=== PATIENT | female | born 1975 | race Two or more races ===

== ENCOUNTER 2017-04-22 05:35 | Emergency (ER) | payer MEDICAID ==
[~2017-04-22] VITALS: Ht 162.6 cm; Wt 81.6 kg
[2017-04-22] MEDS ORDERED: LORazepam 2MG/ML-1ML VIAL IM ONE (08:45)
[2017-04-22 09:14] LABS: Basophils # (auto) 0.1 uL; Basophils % (auto) 0.9 % (0.0-2.0); Eosinophils # (auto) 0.1 uL; Eosinophils % (auto) 1.6 % (0.0-7.0); Hematocrit 41.6 % (36.0-46.0); Hemoglobin 14.2 g/dL (12.2-16.2); Lymphocytes # (auto) 2.2 uL; Lymphocytes % (auto) 27.5 % (10.0-50.0); Mean Corpuscular Hemoglobin 29.7 pg (28.0-32.0); Mean Corpuscular Hgb Conc. 34.2 g/dL (32.0-36.0); Mean Corpuscular Volume 86.9 fL (80.0-100.0); Monocytes # (auto) 0.5 uL; Monocytes % (auto) 5.8 % (0.0-12.0); Neutrophils # (auto) 5.2 uL; Neutrophils % (auto) 64.2 % (37.0-80.0); Nucleated Red Blood Cells % 0.1 %; Platelet Count (auto) 272 10^3/uL (140-450); Red Blood Cells 4.79 10^6/uL (4.0-5.20); Red Cell Distribution Width 12.8 % (11.8-14.3); White Blood Cell 8.1 10^3/uL (4.4-10.8)
[2017-04-22 09:29] VITALS: BP 113/60
[2017-04-22 09:29] LABS: INR 0.96 (0.9-1.15); Partial Thromboplastin Time 27.6 sec (22.64-33.71); Prothrombin Time 10.5 sec (9.37-12.3)
[2017-04-22 09:38] LABS: Alanine Aminotransferase 37 U/L (13-56); Albumin 3.5 g/dL (3.4-5.0); Alkaline Phosphatase 87 U/L (45-117); Anion Gap 9 (5-15); Aspartate Aminotransferase 17 U/L (15-37); BUN/Creatinine Ratio 12.1; Bilirubin, Total 0.6 mg/dL (0.2-1.0); Blood Urea Nitrogen 8 mg/dL (7-18); Calcium 8.5 mg/dL (8.5-10.1); Carbon Dioxide 23 mmol/L (21-32); Chloride 103 mmol/L (98-107); GFR African American 128 mL/min; GFR Non-African American 105 mL/min; Glucose 241 mg/dL (74-106); Potassium 4.1 mmol/L (3.5-5.1); Sodium 135 mmol/L (136-145)
== END 2017-04-22 09:53 | disposition home or self-care (01) ==
LOC: EDBD 05:35 → ER 05:40
DX: R07.9 Chest pain, unspecified (principal); F41.9 Anxiety disorder, unspecified; E11.9 Type 2 diabetes mellitus without complications
CPT/HCPCS: 36415; 71020; 80053; 84484; 84702; 85025; 85610; 85730; 96372; 99285; J2060

== ENCOUNTER 2019-02-05 14:21 | Emergency (ER) | payer MEDICAID ==
[~2019-02-05] VITALS: Ht 162.6 cm; Wt 82.6 kg
[2019-02-05 14:43] VITALS: BP 146/69
[2019-02-05] MEDS ORDERED: IPRATROPIUM BROM 0.5 MG/2.5ML INH SOL NEB ONE (15:00)
[2019-02-05] MEDS ORDERED: ALBUTEROL SULF 2.5 MG/0.5ML(0.5%) NEB SOLN NEB ONE (15:00)
[2019-02-05] MEDS ORDERED: cefTRIAXone SOD 1,000 MG VL IM ONE (15:00)
== END 2019-02-05 15:37 | disposition home or self-care (01) ==
LOC: ER 14:24
DX: J45.909 Unspecified asthma, uncomplicated (principal); J02.9 Acute pharyngitis, unspecified; E11.9 Type 2 diabetes mellitus without complications; F41.9 Anxiety disorder, unspecified
CPT/HCPCS: 71046; 94640; 96372; 99283; J0696; J7611; J7644

== ENCOUNTER 2019-12-24 00:01 | Emergency (ER) | payer MEDICAID ==
[~2019-12-24] VITALS: Ht 162.6 cm; Wt 83.0 kg
[~2019-12-24 00:01] MED LIST: BAC09TP TOP; HYDR-4833 PO; IBUP800T24 PO; METF-929 PO; VALA500T33 PO
[2019-12-24 01:51] LABS: Basophils # (auto) 0.1 10 ^3/uL (0-0.2); Eosinophils # (auto) 0 10 ^3/uL (0-0.8); Eosinophils % (auto) 0.2 % (0.0-7.0); Hematocrit 43.7 % (36.0-46.0); Lymphocytes # (auto) 1.1 10 ^3/uL (0.4-5.4); Lymphocytes % (auto) 10.9 % (10.0-50.0); Mean Corpuscular Hemoglobin 29.8 pg (28.0-32.0); Mean Corpuscular Hgb Conc. 34.3 g/dL (32.0-36.0); Mean Corpuscular Volume 86.9 fL (80.0-100.0); Monocytes # (auto) 0.1 10 ^3/uL (0-1.3); Neutrophils # (auto) 8.5 10 ^3/uL (1.6-8.6); Neutrophils % (auto) 86.9 % (37.0-80.0); Nucleated Red Blood Cells % 0.1 %; Platelet Count (auto) 358 10^3/uL (140-450); Red Blood Cells 5.03 10^6/uL (4.0-5.20); Red Cell Distribution Width 12.9 % (11.8-14.3); White Blood Cell 9.8 10^3/uL (4.4-10.8)
[2019-12-24 02:11] LABS: Albumin 3.7 g/dL (3.4-5.0); BUN/Creatinine Ratio 21.8; Calcium 9.4 mg/dL (8.5-10.1); Potassium 4.4 mmol/L (3.5-5.1)
[2019-12-24 02:27] LABS: Total Protein 7.7 g/dL (6.4-8.2)
[2019-12-24 02:40] LABS: Bilirubin, Total 0.4 mg/dL (0.2-1.0)
[2019-12-24] MEDS ORDERED: InsuLIN REG 1unit/0.01ml Soln (100units/ml) SC ONE (02:45)
[2019-12-24 03:43] LABS: Urine Bacteria NONE SEEN /hpf (None Seen); Urine Blood 2+ /uL (Negative); Urine Specific Gravity 1.037 (1.001-1.035); Urine WBC 2 /hpf (0 - 5)
[2019-12-24 03:47] VITALS: BP 130/72
== END 2019-12-24 03:53 | disposition home or self-care (01) ==
LOC: ER 00:03
DX: E11.65 Type 2 diabetes mellitus with hyperglycemia (principal); J45.909 Unspecified asthma, uncomplicated
CPT/HCPCS: 36415; 80053; 81001; 82010; 85025

== ENCOUNTER 2020-05-24 11:22 | Emergency (ER) | payer MEDICAID ==
[~2020-05-24] VITALS: Ht 162.6 cm; Wt 81.6 kg
[2020-05-24] MEDS ORDERED: methylPREDNISolone SOD SUCC 125 MG/2 ML VL IM ONE (14:30)
[2020-05-24 14:45] VITALS: BP 130/82
== END 2020-05-24 15:21 | disposition home or self-care (01) ==
LOC: ER 11:22
DX: J45.909 Unspecified asthma, uncomplicated (principal); Z20.828 Contact with and (suspected) exposure to other viral communicable diseases
CPT/HCPCS: 36415; 71045; 87426; 96372; 99284; C9803; J2930; U0003

== ENCOUNTER 2020-05-29 09:00 | Emergency (ER) | payer MEDICAID ==
[~2020-05-29] VITALS: Ht 162.6 cm; Wt 81.6 kg
[2020-05-29 10:57] LABS: Basophils # (auto) 0 10 ^3/uL (0-0.2); Basophils % (auto) 0.3 % (0.0-2.0); Eosinophils # (auto) 0 10 ^3/uL (0-0.8); Eosinophils % (auto) 0.5 % (0.0-7.0); Hematocrit 43.9 % (36.0-46.0); Hemoglobin 14.8 g/dL (12.2-16.2); Lymphocytes # (auto) 1.9 10 ^3/uL (0.4-5.4); Lymphocytes % (auto) 26.5 % (10.0-50.0); Mean Corpuscular Hemoglobin 28.8 pg (28.0-32.0); Mean Corpuscular Hgb Conc. 33.7 g/dL (32.0-36.0); Mean Corpuscular Volume 85.5 fL (80.0-100.0); Monocytes # (auto) 0.7 10 ^3/uL (0-1.3); Neutrophils # (auto) 4.4 10 ^3/uL (1.6-8.6); Neutrophils % (auto) 62.7 % (37.0-80.0); Nucleated Red Blood Cells % 0.1 %; Platelet Count (auto) 320 10^3/uL (140-450); Red Blood Cells 5.13 10^6/uL (4.0-5.20); Red Cell Distribution Width 13.1 % (11.8-14.3)
[2020-05-29 11:00] VITALS: BP 132/80
[2020-05-29 11:18] LABS: Albumin 3.6 g/dL (3.4-5.0); Anion Gap 8 (5-15); Blood Urea Nitrogen 16 mg/dL (7-18); Calcium 9.2 mg/dL (8.5-10.1); Carbon Dioxide 26 mmol/L (21-32); Chloride 100 mmol/L (98-107); Glucose 199 mg/dL (74-106); Potassium 3.3 mmol/L (3.5-5.1); Sodium 134 mmol/L (136-145)
[2020-05-29 11:24] LABS: Alanine Aminotransferase 42 U/L (13-56); Alkaline Phosphatase 90 U/L (45-117); Aspartate Aminotransferase 22 U/L (15-37); BUN/Creatinine Ratio 19.3; Bilirubin, Total 0.3 mg/dL (0.2-1.0); GFR African American 96 mL/min; GFR Non-African American 80 mL/min; Total Protein 8.1 g/dL (6.4-8.2)
== END 2020-05-29 11:45 | disposition home or self-care (01) ==
LOC: ER 09:00
DX: U07.1 COVID-19 (principal); J18.9 Pneumonia, unspecified organism; E11.65 Type 2 diabetes mellitus with hyperglycemia
CPT/HCPCS: 36415; 71045; 80053; 84484; 85025; 85379

== ENCOUNTER 2021-06-27 16:31 | Emergency (ER) | payer MEDICARE, MEDICAID ==
[~2021-06-27] VITALS: Ht 162.6 cm; Wt 81.6 kg
[~2021-06-27 16:31] MED LIST changes: -IBUP800T24 PO; +IBUP800T27 PO
[2021-06-27 16:43] VITALS: BP 147/76
[2021-06-27] MEDS ORDERED: SODIUM CHLORIDE 0.9% 1,000 ML IV ONE (18:30)
[2021-06-27 19:10] LABS: Urine Bacteria NONE SEEN /hpf (None Seen); Urine Blood 3+ /uL (Negative); Urine Specific Gravity 1.024 (1.001-1.035); Urine WBC 2 /hpf (0 - 5)
[2021-06-27 19:42] LABS: Basophils # (auto) 0 10 ^3/uL (0-0.2); Basophils % (auto) 0.4 % (0.0-2.0); Eosinophils # (auto) 0 10 ^3/uL (0-0.8); Eosinophils % (auto) 0.1 % (0.0-7.0); Hematocrit 43.2 % (36.0-46.0); Hemoglobin 14.3 g/dL (12.2-16.2); Lymphocytes # (auto) 1.1 10 ^3/uL (0.4-5.4); Lymphocytes % (auto) 11.7 % (10.0-50.0); Mean Corpuscular Hemoglobin 28.5 pg (28.0-32.0); Mean Corpuscular Hgb Conc. 33.2 g/dL (32.0-36.0); Mean Corpuscular Volume 85.7 fL (80.0-100.0); Monocytes # (auto) 0.1 10 ^3/uL (0-1.3); Monocytes % (auto) 1.1 % (0.0-12.0); Neutrophils # (auto) 8.4 10 ^3/uL (1.6-8.6); Neutrophils % (auto) 86.7 % (37.0-80.0); Red Blood Cells 5.04 10^6/uL (4.0-5.20); Red Cell Distribution Width 13.2 % (11.8-14.3); White Blood Cell 9.7 10^3/uL (4.4-10.8)
[2021-06-27 20:24] LABS: Albumin 3.7 g/dL (3.4-5.0); Magnesium 2.6 mg/dL (1.6-2.6); Potassium 3.9 mmol/L (3.5-5.1)
[2021-06-27 20:28] LABS: BUN/Creatinine Ratio 18.8; Bilirubin, Total 0.4 mg/dL (0.2-1.0); Total Protein 7.9 g/dL (6.4-8.2)
== END 2021-06-27 23:19 | disposition home or self-care (01) ==
LOC: ER 16:34
DX: E11.65 Type 2 diabetes mellitus with hyperglycemia (principal); J45.909 Unspecified asthma, uncomplicated; F41.9 Anxiety disorder, unspecified
CPT/HCPCS: 36415; 36600; 71045; 80053; 81001; 82010; 82805; 83735; 84702; 85025

== ENCOUNTER 2022-03-30 19:18 | Inpatient (IN) | payer MEDICARE, MEDICAID ==
[~2022-03-30] VITALS: Ht 162.6 cm; Wt 89.7 kg
[2022-03-30 23:33] LABS: Eosinophils # (auto) 0.4 10 ^3/uL (0-0.8); Eosinophils % (auto) 3.9 % (0.0-7.0); Monocytes # (auto) 0.8 10 ^3/uL (0-1.3)
[2022-03-30 23:36] LABS: Basophils # (auto) 0.1 10 ^3/uL (0-0.2); Hematocrit 42.2 % (36.0-46.0); Hemoglobin 13.7 g/dL (12.2-16.2); Lymphocytes # (auto) 2.5 10 ^3/uL (0.4-5.4); Lymphocytes % (auto) 27.9 % (10.0-50.0); Mean Corpuscular Hemoglobin 26.9 pg (28.0-32.0); Mean Corpuscular Hgb Conc. 32.5 g/dL (32.0-36.0); Mean Corpuscular Volume 82.7 fL (80.0-100.0); Monocytes % (auto) 9.1 % (0.0-12.0); Neutrophils # (auto) 5.3 10 ^3/uL (1.6-8.6); Neutrophils % (auto) 58.1 % (37.0-80.0); Nucleated Red Blood Cells % 0.1 %; Red Cell Distribution Width 14.7 % (11.8-14.3); White Blood Cell 9.1 10^3/uL (4.4-10.8)
[2022-03-30 23:52] LABS: Albumin 3.4 g/dL (3.4-5.0); Calcium 8.6 mg/dL (8.5-10.1)
[2022-03-30 23:55] LABS: BUN/Creatinine Ratio 25.3
[2022-03-30 23:58] LABS: Bilirubin, Total 0.4 mg/dL (0.2-1.0); Total Protein 7.4 g/dL (6.4-8.2)
[2022-03-31] MEDS ORDERED: ONDANSETRON HCL 4 MG/2 ML VIAL IV ONE ×2 (00:30→05:45)
[2022-03-31] MEDS ORDERED: KETOROLAC TROMETH 30 MG/ML 1ML VIAL IV ONE (00:30)
[2022-03-31 01:09] LABS: Urine Bacteria NONE SEEN /hpf (None Seen); Urine Blood Negative /uL (Negative); Urine Specific Gravity 1.034 (1.001-1.035); Urine WBC 2 /hpf (0 - 5)
[2022-03-31] MEDS ORDERED: HYDROmorphone HCL 2 MG/ML VL/or syr IV ONE (05:45)
[2022-03-31] MEDS ORDERED: DEXTROSE (50%) 50ML SYRG IV PRN (06:30)
[2022-03-31] MEDS ORDERED: SODIUM CHLORIDE 0.9% 1,000 ML IV SCH (06:30)
[2022-03-31] MEDS ORDERED: MORPHINE SULFATE INJ 2 MG/ml SYRG IV PRN (06:30)
[2022-03-31] MEDS: PANTOPRAZOLE 40 MG/10 ML VIAL INJ IV SCH (11:10)
[2022-03-31] MEDS: ONDANSETRON HCL 4 MG/2 ML VIAL IV PRN ×2 (11:15→23:44)
[2022-03-31] MEDS: ACCU-CHEK COMFORT CURVE STRIP VI SCH ×3 (13:31→23:32)
[2022-03-31] MEDS: InsuLIN REG 1unit/0.01ml Soln (100units/ml) SC SCH ×3 (13:32→23:32)
[2022-03-31] MEDS ORDERED: HYDROmorphone HCL 2 MG/ML VL/or syr IV PRN (14:15)
[2022-03-31] MEDS: LACTATED RINGER'S 1,000 ML IV SCH ×2 (14:43→22:04)
[2022-03-31 16:55] VITALS: BP 131/72
[2022-03-31] MEDS ORDERED: EMPA1TAB PO (18:15)
[2022-03-31 22:00] VITALS: BP 134/72
[2022-04-01 05:00] VITALS: BP 117/55
[2022-04-01] MEDS: ACCU-CHEK COMFORT CURVE STRIP VI SCH ×4 (05:29→22:51)
[2022-04-01] MEDS: InsuLIN REG 1unit/0.01ml Soln (100units/ml) SC SCH ×4 (05:29→23:20)
[2022-04-01] MEDS: LACTATED RINGER'S 1,000 ML IV SCH ×2 (05:34→18:51)
[2022-04-01 06:29] LABS: Albumin 2.7 g/dL (3.4-5.0); Calcium 8.4 mg/dL (8.5-10.1); Potassium 3.6 mmol/L (3.5-5.1)
[2022-04-01 06:34] LABS: BUN/Creatinine Ratio 19.6; Bilirubin, Total 0.5 mg/dL (0.2-1.0); Total Protein 5.8 g/dL (6.4-8.2)
[2022-04-01 06:36] LABS: Cholesterol 201 mg/dL (< 200); HDL Cholesterol 47 mg/dL (40-59); LDL Cholesterol 127 mg/dL (< 100); Lipase 213 U/L (73-393); Triglycerides 248 mg/dL (< 150)
[2022-04-01 06:49] LABS: Basophils # (auto) 0 10 ^3/uL (0-0.2); Basophils % (auto) 0.6 % (0.0-2.0); Eosinophils # (auto) 0.2 10 ^3/uL (0-0.8); Eosinophils % (auto) 3.6 % (0.0-7.0); Hematocrit 37.9 % (36.0-46.0); Hemoglobin 12.5 g/dL (12.2-16.2); Lymphocytes # (auto) 1.8 10 ^3/uL (0.4-5.4); Lymphocytes % (auto) 27.9 % (10.0-50.0); Mean Corpuscular Hgb Conc. 33.1 g/dL (32.0-36.0); Mean Corpuscular Volume 81.7 fL (80.0-100.0); Monocytes # (auto) 0.5 10 ^3/uL (0-1.3); Monocytes % (auto) 7.9 % (0.0-12.0); Neutrophils # (auto) 3.9 10 ^3/uL (1.6-8.6); Nucleated Red Blood Cells % 0.1 %; Red Blood Cells 4.64 10^6/uL (4.0-5.20); Red Cell Distribution Width 14.7 % (11.8-14.3); White Blood Cell 6.5 10^3/uL (4.4-10.8)
[2022-04-01 09:07] VITALS: BP 114/77
[2022-04-01] MEDS: PANTOPRAZOLE 40 MG/10 ML VIAL INJ IV SCH (09:16)
[2022-04-01] MEDS: OXYCODONE W/ ACETAMINOPHEN 5/325MG TABLET PO PRN ×2 (10:36→21:28)
[2022-04-01 12:30] VITALS: BP 133/76
[2022-04-01] MEDS ORDERED: ATOR-47 PO (14:37)
[2022-04-01 17:20] VITALS: BP 127/59
[2022-04-01 22:00] VITALS: BP 129/71
[2022-04-01] MEDS ORDERED: ATORVASTATIN 20 MG TAB PO SCH (22:00)
[2022-04-02] MEDS: LACTATED RINGER'S 1,000 ML IV SCH (03:32)
[2022-04-02 05:00] VITALS: BP 108/46
[2022-04-02] MEDS: ACCU-CHEK COMFORT CURVE STRIP VI SCH ×2 (05:36→12:00)
[2022-04-02] MEDS: InsuLIN REG 1unit/0.01ml Soln (100units/ml) SC SCH ×3 (05:47→12:00)
[2022-04-02] MEDS: OXYCODONE W/ ACETAMINOPHEN 5/325MG TABLET PO PRN (06:32)
[2022-04-02 09:00] VITALS: BP 123/69
[2022-04-02] MEDS: PANTOPRAZOLE 40 MG/10 ML VIAL INJ IV SCH (09:19)
[2022-04-02] MEDS ORDERED: DEXL30CA4 PO (10:19)
[2022-04-02 10:49] VITALS: BP 123/69
[2022-04-04] MEDS ORDERED: ONDA-144 PO (12:47)
== END 2022-04-02 12:08 | disposition home or self-care (01) | DRG 440 ==
LOC: ER 19:21 → OVERFLOW 03-31 06:32 → EAST 03-31 16:34
PROVIDERS: ADMIT Nurse Practitioner; ATTEND Nurse Practitioner Acute Care
DX: K85.90 Acute pancreatitis without necrosis or infection, unspecified (principal); E11.9 Type 2 diabetes mellitus without complications; E66.9 Obesity, unspecified; J45.909 Unspecified asthma, uncomplicated; K44.9 Diaphragmatic hernia without obstruction or gangrene; K59.00 Constipation, unspecified; Z20.822 Contact with and (suspected) exposure to COVID-19; G89.29 Other chronic pain; F41.9 Anxiety disorder, unspecified; K58.9 Irritable bowel syndrome, unspecified; M54.9 Dorsalgia, unspecified; E78.5 Hyperlipidemia, unspecified; Z79.891 Long term (current) use of opiate analgesic; Z68.33 Body mass index [BMI] 33.0-33.9, adult; Z88.8 Allergy status to other drugs, medicaments and biological substances; Z79.899 Other long term (current) drug therapy; Z83.3 Family history of diabetes mellitus
CPT/HCPCS: 36415; 74176; 76705; 80053; 80061; 81001; 81025; 82962; 83036; 83690; 84702; 85025; 87426; 96361; 96374; 96375; C9113; G0378; J1815; J1885; J2405

== ENCOUNTER 2022-12-24 08:46 | Emergency (ER) | payer MEDICARE, MEDICAID ==
[~2022-12-24] VITALS: Ht 162.6 cm; Wt 81.8 kg
[~2022-12-24 08:46] MED LIST changes: +ATOR-47 PO; +DEXL30CA4 PO; +EMPA1TAB PO; +IBUP-1456 PO; -IBUP800T27 PO; +ONDA-144 PO
[2022-12-24 09:42] LABS: Basophils # (auto) 0.1 10 ^3/uL (0-0.2); Eosinophils # (auto) 0.4 10 ^3/uL (0-0.8); Hemoglobin 11.9 g/dL (12.2-16.2); Lymphocytes # (auto) 2.1 10 ^3/uL (0.4-5.4); Mean Corpuscular Hemoglobin 24.2 pg (28.0-32.0); Monocytes # (auto) 0.6 10 ^3/uL (0-1.3); Neutrophils # (auto) 5.8 10 ^3/uL (1.6-8.6); Red Blood Cells 4.92 10^6/uL (4.0-5.20)
[2022-12-24 09:44] LABS: Basophils % (auto) 0.9 % (0.0-2.0); Eosinophils % (auto) 4.2 % (0.0-7.0); Lymphocytes % (auto) 23.9 % (10.0-50.0); Mean Corpuscular Hgb Conc. 32.2 g/dL (32.0-36.0); Mean Corpuscular Volume 75.1 fL (80.0-100.0); Monocytes % (auto) 6.7 % (0.0-12.0); Neutrophils % (auto) 64.3 % (37.0-80.0); Red Cell Distribution Width 14.7 % (11.8-14.3)
[2022-12-24 09:56] LABS: Albumin 3.3 g/dL (3.4-5.0); BUN/Creatinine Ratio 21.3 (10.0-20.0); Calcium 8.8 mg/dL (8.5-10.1); Potassium 3.7 mmol/L (3.5-5.1)
[2022-12-24 09:59] LABS: Bilirubin, Total 0.3 mg/dL (0.2-1.0); Total Protein 7.5 g/dL (6.4-8.2)
[2022-12-24 10:41] LABS: Urine Bacteria NONE SEEN /hpf (None Seen); Urine Blood 3+ /uL (Negative); Urine Mucus FEW (None Seen); Urine Specific Gravity 1.025 (1.001-1.035); Urine WBC 2 /hpf (0 - 5)
[2022-12-24] MEDS ORDERED: SODIUM CHLORIDE 0.9% 1,000 ML IV ONE (11:45)
[2022-12-24 14:12] VITALS: BP 124/70
== END 2022-12-24 15:19 | disposition home or self-care (01) ==
LOC: ER 08:46
DX: R10.13 Epigastric pain (principal); E11.65 Type 2 diabetes mellitus with hyperglycemia; F41.9 Anxiety disorder, unspecified; J45.909 Unspecified asthma, uncomplicated; Z98.890 Other specified postprocedural states; Z88.8 Allergy status to other drugs, medicaments and biological substances; Z79.84 Long term (current) use of oral hypoglycemic drugs; Z79.1 Long term (current) use of non-steroidal anti-inflammatories (NSAID); Z79.899 Other long term (current) drug therapy
CPT/HCPCS: 36415; 74176; 80053; 81001; 81025; 82150; 82962; 83690; 85025; 96360; 99284; J7030

== ENCOUNTER 2023-01-23 01:25 | Inpatient (IN) | payer MEDICARE, MEDICAID ==
[~2023-01-23] VITALS: Ht 162.6 cm; Wt 86.0 kg
[2023-01-23 02:17] LABS: Basophils # (auto) 0.1 10 ^3/uL (0-0.2); Eosinophils # (auto) 0.1 10 ^3/uL (0-0.8); Eosinophils % (auto) 0.6 % (0.0-7.0); Hematocrit 35.6 % (36.0-46.0); Hemoglobin 11.4 g/dL (12.2-16.2); Monocytes # (auto) 0.7 10 ^3/uL (0-1.3); White Blood Cell 12.2 10^3/uL (4.4-10.8)
[2023-01-23 02:18] LABS: Basophils % (auto) 0.6 % (0.0-2.0); Lymphocytes # (auto) 1.9 10 ^3/uL (0.4-5.4); Lymphocytes % (auto) 15.2 % (10.0-50.0); Mean Corpuscular Hemoglobin 24.1 pg (28.0-32.0); Mean Corpuscular Volume 75.5 fL (80.0-100.0); Monocytes % (auto) 5.5 % (0.0-12.0); Neutrophils # (auto) 9.6 10 ^3/uL (1.6-8.6); Neutrophils % (auto) 78.1 % (37.0-80.0); Red Blood Cells 4.72 10^6/uL (4.0-5.20); Red Cell Distribution Width 16.8 % (11.8-14.3)
[2023-01-23 02:32] LABS: Albumin 3.3 g/dL (3.4-5.0); Calcium 9.4 mg/dL (8.5-10.1); Potassium 3.9 mmol/L (3.5-5.1)
[2023-01-23 02:35] LABS: BUN/Creatinine Ratio 18.4 (10.0-20.0); Bilirubin, Total 0.3 mg/dL (0.2-1.0); Total Protein 7.1 g/dL (6.4-8.2)
[2023-01-23 02:40] VITALS: PULSE 82; RESP 16; O2SAT 96
[2023-01-23] MEDS ORDERED: cefTRIAXone 1GM/50ML D5W 50 ML IV ONE (04:15)
[2023-01-23] MEDS ORDERED: PANTOPRAZOLE 40mg/50ML NS AE 50 ML IV ONE ×3 (04:15→11:00)
[2023-01-23] MEDS ORDERED: PANTOPRAZOLE 80 MG in SODIUM CHL 0.9% 100 ML IV ONE (04:15)
[2023-01-23] MEDS ORDERED: PANTOPRAZOLE 40 MG/10 ML VIAL INJ IV ONE (04:35)
[2023-01-23] MEDS ORDERED: MORPHINE SULFATE INJ 2 MG/ml SYRG IV PRN (06:45)
[2023-01-23] MEDS ORDERED: DEXTROSE (50%) 50ML SYRG IV PRN (06:45)
[2023-01-23] MEDS ORDERED: ACETAMINOPHEN 325 MG TAB PO PRN (06:45)
[2023-01-23] MEDS ORDERED: DOCUSATE SOD 100 MG CAP PO PRN (06:45)
[2023-01-23] MEDS ORDERED: NITROGLYCERIN 0.4 MG SL TAB SL PRN (06:45)
[2023-01-23] MEDS ORDERED: ONDANSETRON HCL 4 MG/2 ML VIAL IV PRN (06:45)
[2023-01-23] MEDS: ACCU-CHEK COMFORT CURVE STRIP VI SCH ×4 (07:15→22:13)
[2023-01-23 07:29] LABS: Basophils # (auto) 0.1 10 ^3/uL (0-0.2); Basophils % (auto) 0.5 % (0.0-2.0); Eosinophils # (auto) 0.1 10 ^3/uL (0-0.8); Hemoglobin 10.6 g/dL (12.2-16.2); Lymphocytes # (auto) 1.8 10 ^3/uL (0.4-5.4); White Blood Cell 11.6 10^3/uL (4.4-10.8)
[2023-01-23 07:32] LABS: Eosinophils % (auto) 0.6 % (0.0-7.0); Hematocrit 33.1 % (36.0-46.0); Lymphocytes % (auto) 15.5 % (10.0-50.0); Mean Corpuscular Hgb Conc. 32.1 g/dL (32.0-36.0); Mean Corpuscular Volume 74.8 fL (80.0-100.0); Monocytes # (auto) 0.7 10 ^3/uL (0-1.3); Monocytes % (auto) 5.7 % (0.0-12.0); Neutrophils % (auto) 77.7 % (37.0-80.0); Red Blood Cells 4.42 10^6/uL (4.0-5.20); Red Cell Distribution Width 16.4 % (11.8-14.3)
[2023-01-23 07:33] LABS: Potassium 3.7 mmol/L (3.5-5.1)
[2023-01-23] MEDS: HYDROcodone-ACET 5/325MG TAB PO PRN ×3 (07:37→22:13)
[2023-01-23] MEDS: InsuLIN REG 1unit/0.01ml Soln (100units/ml) SC SCH ×4 (07:38→22:23)
[2023-01-23] MEDS: SODIUM CHLORIDE 0.9% 1,000 ML IV SCH ×2 (07:38→22:21)
[2023-01-23 07:39] LABS: Albumin 3.1 g/dL (3.4-5.0); BUN/Creatinine Ratio 19.1 (10.0-20.0); Bilirubin, Total 0.2 mg/dL (0.2-1.0); Total Protein 6.8 g/dL (6.4-8.2)
[2023-01-23 07:55] VITALS: PULSE 92; RESP 17; O2SAT 97
[2023-01-23] MEDS: cefTRIAXone 1GM/50ML D5W 50 ML IV SCH (09:00)
[2023-01-23 19:55] VITALS: PULSE 77; RESP 15; O2SAT 96
[2023-01-23 21:38] VITALS: PULSE 82
[2023-01-23 21:50] VITALS: BP 132/67; PULSE 77; RESP 18; TEMP 98.2; O2SAT 98
[2023-01-23 23:00] VITALS: BP 132/67; PULSE 77; RESP 18; TEMP 98.2; O2SAT 98
[2023-01-24] VITALS (7 sets, daily range): BP systolic 127–136; BP diastolic 56–71; PULSE 69–95; RESP 16–20; TEMP 97.9–98.4; O2SAT 92–98
[2023-01-24] MEDS ORDERED: SEMA2INJ3 SC (00:15)
[2023-01-24] MEDS: HYDROcodone-ACET 5/325MG TAB PO PRN ×3 (04:32→21:28)
[2023-01-24] MEDS: ACCU-CHEK COMFORT CURVE STRIP VI SCH ×4 (06:05→21:24)
[2023-01-24] MEDS: InsuLIN REG 1unit/0.01ml Soln (100units/ml) SC SCH ×4 (06:05→21:27)
[2023-01-24 06:32] LABS: Potassium 3.5 mmol/L (3.5-5.1)
[2023-01-24 06:37] LABS: Eosinophils # (auto) 0.2 10 ^3/uL (0-0.8); Hematocrit 33.1 % (36.0-46.0); Monocytes # (auto) 0.6 10 ^3/uL (0-1.3); Neutrophils # (auto) 6.5 10 ^3/uL (1.6-8.6); Red Blood Cells 4.39 10^6/uL (4.0-5.20); Red Cell Distribution Width 16.6 % (11.8-14.3)
[2023-01-24 06:39] LABS: Basophils # (auto) 0.1 10 ^3/uL (0-0.2); Basophils % (auto) 0.7 % (0.0-2.0); Eosinophils % (auto) 2.1 % (0.0-7.0); Hemoglobin 10.7 g/dL (12.2-16.2); Lymphocytes # (auto) 2.2 10 ^3/uL (0.4-5.4); Lymphocytes % (auto) 22.9 % (10.0-50.0); Mean Corpuscular Hemoglobin 24.3 pg (28.0-32.0); Mean Corpuscular Hgb Conc. 32.2 g/dL (32.0-36.0); Mean Corpuscular Volume 75.4 fL (80.0-100.0); Monocytes % (auto) 6.1 % (0.0-12.0); Neutrophils % (auto) 68.2 % (37.0-80.0); Nucleated Red Blood Cells % 0.1 %; White Blood Cell 9.6 10^3/uL (4.4-10.8)
[2023-01-24 06:48] LABS: Albumin 2.8 g/dL (3.4-5.0); BUN/Creatinine Ratio 13.8 (10.0-20.0); Bilirubin, Total 0.3 mg/dL (0.2-1.0); Calcium 8.1 mg/dL (8.5-10.1); Total Protein 6.3 g/dL (6.4-8.2)
[2023-01-24] MEDS: cefTRIAXone 1GM/50ML D5W 50 ML IV SCH (09:00)
[2023-01-24] MEDS: SODIUM CHLORIDE 0.9% 1,000 ML IV SCH (16:05)
[2023-01-25] MEDS: HYDROcodone-ACET 5/325MG TAB PO PRN (02:42)
[2023-01-25 05:11] VITALS: BP 134/62; PULSE 73; RESP 17; TEMP 98; O2SAT 97
[2023-01-25] MEDS: InsuLIN REG 1unit/0.01ml Soln (100units/ml) SC SCH ×2 (06:46→11:30)
[2023-01-25] MEDS: ACCU-CHEK COMFORT CURVE STRIP VI SCH ×2 (06:49→11:30)
[2023-01-25 08:00] VITALS: PULSE 64; PULSE 80; RESP 18; O2SAT 97
[2023-01-25] MEDS: SODIUM CHLORIDE 0.9% 1,000 ML IV SCH (08:45)
[2023-01-25 09:00] VITALS: BP 129/70; PULSE 65; RESP 20; TEMP 98.3; O2SAT 95
[2023-01-25] MEDS: cefTRIAXone 1GM/50ML D5W 50 ML IV SCH (09:55)
[2023-01-25 10:39] VITALS: TEMP 36.8
[2023-01-25 12:42] VITALS: BP 149/77; PULSE 72; RESP 18; TEMP 98.5; O2SAT 97
== END 2023-01-25 14:22 | disposition home or self-care (01) | DRG 378 ==
LOC: ER 01:28 → TELE 06:47 → TELE-EAST 21:50
PROVIDERS: ADMIT Family Medicine; ATTEND Family Medicine
DX: K62.5 Hemorrhage of anus and rectum (principal); D62 Acute posthemorrhagic anemia; N92.0 Excessive and frequent menstruation with regular cycle; D72.829 Elevated white blood cell count, unspecified; E11.65 Type 2 diabetes mellitus with hyperglycemia; G89.29 Other chronic pain; K59.00 Constipation, unspecified; J45.909 Unspecified asthma, uncomplicated; F41.9 Anxiety disorder, unspecified; M54.9 Dorsalgia, unspecified; R10.2 Pelvic and perineal pain
CPT/HCPCS: 36415; 71045; 74176; 76856; 80053; 82962; 83036; 83690; 84484; 85025; 86850; 86900; 86901; 96365; 96367; 96368; C9113; G0378; J0696; J1815

== ENCOUNTER 2023-03-09 08:49 | Inpatient (IN) | payer MEDICARE, MEDICAID ==
[~2023-03-09] VITALS: Ht 162.6 cm; Wt 90.5 kg
[~2023-03-09 08:49] MED LIST changes: +SEMA2INJ3 SC
[2023-03-09 09:51] LABS: Basophils # (auto) 0.1 10 ^3/uL (0-0.2); Eosinophils # (auto) 0.3 10 ^3/uL (0-0.8)
[2023-03-09 09:53] LABS: Basophils % (auto) 0.9 % (0.0-2.0); Eosinophils % (auto) 3.1 % (0.0-7.0); Hemoglobin 11.6 g/dL (12.2-16.2); Lymphocytes # (auto) 1.4 10 ^3/uL (0.4-5.4); Lymphocytes % (auto) 13.1 % (10.0-50.0); Mean Corpuscular Volume 75.6 fL (80.0-100.0); Monocytes # (auto) 1.1 10 ^3/uL (0-1.3); Monocytes % (auto) 10.1 % (0.0-12.0); Neutrophils % (auto) 72.8 % (37.0-80.0); Red Blood Cells 4.63 10^6/uL (4.0-5.20); Red Cell Distribution Width 16.8 % (11.8-14.3)
[2023-03-09 10:09] LABS: Urine Bacteria FEW /hpf (None Seen); Urine Blood Negative /uL (Negative); Urine Clarity Clear (Clear); Urine Color Yellow (Yellow); Urine Mucus FEW (None Seen); Urine Protein, UAD 3+ (Negative); Urine Specific Gravity 1.035 (1.001-1.035); Urine Urobilinogen Normal (Negative); Urine WBC 4 /hpf (0 - 5)
[2023-03-09 10:13] LABS: Alanine Aminotransferase 24 U/L (7-40); Albumin 3.9 g/dL (3.2-4.8); Alkaline Phosphatase 97 U/L (46-116); Anion Gap 6 (5-15); Aspartate Aminotransferase 19 U/L (13-40); Blood Urea Nitrogen 10 mg/dL (9-23); Calcium 8.9 mg/dL (8.7-10.4); Carbon Dioxide 25 mmol/L (20-30); Chloride 104 mmol/L (98-107); Glucose 303 mg/dL (74-106); Lipase 61 U/L (12-53); Potassium 3.6 mmol/L (3.5-5.1); Sodium 135 mmol/L (136-145)
[2023-03-09 10:14] LABS: Bilirubin, Total 0.4 mg/dL (0.2-1.0); Total Protein 6.6 g/dL (5.7-8.2)
[2023-03-09] MEDS ORDERED: metroNIDAZOLE 500MG/100ML 100 ML IV ONE (12:15)
[2023-03-09] MEDS ORDERED: cefTRIAXone 1GM/50ML D5W 50 ML IV ONE (12:15)
[2023-03-09] MEDS ORDERED: SODIUM CHLORIDE 0.9% 1,000 ML IV ONE ×2 (12:15)
[2023-03-09] MEDS ORDERED: KETOROLAC TROMETH 30 MG/ML 1ML VIAL IV ONE (13:00)
[2023-03-09] MEDS ORDERED: PANTOPRAZOLE 40 MG/10 ML VIAL INJ IV ONE (13:15)
[2023-03-09] MEDS ORDERED: DEXTROSE (50%) 50ML SYRG IV PRN (13:15)
[2023-03-09] MEDS ORDERED: ACETAMINOPHEN 325 MG TAB PO PRN (13:15)
[2023-03-09 13:39] LABS: LDL Cholesterol 87 mg/dL (< 100); Triglycerides 192 mg/dL (< 150)
[2023-03-09 13:40] LABS: HDL Cholesterol 45 mg/dL (40-59)
[2023-03-09 13:41] LABS: Cholesterol 160 mg/dL (< 200)
[2023-03-09 14:06] VITALS: PULSE 83; RESP 19; O2SAT 95
[2023-03-09] MEDS: MORPHINE SULFATE INJ 2 MG/ml SYRG IV PRN ×2 (15:42→22:37)
[2023-03-09] MEDS: SODIUM CHLORIDE 0.9% 1,000 ML IV SCH ×2 (16:55→22:35)
[2023-03-09] MEDS: InsuLIN REG 1unit/0.01ml Soln (100units/ml) SC SCH ×2 (16:56→22:36)
[2023-03-09] MEDS: ACCU-CHEK COMFORT CURVE STRIP VI SCH ×2 (16:56→22:35)
[2023-03-09 19:30] VITALS: PULSE 83; RESP 20; O2SAT 96
[2023-03-09] MEDS: metroNIDAZOLE 500MG/100ML 100 ML IV SCH (20:21)
[2023-03-09 21:37] VITALS: RESP 17
[2023-03-09] MEDS ORDERED: DOCU-94 PO (21:53)
[2023-03-09] MEDS ORDERED: ATORVASTATIN 20 MG TAB PO SCH (22:00)
[2023-03-09] MEDS: metFORMIN HYDROCHLORIDE 500 MG TAB PO SCH (22:35)
[2023-03-10] VITALS (7 sets, daily range): BP systolic 141–165; BP diastolic 66–82; PULSE 74–89; RESP 18–20; TEMP 97.9–98.8; O2SAT 95–98
[2023-03-10] MEDS: KETOROLAC TROMETH 30 MG/ML 1ML VIAL IV PRN (01:12)
[2023-03-10] MEDS: metroNIDAZOLE 500MG/100ML 100 ML IV SCH ×3 (03:59→20:53)
[2023-03-10] MEDS: SODIUM CHLORIDE 0.9% 1,000 ML IV SCH ×3 (05:55→22:44)
[2023-03-10] MEDS: InsuLIN REG 1unit/0.01ml Soln (100units/ml) SC SCH ×4 (06:15→22:24)
[2023-03-10] MEDS: ACCU-CHEK COMFORT CURVE STRIP VI SCH ×3 (06:15→16:58)
[2023-03-10] MEDS: MORPHINE SULFATE INJ 2 MG/ml SYRG IV PRN ×2 (06:21→22:37)
[2023-03-10 07:26] LABS: Basophils # (auto) 0 10 ^3/uL (0-0.2); Eosinophils # (auto) 0.3 10 ^3/uL (0-0.8); Monocytes # (auto) 0.7 10 ^3/uL (0-1.3); Monocytes % (auto) 10.3 % (0.0-12.0); Nucleated Red Blood Cells % 0.1 %; White Blood Cell 6.4 10^3/uL (4.4-10.8)
[2023-03-10 07:29] LABS: Basophils % (auto) 0.6 % (0.0-2.0); Eosinophils % (auto) 5.3 % (0.0-7.0); Hematocrit 31.4 % (36.0-46.0); Hemoglobin 10.2 g/dL (12.2-16.2); Lymphocytes # (auto) 2.1 10 ^3/uL (0.4-5.4); Lymphocytes % (auto) 32.2 % (10.0-50.0); Mean Corpuscular Hemoglobin 24.7 pg (28.0-32.0); Mean Corpuscular Hgb Conc. 32.5 g/dL (32.0-36.0); Mean Corpuscular Volume 75.9 fL (80.0-100.0); Neutrophils # (auto) 3.3 10 ^3/uL (1.6-8.6); Neutrophils % (auto) 51.6 % (37.0-80.0); Red Blood Cells 4.14 10^6/uL (4.0-5.20); Red Cell Distribution Width 16.4 % (11.8-14.3)
[2023-03-10 07:31] LABS: Alanine Aminotransferase 20 U/L (7-40); Albumin 3.4 g/dL (3.2-4.8); Alkaline Phosphatase 65 U/L (46-116); Anion Gap 4 (5-15); Aspartate Aminotransferase 21 U/L (13-40); BUN/Creatinine Ratio 13.1 (10.0-20.0); Bilirubin, Total 0.3 mg/dL (0.2-1.0); Blood Urea Nitrogen 8 mg/dL (9-23); Calcium 7.8 mg/dL (8.7-10.4); Carbon Dioxide 24 mmol/L (20-30); Chloride 110 mmol/L (98-107); Glucose 118 mg/dL (74-106); Potassium 3.3 mmol/L (3.5-5.1); Sodium 138 mmol/L (136-145); Total Protein 5.5 g/dL (5.7-8.2)
[2023-03-10] MEDS: cefTRIAXone 1GM/50ML D5W 50 ML IV SCH (09:11)
[2023-03-10] MEDS ORDERED: PANTOPRAZOLE 40 MG/10 ML VIAL INJ IV SCH (10:00)
[2023-03-10] MEDS: metFORMIN HYDROCHLORIDE 500 MG TAB PO SCH (10:06)
[2023-03-10] MEDS ORDERED: BECL40AE11 INH (15:50)
[2023-03-10] MEDS ORDERED: METF-372 PO (15:50)
[2023-03-10] MEDS ORDERED: ONDA-188 PO (15:50)
[2023-03-10] MEDS ORDERED: DOCU-265 PO (15:50)
[2023-03-10] MEDS ORDERED: DEXL30CA6 PO (15:50)
[2023-03-10] MEDS ORDERED: IBUP-1456 PO (15:50)
[2023-03-10] MEDS ORDERED: CHOL20007 PO (15:50)
[2023-03-10] MEDS ORDERED: SEMA2INJ3 SC (15:50)
[2023-03-10] MEDS ORDERED: PERCOT PO (15:50)
[2023-03-11] MEDS: ACCU-CHEK COMFORT CURVE STRIP VI SCH ×4 (00:22→17:00)
[2023-03-11] MEDS: KETOROLAC TROMETH 30 MG/ML 1ML VIAL IV PRN ×2 (01:34→09:12)
[2023-03-11] MEDS: metroNIDAZOLE 500MG/100ML 100 ML IV SCH ×2 (03:53→12:00)
[2023-03-11 05:25] VITALS: BP 143/70; PULSE 78; RESP 18; TEMP 98.3; O2SAT 96
[2023-03-11] MEDS: InsuLIN REG 1unit/0.01ml Soln (100units/ml) SC SCH ×3 (06:32→17:00)
[2023-03-11] MEDS: SODIUM CHLORIDE 0.9% 1,000 ML IV SCH ×2 (06:55→15:15)
[2023-03-11] MEDS: MORPHINE SULFATE INJ 2 MG/ml SYRG IV PRN (07:06)
[2023-03-11 08:00] VITALS: BP 138/74; PULSE 77; PULSE 89; RESP 20; TEMP 98.5; O2SAT 98
[2023-03-11] MEDS ORDERED: metFORMIN HYDROCHLORIDE 500 MG TAB PO SCH (08:00)
[2023-03-11 09:00] VITALS: BP 154/76; PULSE 70; RESP 18; TEMP 97.9; O2SAT 97
[2023-03-11] MEDS: cefTRIAXone 1GM/50ML D5W 50 ML IV SCH ×2 (09:13→12:00)
[2023-03-11] MEDS ORDERED: PANTOPRAZOLE 40 MG/10 ML VIAL INJ IV SCH (10:00)
[2023-03-11] MEDS ORDERED: PANT40T PO (11:48)
[2023-03-11 12:43] VITALS: BP 154/76; PULSE 96; RESP 19; TEMP 98.3; O2SAT 96
[2023-03-11 13:00] VITALS: BP 152/71; PULSE 75; RESP 18; TEMP 98.1; O2SAT 98
[2023-03-11 16:46] VITALS: BP 153/75; PULSE 77; RESP 20; TEMP 98.7; O2SAT 97
== END 2023-03-11 18:00 | disposition home or self-care (01) | DRG 439 ==
LOC: ER 08:49 → OVERFLOW 13:06 → WEST WING 21:16
PROVIDERS: ADMIT Nurse Practitioner Family; ATTEND Family Medicine
DX: K85.90 Acute pancreatitis without necrosis or infection, unspecified (principal); D62 Acute posthemorrhagic anemia; K62.5 Hemorrhage of anus and rectum; E11.65 Type 2 diabetes mellitus with hyperglycemia; K44.9 Diaphragmatic hernia without obstruction or gangrene; F41.9 Anxiety disorder, unspecified; J45.909 Unspecified asthma, uncomplicated; E66.01 Morbid (severe) obesity due to excess calories; G89.29 Other chronic pain; N92.0 Excessive and frequent menstruation with regular cycle; Z88.2 Allergy status to sulfonamides; Z88.3 Allergy status to other anti-infective agents; Z82.49 Family history of ischemic heart disease and other diseases of the circulatory system; Z83.3 Family history of diabetes mellitus; Z82.3 Family history of stroke; Z68.30 Body mass index [BMI] 30.0-30.9, adult
CPT/HCPCS: 36415; 74176; 80053; 80061; 81001; 81025; 82962; 83036; 83605; 83690; 84443; 85025; 87040; 96365; 96367; C9113; G0378; J0696; J1815; J1885; J3490

== ENCOUNTER 2023-09-01 11:12 | Inpatient (IN) | payer MEDICARE, MEDICAID ==
[~2023-09-01] VITALS: Ht 162.6 cm; Wt 86.5 kg
[~2023-09-01 11:12] MED LIST changes: -ATOR-47 PO; -BAC09TP TOP; +BECL40AE11 INH; +CHOL20007 PO; -DEXL30CA4 PO; +DEXL30CA6 PO; +DOCU-265 PO; -EMPA1TAB PO; -HYDR-4833 PO; +METF-372 PO; -METF-929 PO; -ONDA-144 PO; +ONDA-188 PO; +PANT40T PO; +PERCOT PO; -VALA500T33 PO
[2023-09-01 12:02] LABS: Basophils # (auto) 0.1 10 ^3/uL (0-0.2); Eosinophils # (auto) 0.3 10 ^3/uL (0-0.8); Hemoglobin 11.7 g/dL (12.2-16.2); Lymphocytes # (auto) 1.9 10 ^3/uL (0.4-5.4); Monocytes # (auto) 0.6 10 ^3/uL (0-1.3); Neutrophils # (auto) 5.2 10 ^3/uL (1.6-8.6); White Blood Cell 8.1 10^3/uL (4.4-10.8)
[2023-09-01 12:03] LABS: Basophils % (auto) 0.9 % (0.0-2.0); Eosinophils % (auto) 3.3 % (0.0-7.0); Hematocrit 37.1 % (36.0-46.0); Lymphocytes % (auto) 23.8 % (10.0-50.0); Mean Corpuscular Hemoglobin 23.4 pg (28.0-32.0); Mean Corpuscular Hgb Conc. 31.6 g/dL (32.0-36.0); Monocytes % (auto) 7.8 % (0.0-12.0); Neutrophils % (auto) 64.2 % (37.0-80.0); Red Blood Cells 5.01 10^6/uL (4.0-5.20); Red Cell Distribution Width 16.1 % (11.8-14.3)
[2023-09-01] MEDS: SODIUM CHLORIDE 0.9% 1,000 ML IVB ONE (12:15)
[2023-09-01] MEDS: PANTOPRAZOLE 40 MG/10 ML VIAL INJ IV ONE (12:15)
[2023-09-01] MEDS: MORPHINE SULFATE 4 MG/ML SYR/VIAL IV ONE (12:16)
[2023-09-01] MEDS: ONDANSETRON HCL 4 MG/2 ML VIAL IV ONE (12:16)
[2023-09-01 12:24] LABS: Alanine Aminotransferase 30 U/L (7-40); Albumin 3.9 g/dL (3.2-4.8); Alkaline Phosphatase 96 U/L (46-116); Anion Gap 8 (5-15); Aspartate Aminotransferase 24 U/L (13-40); BUN/Creatinine Ratio 16.4 (10.0-20.0); Bilirubin, Total 0.4 mg/dL (0.2-1.0); Blood Urea Nitrogen 11 mg/dL (9-23); Calcium 8.9 mg/dL (8.7-10.4); Carbon Dioxide 24 mmol/L (20-30); Chloride 101 mmol/L (98-107); Glucose 273 mg/dL (74-106); Lipase 69 U/L (12-53); Potassium 4.2 mmol/L (3.5-5.1); Sodium 133 mmol/L (136-145); Total Protein 6.7 g/dL (5.7-8.2)
[2023-09-01 13:18] LABS: Urine Bacteria FEW /hpf (None Seen); Urine Blood Negative /uL (Negative); Urine Clarity Clear (Clear); Urine Color Yellow (Yellow); Urine Mucus FEW (None Seen); Urine Protein, UAD 1+ (Negative); Urine Specific Gravity 1.038 (1.001-1.035); Urine Urobilinogen Normal (Negative); Urine WBC 2 /hpf (0 - 5)
[2023-09-01] MEDS: SODIUM CHLORIDE 0.9% 1,000 ML IV SCH (14:15)
[2023-09-01] MEDS ORDERED: DEXTROSE (50%) 50ML SYRG IV PRN (14:15)
[2023-09-01] MEDS ORDERED: DOCUSATE SOD 100 MG CAP PO PRN (14:15)
[2023-09-01 16:08] LABS: Hemoglobin 11.8 g/dL (12.2-16.2)
[2023-09-01 16:10] LABS: Hematocrit 38.4 % (36.0-46.0)
[2023-09-01] MEDS: ACCU-CHEK COMFORT CURVE STRIP VI SCH (18:08)
[2023-09-01] MEDS: InsuLIN REG 1unit/0.01ml Soln (100units/ml) SC SCH (18:11)
[2023-09-01 23:20] VITALS: PULSE 82; RESP 13; O2SAT 96
[2023-09-01] MEDS: ONDANSETRON HCL 4 MG/2 ML VIAL IV PRN (23:32)
[2023-09-01] MEDS: MORPHINE SULFATE INJ 2 MG/ml SYRG IV PRN (23:33)
[2023-09-02 06:37] LABS: Basophils % (auto) 0.6 % (0.0-2.0); Hemoglobin 11.7 g/dL (12.2-16.2); Monocytes # (auto) 0.7 10 ^3/uL (0-1.3); White Blood Cell 8.8 10^3/uL (4.4-10.8)
[2023-09-02 06:41] LABS: Basophils # (auto) 0 10 ^3/uL (0-0.2); Eosinophils # (auto) 0.3 10 ^3/uL (0-0.8); Eosinophils % (auto) 3.1 % (0.0-7.0); Hematocrit 37.6 % (36.0-46.0); Lymphocytes # (auto) 1.7 10 ^3/uL (0.4-5.4); Lymphocytes % (auto) 19.9 % (10.0-50.0); Mean Corpuscular Hemoglobin 23.2 pg (28.0-32.0); Mean Corpuscular Hgb Conc. 31.2 g/dL (32.0-36.0); Mean Corpuscular Volume 74.3 fL (80.0-100.0); Neutrophils % (auto) 68.4 % (37.0-80.0); Red Blood Cells 5.05 10^6/uL (4.0-5.20); Red Cell Distribution Width 16.2 % (11.8-14.3)
[2023-09-02 06:51] LABS: Alanine Aminotransferase 37 U/L (7-40); Alkaline Phosphatase 85 U/L (46-116); Anion Gap 9 (5-15); Aspartate Aminotransferase 40 U/L (13-40); BUN/Creatinine Ratio 15.6 (10.0-20.0); Blood Urea Nitrogen 10 mg/dL (9-23); Carbon Dioxide 25 mmol/L (20-30); Chloride 101 mmol/L (98-107); Glucose 160 mg/dL (74-106); Potassium 3.6 mmol/L (3.5-5.1); Sodium 135 mmol/L (136-145)
[2023-09-02 06:52] LABS: Bilirubin, Total 0.5 mg/dL (0.2-1.0); Total Protein 6.9 g/dL (5.7-8.2)
[2023-09-02 07:35] VITALS: PULSE 78; RESP 13; O2SAT 98
[2023-09-02] MEDS: PANTOPRAZOLE 40 MG/10 ML VIAL INJ IV SCH (09:46)
[2023-09-02] MEDS ORDERED: LIDOCAINE VISCOUS 2% 15ML UD ONE (10:47)
[2023-09-02] MEDS ORDERED: SODIUM CHLORIDE LOCK 10 ML ONE (10:47)
[2023-09-02 11:15] VITALS: BP 137/69; PULSE 80; RESP 20; TEMP 98; O2SAT 96
[2023-09-02 13:11] VITALS: BP 127/54; PULSE 75; RESP 16; TEMP 98; O2SAT 94
[2023-09-02 13:28] LABS: INR 1.01 (0.9-1.15); Prothrombin Time 10.6 sec (9.3-11.8)
[2023-09-02 16:11] LABS: Amphetamine Screen, Urine Neg (NEGATIVE)
[2023-09-02 16:12] LABS: Barbiturate Scree,Urine Neg (NEGATIVE); Benzodiazephine Screen, Urine Neg (NEGATIVE); Cannabinoid Screen, Urine Neg (NEGATIVE); Cocaine Screen, Urine Neg (NEGATIVE); Opiate Scree,Urine Neg (NEGATIVE); Phencyclidine Screen, Urine Neg (NEGATIVE)
[2023-09-02] MEDS: fentaNYL CITRATE 100 MCG/2 ML VL ONE (16:15)
[2023-09-02] MEDS: diphenhdrAMINE HCL 50 MG/1 ML VL ONE (16:15)
[2023-09-02] MEDS: MIDAZOLAM HCL 5 MG/ML-1ML VIAL ONE (16:15)
[2023-09-02] MEDS: SUCRALFATE 1 GM/10 ML ORAL SUSP PO SCH (17:11)
[2023-09-02 21:00] VITALS: BP 144/72; PULSE 86; RESP 18; TEMP 98.6; O2SAT 95
[2023-09-03 01:00] VITALS: BP 138/58; PULSE 95; RESP 16; TEMP 98.6; O2SAT 94
[2023-09-03 05:00] VITALS: BP 142/61; PULSE 80; RESP 16; TEMP 98.4; O2SAT 96
[2023-09-03 08:20] VITALS: PULSE 77; RESP 16; O2SAT 91
[2023-09-03] MEDS ORDERED: PANT40T PO (08:21)
[2023-09-03] MEDS ORDERED: SUCR1TAB PO (08:21)
[2023-09-03 09:12] VITALS: BP 159/75; PULSE 77; RESP 16; TEMP 98.2; O2SAT 91
[2023-09-03 10:05] VITALS: BP 159/75; PULSE 77; RESP 16; TEMP 98.2; O2SAT 91
== END 2023-09-03 10:31 | disposition home or self-care (01) | DRG 380 ==
LOC: ER 11:12 → OVERFLOW 14:32 → EAST 09-02 11:50 → CENTRAL 09-02 17:48
PROVIDERS: ADMIT Nurse Practitioner Family; ATTEND Family Medicine
PROC: 0DB68ZX Excision of Stomach, Via Natural or Artificial Opening Endoscopic, Diagnostic (ICD-10-PCS; 2023-09-02)
PROC: 0DB48ZX Excision of Esophagogastric Junction, Via Natural or Artificial Opening Endoscopic, Diagnostic (ICD-10-PCS; 2023-09-02)
PROC: 0DB98ZX Excision of Duodenum, Via Natural or Artificial Opening Endoscopic, Diagnostic (ICD-10-PCS; principal; 2023-09-02 16:11)
DX: K22.10 Ulcer of esophagus without bleeding (principal); K85.90 Acute pancreatitis without necrosis or infection, unspecified; F41.9 Anxiety disorder, unspecified; K29.70 Gastritis, unspecified, without bleeding; D64.9 Anemia, unspecified; E11.65 Type 2 diabetes mellitus with hyperglycemia; G89.29 Other chronic pain; J45.909 Unspecified asthma, uncomplicated; K44.9 Diaphragmatic hernia without obstruction or gangrene; K76.0 Fatty (change of) liver, not elsewhere classified; K80.20 Calculus of gallbladder without cholecystitis without obstruction; Z82.3 Family history of stroke; Z82.49 Family history of ischemic heart disease and other diseases of the circulatory system; Z83.3 Family history of diabetes mellitus; Z88.3 Allergy status to other anti-infective agents; Z88.2 Allergy status to sulfonamides
CPT/HCPCS: 36415; 71045; 74181; 76705; 80053; 80307; 80320; 81001; 81025; 82962; 83690; 84702; 85014; 85018; 85025; 85610; 85730; 86850; 86900; 86901; 87081; 96361; 96374; 96375; C9113; G0378; J1815; J2250; J2405

== ENCOUNTER 2023-11-01 02:46 | Emergency (ER) | payer MEDICARE, MEDICAID ==
[~2023-11-01] VITALS: Ht 162.6 cm; Wt 83.0 kg
[~2023-11-01 02:46] MED LIST changes: +SUCR1TAB PO
[2023-11-01] MEDS: InsuLIN REG 1unit/0.01ml Soln (100units/ml) SC ONE (03:38)
[2023-11-01 04:05] VITALS: PULSE 98; RESP 18; O2SAT 97
[2023-11-01 04:06] VITALS: BP 162/71; PULSE 96; RESP 16; O2SAT 95
== END 2023-11-01 04:45 | disposition home or self-care (01) ==
LOC: ER 02:46
DX: E11.65 Type 2 diabetes mellitus with hyperglycemia (principal); I10 Essential (primary) hypertension; J45.909 Unspecified asthma, uncomplicated; Z88.2 Allergy status to sulfonamides; Z88.6 Allergy status to analgesic agent
CPT/HCPCS: 82962; 93005; 99283; J1815; 96372

== ENCOUNTER 2023-11-05 05:49 | Emergency (ER) | payer MEDICARE, MEDICAID ==
[~2023-11-05] VITALS: Ht 162.6 cm; Wt 81.7 kg
[2023-11-05 07:28] LABS: Urine Bacteria FEW /hpf (None Seen); Urine Blood Negative /uL (Negative); Urine Budding Yeast OCCASIONAL /hpf (None Seen); Urine Clarity Clear (Clear); Urine Color Dark-Yellow (Yellow); Urine Protein, UAD TRACE (Negative); Urine Specific Gravity 1.025 (1.001-1.035); Urine Urobilinogen Normal (Negative); Urine WBC 6 /hpf (0 - 5)
[2023-11-05 07:30] LABS: Basophils # (auto) 0.1 10 ^3/uL (0-0.2); Basophils % (auto) 0.7 % (0.0-2.0); Eosinophils # (auto) 0.2 10 ^3/uL (0-0.8); Eosinophils % (auto) 3.1 % (0.0-7.0); Hematocrit 38.3 % (36.0-46.0); Hemoglobin 12.4 g/dL (12.2-16.2); Lymphocytes # (auto) 1.9 10 ^3/uL (0.4-5.4); Lymphocytes % (auto) 25.2 % (10.0-50.0); Mean Corpuscular Hemoglobin 24.3 pg (28.0-32.0); Mean Corpuscular Hgb Conc. 32.3 g/dL (32.0-36.0); Mean Corpuscular Volume 75.2 fL (80.0-100.0); Monocytes # (auto) 0.6 10 ^3/uL (0-1.3); Monocytes % (auto) 7.8 % (0.0-12.0); Neutrophils # (auto) 4.8 10 ^3/uL (1.6-8.6); Neutrophils % (auto) 63.2 % (37.0-80.0); Red Blood Cells 5.09 10^6/uL (4.0-5.20); Red Cell Distribution Width 15.9 % (11.8-14.3); White Blood Cell 7.5 10^3/uL (4.4-10.8)
[2023-11-05 07:35] VITALS: BP 158/80; PULSE 93; RESP 20; TEMP 98.9; O2SAT 100
[2023-11-05 07:43] LABS: Alanine Aminotransferase 34 U/L (7-40); Albumin 4.5 g/dL (3.2-4.8); Alkaline Phosphatase 117 U/L (46-116); Anion Gap 7 (5-15); Aspartate Aminotransferase 26 U/L (13-40); BUN/Creatinine Ratio 17.6 (10.0-20.0); Blood Urea Nitrogen 12 mg/dL (9-23); Calcium 9.9 mg/dL (8.7-10.4); Carbon Dioxide 26 mmol/L (20-30); Chloride 101 mmol/L (98-107); Glucose 304 mg/dL (74-106); Lipase 44 U/L (12-53); Potassium 3.7 mmol/L (3.5-5.1); Sodium 134 mmol/L (136-145)
[2023-11-05 07:44] LABS: Bilirubin, Total 0.4 mg/dL (0.2-1.0); Total Protein 7.5 g/dL (5.7-8.2)
[2023-11-05] MEDS ORDERED: METH-1182 PO (07:58)
[2023-11-05] MEDS: KETOROLAC TROMETH 60MG/2ML VIAL IM ONE (08:05)
[2023-11-05] MEDS: ONDANSETRON ODT 4 MG TAB PO ONE (08:05)
== END 2023-11-05 08:07 | disposition home or self-care (01) ==
LOC: ER 05:49
DX: N39.0 Urinary tract infection, site not specified (principal); F41.1 Generalized anxiety disorder; J45.909 Unspecified asthma, uncomplicated; E11.9 Type 2 diabetes mellitus without complications; I10 Essential (primary) hypertension; Z88.2 Allergy status to sulfonamides
CPT/HCPCS: 36415; 80053; 81001; 83690; 85025; 96372; 99283; J1885; Q0162

== ENCOUNTER 2023-12-29 11:20 | Emergency (ER) | payer MEDICARE, MEDICAID ==
[~2023-12-29] VITALS: Ht 162.6 cm; Wt 82.4 kg
[~2023-12-29 11:20] MED LIST changes: +METH-1182 PO
[2023-12-29] MEDS: HYDROcodone-ACET 5/325MG TAB PO ONE (13:36)
[2023-12-29] MEDS: KETOROLAC TROMETH 30 MG/ML 1ML VIAL IM ONE (13:37)
[2023-12-29] MEDS: methylPREDNISolone SOD SUCC 125 MG/2 ML VL IM ONE (13:38)
[2023-12-29 14:18] VITALS: BP 152/58; PULSE 86; RESP 16; TEMP 98.6; O2SAT 98
[2023-12-29] MEDS ORDERED: LIDO5DIS21 TOP (14:30)
== END 2023-12-29 14:33 | disposition home or self-care (01) ==
LOC: ER 11:25
DX: M54.16 Radiculopathy, lumbar region (principal); F41.9 Anxiety disorder, unspecified; J45.909 Unspecified asthma, uncomplicated; E11.9 Type 2 diabetes mellitus without complications; I10 Essential (primary) hypertension; Z79.899 Other long term (current) drug therapy; Z88.1 Allergy status to other antibiotic agents; Z88.2 Allergy status to sulfonamides
CPT/HCPCS: 96372; 99284; J1885; J2919

== ENCOUNTER 2024-01-14 14:36 | Inpatient (IN) | payer MEDICARE, MEDICAID ==
[~2024-01-14] VITALS: Ht 162.6 cm; Wt 82.9 kg
[~2024-01-14 14:36] MED LIST changes: +LIDO5DIS21 TOP
[2024-01-14 15:17] LABS: Urine Bacteria None Seen /hpf (None Seen)
[2024-01-14 15:27] LABS: Basophils # (auto) 0 10 ^3/uL (0-0.2); Basophils % (auto) 0.4 % (0.0-2.0); Eosinophils # (auto) 0 10 ^3/uL (0-0.8); Eosinophils % (auto) 0.2 % (0.0-7.0); Hematocrit 36.6 % (36.0-46.0); Hemoglobin 11.9 g/dL (12.2-16.2); Lymphocytes # (auto) 1.1 10 ^3/uL (0.4-5.4); Lymphocytes % (auto) 11.3 % (10.0-50.0); Mean Corpuscular Hemoglobin 23.4 pg (28.0-32.0); Mean Corpuscular Hgb Conc. 32.4 g/dL (32.0-36.0); Mean Corpuscular Volume 72.1 fL (80.0-100.0); Monocytes # (auto) 0.1 10 ^3/uL (0-1.3); Neutrophils # (auto) 8.2 10 ^3/uL (1.6-8.6); Neutrophils % (auto) 87.1 % (37.0-80.0); Red Blood Cells 5.08 10^6/uL (4.0-5.20); Red Cell Distribution Width 16.3 % (11.8-14.3); White Blood Cell 9.4 10^3/uL (4.4-10.8)
[2024-01-14 15:27] LABS: Urine Blood Negative /uL (Negative); Urine Clarity Clear (Clear); Urine Color Colorless (Yellow); Urine Protein, UAD TRACE (Negative); Urine Specific Gravity 1.027 (1.001-1.035); Urine Urobilinogen Normal (Negative); Urine WBC 1 /hpf (0 - 5)
[2024-01-14] MEDS: InsuLIN REG 1unit/0.01ml Soln (100units/ml) IV ONE (15:30)
[2024-01-14 15:49] LABS: Alanine Aminotransferase 43 U/L (7-40); Albumin 4.6 g/dL (3.2-4.8); Alkaline Phosphatase 123 U/L (46-116); Anion Gap 13 (5-15); Aspartate Aminotransferase 38 U/L (13-40); BUN/Creatinine Ratio 15.6 (10.0-20.0); Blood Urea Nitrogen 14 mg/dL (9-23); Calcium 10.2 mg/dL (8.7-10.4); Carbon Dioxide 23 mmol/L (20-30); Chloride 97 mmol/L (98-107); Potassium 4.5 mmol/L (3.5-5.1); Sodium 133 mmol/L (136-145)
[2024-01-14 15:50] LABS: Bilirubin, Total 0.4 mg/dL (0.2-1.0); Total Protein 7.5 g/dL (5.7-8.2)
[2024-01-14] MEDS: SODIUM CHLORIDE 0.9% 1,000 ML IV ONE (15:51)
[2024-01-14 16:09] LABS: Glucose 489 mg/dL (74-106)
[2024-01-14] MEDS ORDERED: DOCUSATE SOD 100 MG CAP PO PRN (16:45)
[2024-01-14] MEDS ORDERED: DEXTROSE (50%) 50ML SYRG IV PRN (16:45)
[2024-01-14] MEDS ORDERED: NITROGLYCERIN 0.4 MG SL TAB SL PRN (16:45)
[2024-01-14] MEDS: SODIUM CHLORIDE 0.9% 1,000 ML IV SCH (16:54)
[2024-01-14] MEDS: InsuLIN REG 1unit/0.01ml Soln (100units/ml) SC SCH ×2 (17:00→20:54)
[2024-01-14] MEDS: ACCU-CHEK COMFORT CURVE STRIP VI SCH (17:00)
[2024-01-14] MEDS: ENOXAPARIN SOD 80 MG/0.8ML SYRINGE SC SCH (18:07)
[2024-01-14 18:35] VITALS: PULSE 102; RESP 20; O2SAT 96
[2024-01-14 18:56] LABS: INR 0.97 (0.9-1.15); Prothrombin Time 10.3 sec (9.3-11.8)
[2024-01-14] MEDS: MORPHINE SULFATE INJ 2 MG/ml SYRG IV PRN (19:19)
[2024-01-14] MEDS: ONDANSETRON HCL 4 MG/2 ML VIAL IV PRN (19:22)
[2024-01-14 23:22] VITALS: PULSE 103; RESP 18; O2SAT 95
[2024-01-15 05:00] VITALS: BP 141/78; PULSE 84; RESP 19; TEMP 97.7; O2SAT 95
[2024-01-15 06:49] LABS: Alanine Aminotransferase 33 U/L (7-40); Albumin 3.8 g/dL (3.2-4.8); Alkaline Phosphatase 86 U/L (46-116); Anion Gap 7 (5-15); Aspartate Aminotransferase 20 U/L (13-40); BUN/Creatinine Ratio 19.1 (10.0-20.0); Blood Urea Nitrogen 13 mg/dL (9-23); Calcium 9.3 mg/dL (8.7-10.4); Carbon Dioxide 26 mmol/L (20-30); Chloride 104 mmol/L (98-107); Glucose 260 mg/dL (74-106); Potassium 4.4 mmol/L (3.5-5.1); Sodium 137 mmol/L (136-145)
[2024-01-15 06:50] LABS: Bilirubin, Total 0.4 mg/dL (0.2-1.0); Total Protein 6.2 g/dL (5.7-8.2)
[2024-01-15 06:55] LABS: Basophils # (auto) 0 10 ^3/uL (0-0.2); Eosinophils # (auto) 0 10 ^3/uL (0-0.8); Eosinophils % (auto) 0.1 % (0.0-7.0); Hemoglobin 9.9 g/dL (12.2-16.2); Mean Corpuscular Hgb Conc. 32.1 g/dL (32.0-36.0); Monocytes # (auto) 0.8 10 ^3/uL (0-1.3); Neutrophils # (auto) 9.2 10 ^3/uL (1.6-8.6); Red Blood Cells 4.31 10^6/uL (4.0-5.20)
[2024-01-15 06:57] LABS: Basophils % (auto) 0.4 % (0.0-2.0); Hematocrit 30.9 % (36.0-46.0); Lymphocytes # (auto) 1.9 10 ^3/uL (0.4-5.4); Lymphocytes % (auto) 16.2 % (10.0-50.0); Mean Corpuscular Volume 71.7 fL (80.0-100.0); Monocytes % (auto) 6.5 % (0.0-12.0); Neutrophils % (auto) 76.8 % (37.0-80.0)
[2024-01-15 08:00] VITALS: PULSE 76; PULSE 80; RESP 13; O2SAT 96
[2024-01-15 09:12] VITALS: BP 140/79; PULSE 76; RESP 15; TEMP 98; O2SAT 96
[2024-01-15 13:01] VITALS: BP 158/80; PULSE 83; RESP 16; TEMP 98.3; O2SAT 96
[2024-01-15 15:47] VITALS: BP 147/76; PULSE 81; RESP 15; TEMP 98.5; O2SAT 97
[2024-01-15] MEDS: INSULIN LANTUS (GLARGINE) 1 /0.01ml (100units/ml) SC ONE (15:55)
[2024-01-15] MEDS ORDERED: INSLANTI SC (16:00)
[2024-01-15] MEDS ORDERED: METF-372 PO (16:00)
[2024-01-15 16:50] VITALS: BP 132/70; PULSE 85; RESP 16; TEMP 97.9; O2SAT 96
[2024-01-18 09:16] LABS: Hepatitis B Surface Antigen Negative (Negative)
[2024-01-18 09:37] LABS: Hepatitis C Antibody Negative (Negative)
== END 2024-01-15 16:54 | disposition home or self-care (01) | DRG 639 ==
LOC: ER 14:36 → TELE 16:42 → TELE-WESTW 22:40
PROVIDERS: ADMIT Internal Medicine Pulmonary Disease; ATTEND Emergency Medicine
DX: E11.65 Type 2 diabetes mellitus with hyperglycemia (principal); G89.29 Other chronic pain; I10 Essential (primary) hypertension; J45.909 Unspecified asthma, uncomplicated; F41.9 Anxiety disorder, unspecified; K80.20 Calculus of gallbladder without cholecystitis without obstruction; M54.50 Low back pain, unspecified; Z88.2 Allergy status to sulfonamides; Z88.8 Allergy status to other drugs, medicaments and biological substances; Z79.899 Other long term (current) drug therapy; Z88.3 Allergy status to other anti-infective agents
CPT/HCPCS: 36415; 71045; 80053; 81001; 81025; 82962; 83036; 83690; 84484; 85025; 85379; 85610; 86803; 87340; 93306; 99291; G0378; J1815; J2405

== ENCOUNTER 2024-02-21 18:44 | Emergency (ER) | payer MEDICARE, MEDICAID ==
[~2024-02-21] VITALS: Ht 162.6 cm; Wt 83.9 kg
[~2024-02-21 18:44] MED LIST changes: -IBUP-1456 PO; +INSLANTI SC; -SEMA2INJ3 SC
[2024-02-21 19:56] LABS: Hemoglobin 12.3 g/dL (12.2-16.2); Monocytes # (auto) 0.8 10 ^3/uL (0-1.3)
[2024-02-21 19:57] LABS: Basophils # (auto) 0.2 10 ^3/uL (0-0.2); Basophils % (auto) 1.5 % (0.0-2.0); Eosinophils # (auto) 0.2 10 ^3/uL (0-0.8); Eosinophils % (auto) 2.1 % (0.0-7.0); Hematocrit 37.9 % (36.0-46.0); Lymphocytes # (auto) 2.8 10 ^3/uL (0.4-5.4); Lymphocytes % (auto) 23.8 % (10.0-50.0); Mean Corpuscular Hemoglobin 23.3 pg (28.0-32.0); Mean Corpuscular Hgb Conc. 32.4 g/dL (32.0-36.0); Mean Corpuscular Volume 71.9 fL (80.0-100.0); Monocytes % (auto) 7.3 % (0.0-12.0); Neutrophils # (auto) 7.6 10 ^3/uL (1.6-8.6); Neutrophils % (auto) 65.3 % (37.0-80.0); Platelet Count (auto) 430 10^3/uL (140-450); Red Blood Cells 5.27 10^6/uL (4.0-5.20); White Blood Cell 11.6 10^3/uL (4.4-10.8)
[2024-02-21 20:24] LABS: Alanine Aminotransferase 23 U/L (7-40); Albumin 4.5 g/dL (3.2-4.8); Alkaline Phosphatase 97 U/L (46-116); Anion Gap 10 (5-15); Aspartate Aminotransferase 16 U/L (13-40); BUN/Creatinine Ratio 18.1 (10.0-20.0); Blood Urea Nitrogen 17 mg/dL (9-23); Calcium 10.1 mg/dL (8.7-10.4); Carbon Dioxide 22 mmol/L (20-30); Chloride 100 mmol/L (98-107); Glucose 344 mg/dL (74-106); Lipase 62 U/L (12-53); Potassium 4.4 mmol/L (3.5-5.1); Sodium 132 mmol/L (136-145)
[2024-02-21 20:25] LABS: Bilirubin, Total 0.3 mg/dL (0.2-1.0); Total Protein 7.4 g/dL (5.7-8.2)
[2024-02-21 20:50] LABS: Urine Bacteria None Seen /hpf (None Seen)
[2024-02-21 20:58] LABS: Urine Blood Negative /uL (Negative); Urine Budding Yeast OCCASIONAL /hpf (None Seen); Urine Clarity Clear (Clear); Urine Color Light-Yellow (Yellow); Urine Protein, UAD Negative (Negative); Urine Specific Gravity 1.033 (1.001-1.035); Urine Urobilinogen Normal (Negative); Urine WBC 3 /hpf (0 - 5); Urine pH 5.5 (5.0-9.0)
[2024-02-21 22:00] VITALS: BP 142/79; PULSE 98; RESP 17; TEMP 98.4; O2SAT 100
[2024-02-21] MEDS ORDERED: CIPR-173 PO (22:06)
[2024-02-21] MEDS: cefTRIAXone SOD 1,000 MG VL IM ONE (22:37)
[2024-02-21] MEDS: KETOROLAC TROMETH 30 MG/ML 1ML VIAL IM ONE (22:38)
[2024-02-22] MEDS ORDERED: VALA1TAB PO (19:11)
== END 2024-02-21 22:10 | disposition home or self-care (01) ==
LOC: ER 18:44
DX: R68.89 Other general symptoms and signs (principal); R10.2 Pelvic and perineal pain; I10 Essential (primary) hypertension; E11.9 Type 2 diabetes mellitus without complications; F41.9 Anxiety disorder, unspecified; J45.909 Unspecified asthma, uncomplicated; Z98.890 Other specified postprocedural states; Z88.8 Allergy status to other drugs, medicaments and biological substances; Z79.899 Other long term (current) drug therapy
CPT/HCPCS: 36415; 74176; 80053; 81001; 81025; 83690; 84702; 85025; 96372; 99285; J0696; J1885

== ENCOUNTER 2024-02-26 08:27 | Emergency (ER) | payer MEDICARE, MEDICAID ==
[~2024-02-26] VITALS: Ht 162.6 cm; Wt 84.0 kg
[~2024-02-26 08:27] MED LIST changes: +CIPR-173 PO; +VALA1TAB PO
[2024-02-26 09:51] LABS: Urine Bacteria None Seen /hpf (None Seen)
[2024-02-26 09:54] LABS: Basophils # (auto) 0.1 10 ^3/uL (0-0.2); Eosinophils # (auto) 0.2 10 ^3/uL (0-0.8); Mean Corpuscular Volume 71.4 fL (80.0-100.0)
[2024-02-26 09:59] LABS: Basophils % (auto) 1.1 % (0.0-2.0); Eosinophils % (auto) 2.4 % (0.0-7.0); Hematocrit 35.2 % (36.0-46.0); Hemoglobin 11.4 g/dL (12.2-16.2); Lymphocytes # (auto) 1.8 10 ^3/uL (0.4-5.4); Lymphocytes % (auto) 18.4 % (10.0-50.0); Mean Corpuscular Hemoglobin 23.1 pg (28.0-32.0); Mean Corpuscular Hgb Conc. 32.3 g/dL (32.0-36.0); Monocytes # (auto) 0.5 10 ^3/uL (0-1.3); Neutrophils # (auto) 7.1 10 ^3/uL (1.6-8.6); Neutrophils % (auto) 73.1 % (37.0-80.0); Platelet Count (auto) 382 10^3/uL (140-450); Red Blood Cells 4.93 10^6/uL (4.0-5.20); Red Cell Distribution Width 17.5 % (11.8-14.3); White Blood Cell 9.8 10^3/uL (4.4-10.8)
[2024-02-26 10:06] LABS: Alanine Aminotransferase 27 U/L (7-40); Alkaline Phosphatase 87 U/L (46-116); Anion Gap 7 (5-15); Aspartate Aminotransferase 16 U/L (13-40); BUN/Creatinine Ratio 17.3 (10.0-20.0); Bilirubin, Total 0.3 mg/dL (0.2-1.0); Blood Urea Nitrogen 14 mg/dL (9-23); Calcium 9.5 mg/dL (8.7-10.4); Carbon Dioxide 23 mmol/L (20-30); Chloride 102 mmol/L (98-107); Glucose 320 mg/dL (74-106); Sodium 132 mmol/L (136-145); Total Protein 6.6 g/dL (5.7-8.2)
[2024-02-26 10:14] LABS: Urine Blood Negative /uL (Negative); Urine Clarity Clear (Clear); Urine Color Light-Yellow (Yellow); Urine Protein, UAD Negative (Negative); Urine Specific Gravity 1.025 (1.001-1.035); Urine Urobilinogen Normal (Negative); Urine WBC 2 /hpf (0 - 5)
[2024-02-26 11:18] VITALS: BP 139/86; PULSE 92; RESP 15; TEMP 98; O2SAT 98
[2024-02-26] MEDS: IBUPROFEN 600 MG TAB PO ONE (11:18)
[2024-02-26] MEDS ORDERED: CEPH250C PO (11:30)
== END 2024-02-26 11:52 | disposition home or self-care (01) ==
LOC: ER 08:27
DX: N39.0 Urinary tract infection, site not specified (principal); R10.2 Pelvic and perineal pain; R73.9 Hyperglycemia, unspecified; J45.909 Unspecified asthma, uncomplicated; I10 Essential (primary) hypertension; Z88.2 Allergy status to sulfonamides; Z88.6 Allergy status to analgesic agent
CPT/HCPCS: 36415; 80053; 81001; 84702; 85025; 87086

== ENCOUNTER 2024-03-12 10:24 | Emergency (ER) | payer MEDICARE, MEDICAID ==
[~2024-03-12] VITALS: Ht 162.6 cm; Wt 83.7 kg
[~2024-03-12 10:24] MED LIST changes: +CEPH250C PO
[2024-03-12 10:54] LABS: Urine Bacteria None Seen /hpf (None Seen); Urine WBC None Seen /hpf (0 - 5)
[2024-03-12 11:05] LABS: Urine Blood Negative /uL (Negative); Urine Clarity Clear (Clear); Urine Color Light-Yellow (Yellow); Urine Protein, UAD Negative (Negative); Urine Specific Gravity 1.034 (1.001-1.035); Urine Urobilinogen Normal (Negative); Urine pH 5.5 (5.0-9.0)
[2024-03-12] MEDS ORDERED: GABA-1250 PO (11:36)
[2024-03-12] MEDS ORDERED: AMIT25TA20 PO (11:36)
[2024-03-12 11:40] VITALS: BP 162/74; PULSE 94; RESP 16; TEMP 98.4; O2SAT 96
[2024-03-12] MEDS: HYDROcodone-ACET 10/325MG TAB PO ONE (11:48)
== END 2024-03-12 11:58 | disposition home or self-care (01) ==
LOC: ER 10:24
DX: B02.29 Other postherpetic nervous system involvement (principal); J45.909 Unspecified asthma, uncomplicated; I10 Essential (primary) hypertension; E11.9 Type 2 diabetes mellitus without complications; Z88.1 Allergy status to other antibiotic agents; Z88.2 Allergy status to sulfonamides; Z79.899 Other long term (current) drug therapy; Z98.890 Other specified postprocedural states; Z79.84 Long term (current) use of oral hypoglycemic drugs; Z79.624 Long term (current) use of inhibitors of nucleotide synthesis; Z79.51 Long term (current) use of inhaled steroids
CPT/HCPCS: 81001

== ENCOUNTER 2024-07-16 05:44 | Emergency (ER) | payer MEDICARE, MEDICAID ==
[~2024-07-16] VITALS: Ht 162.6 cm; Wt 81.9 kg
[~2024-07-16 05:44] MED LIST changes: +AMIT25TA20 PO; +GABA-1250 PO
--- NOTE | 2024-07-16 07:15 | DVH ---
EXAM: XY CHEST TWO VIEWS ROUTINE HISTORY: COUGH COMPARISON: Chest x-ray dated 09/02/2023. TECHNIQUE: Frontal and lateral views of the chest were performed. FINDINGS: No pneumothorax, pulmonary edema, pleural effusions, or new infiltrates. There is mild scarring in th e left lung base. There is a small retrocardiac hiatal hernia. The heart is not enlarged. No fractur es are identified about the bony thorax. IMPRESSION: 1. No acute intrathoracic process. 2. Small hiatal hernia.
[2024-07-16 07:25] VITALS: BP 181/90; PULSE 107; TEMP 98.1
--- NOTE | 2024-07-16 07:38 | ED.PDOC ---
Eye-HPI HPI Comments A 49 YEAR OLD FEMALE PRESENTS TO THE ED WITH COMPLAINT OF FLU-LIKE SYMPTOMS. PATIENT STATES SHE HAS BEEN EXPERIENCING A SORE THROAT, RIGHT EAR PAIN, SINUS PRESSURE, NASAL CONGESTION, AND A COUGH FOR THE PAST 2 WEEKS. PATIENT NOTES SHE WENT TO [facility] 3 DAYS AGO FOR THIS COMPLAINT WHERE SHE WAS PRESCRIBED AZITHROMYCIN AND HAS ONLY TAKEN 1 DOSE OF THIS MEDICATION, BUT NOTES THERE HAS BEEN NO IMPROVEMENT IN HER SYMPTOMS. PATIENT DENIES FEVER, CHILLS, SHORTNESS OF BREATH, CHEST PAIN, ABDOMINAL PAIN, NAUSEA, VOMITING, HEADACHE, OR OTHER COMPLAINTS. NO OTHER SYMPTOMS OR MODIFYING FACTORS AT THIS TIME. PATIENT IS ALERT, ORIENTED X 4, AND HAS STEADY GAIT. Chief Complaint: Flu like Time Seen by MD: 06:21 Primary Care Provider: ASAD CERVANTES Reviewed Notes: Nurses Notes, Medications, Allergies Allergies: Coded Allergies: Atorvastatin (Unverified Allergy, Unknown, 03/09/23) Patient states that her mouth and throat swell, and she gets generalized itching and hives Sulfamethoxazole w/Trimethoprim (Verified Allergy, Unknown, 05/24/20) Home Meds Active Scripts Benzonatate (Benzonatate) 200 Mg Cap, 1 CAP PO TIDP, #30 CAP Prov:LEDY VERGARA 07/16/24 Methylprednisolone (Medrol Dosepak) 4 Mg Reddy, 4 MG PO UD, #21 TAB UAD Prov:LEDY VERGARA 07/16/24 Amitriptyline Hcl (Amitriptyline Hcl) 25 Mg Tab, 1 TAB PO QHSP PRN, #20 TAB Prov:LEDY VERGARA 03/12/24 Gabapentin (Gabapentin) 300 Mg Cap, 300 MG PO BID, #30 CAP Prov:LEDY VERGARA 03/12/24 Cephalexin (KEFLEX CAPSULE) 250 Mg Cp, 500 MG PO BID for 10 Days, #40 TAB Prov:ELLE ANG MD 02/26/24 Valacyclovir Hcl (Valtrex) 1 Gm Tab, 1 TAB PO TID for 14 Days, #42 TAB Prov:RACHEL TORRES 02/22/24 Ciprofloxacin Hcl (Cipro) 500 Mg Tab, 1 TAB PO BID for 5 Days, #10 TAB Prov:RACHEL TORRESP 02/21/24 Insulin Glargine (Lantus) 100 Unit/Ml Inj, 25 UNIT SC QAM for 30 Days, #1 INJ 2 Refills Prov:BALJINDER GUZMÁN RESIDENT 01/15/24 Metformin Hydrochloride (Metformin Hcl) 1,000 Mg Tab, 1 TAB PO BID for 30 Days, #60 TAB Prov:BALJINDER GUZMÁN RESIDENT 01/15/24 Lidocaine (LIDODERM 5% TOPICAL PATCH) 1 Patch Ph, 1 PATCH TOP DAILY for 30 Days, #30 PATCH 0 Refills Prov:ZAINAB QURESHI COMPENSATION EXPERT 12/29/23 Methocarbamol (Methocarbamol) 750 Mg Tab, 750 MG PO BID, #20 TAB Prov:LEDY VERGARA PA 11/05/23 Sucralfate (Sucralfate) 1 Gm Tab, 1 GM PO QID, #120 TAB Prov:NUNU SHAVER MD 09/03/23 Pantoprazole Sodium Sesquihydr (Pantoprazole Sodium) 40 Mg Tab, 40 MG PO BID, #60 TAB Prov:NUNU SHAVER MD 09/03/23 Pantoprazole Sodium Sesquihydr (Pantoprazole Sodium) 40 Mg Tab, 40 MG PO DAILY, #30 TAB Prov:NUNU SHAVER MD 03/11/23 Reported Medications Cholecalciferol (VITAMIN D3) 2,000 Unit Tab, 1 TAB PO DAILY, % 03/10/23 Dexlansoprazole (Dexlansoprazole) 30 Mg Cap, 1 TAB PO DAILY 03/10/23 Beclomethasone Dipropionate (Qvar Redihaler) 40 Mcg/Act Aer, 2 PUFF INH DAILY 03/10/23 Oxycodone W/ Acetaminophen (Percocet 5/325MG) 1 Tab Tb, 1 TAB PO TID PRN for PAIN SCALE 7 THRU 10, % 03/10/23 Ondansetron HCl (Ondansetron Hydrochloride) 4 Mg Tab, 1 TAB PO DAILY 03/10/23 Docusate Sodium (Docusate Sodium) 100 Mg Cap, 1 CAP PO DAILY 03/10/23 Information Source: Patient Mode of Arrival: Ambulatory Timing: Weeks Duration: Since onset Prehospital treatment: None Quality: Pain, Red Lids: Normal Conjunctiva: Normal Cornea: Normal Pupils: Normal EOM: Normal Fundus: Normal Slit lamp exam: Normal Anterior chamber: Normal Mouth Location: Pharynx Mouth: Normal ENT Ear Exam: Normal, Red, Normal, Normal Nose: Normal Sinuses: Normal Oropharynx: Tonsillar hypertrophy, Red Onset: Spontaneous Throat Exposed to: None History of: None Last Tetanus: Unknown Modifying factors: Nothing Associated signs and symptoms: Nasal Symptoms, Sore Throat, Ear Pain Past Medical History PAST MEDICAL HISTORY: Anxiety, Asthma, DM, Gallstones, HTN Surgical History: Hernia Repair CORSET MAKER History: No Pertinent CORSET MAKER History Family History Family History: Reviewed,noncontributory to illness, No family hx ofKidney mary, No family hx of Liver mary, Family hx of DM, Family hx of Cancer Social History Smoker: Non-Smoker Alcohol: Denies ETOH Use Drugs: Denies Drug Use Lives In: Home Constitutional: denies: chills, diaphoresis, fatigue, fever, malaise, sweats, weakness, others EENTM: reports: ear pain, nose congestion, throat pain, throat swelling; denies: blurred vision, double vision, ear bleeding, ear discharge, ear drainage, ear ringing, eye pain, eye redness, hearing loss, mouth pain, mouth swelling, nasal discharge, nose bleeding, nose pain, photophobia, tearing, voice changes, others Respiratory: reports: cough; denies: hemoptysis, orthopnea, SOB at rest, shortness of breath, SOB with excertion, stridor, wheezing, others Cardiovascular: denies: chest pain, dizzy spells, diaphoresis, Dyspnea on exertion, edema, irregular heart beat, left arm pain, lightheadedness, palpitations, PND, syncope, others Gastrointestinal: denies: abdomen distended, abdominal pain, blood streaked bowels, constipated, diarrhea, dysphagia, difficulty swallowing, hematemesis, melena, nausea, poor appetite, poor fluid intake, rectal bleeding, rectal pain, vomiting, others Genitourinary: denies: abnormal vagina bleeding, burning, dyspareunia, dysuria, flank pain, frequency, hematuria, incontinence, pain, , vagina discharge, urgency, others Neurological: denies: dizziness, fainting, headache, left sided numbness, left sided weakness, numbness, paresthesia, pre-existing deficit, right sided numbness, right sided weakness, seizure, speech problems, tingling, tremors, weakness, others Musculoskeletal: denies: back pain, gout, joint pain, joint swelling, muscle pain, muscle stiffness, neck pain, others Integumetry: denies: bruises, change in color, change in hair/nails, dryness, laceration, lesions, lumps, rash, wounds, others Allergic/Immunocompromised: denies: Difficulty Healing, Frequent Infections, Hives, Itching, others Hematologic/Lymphatic: denies: anemia, blood clots, easy bleeding, easy bruising, swollen glands, others Endocrine: denies: excessive hunger, excessive sweating, excessive thirst, excessive urination, flushing, intolerance to cold, intolerance to heat, unexplained weight gain, unexplained weight loss, others Psychiatric: denies: anxiety, bipolar disorder, depression, hopeless, panic disorder, schizophrenia, sleepless, suicidal, others All Other Systems: Reviewed and Negative Physical Exam General Appearance: No Apparent Distress, Normal HEENT: PERRL/EOMI, Pharyngeal Erythema (TONSILLAR SWELLING, NO EXUDATES. ), Sinuses (TENDERNESS MAXILLARY SINUSES WITH POST NASAL DRIP. ), TM Abnormal (R) (DULL AND MILD REDNESS OF TM, NO DRAINAGE AND BLOOD CLOTS. ) Neck: Full Range of Motion, Non-Tender, Normal, Normal Inspection Respiratory: Chest Non-Tender, Decreased Breath Sounds, Expiration, No Accessory Muscle Use, No Respiratory Distress, Rhonchi, Wheezing (MILD ) Cardiovascular: No Edema, No JVD, No Murmur, No Gallop, Normal Peripheral Pulses, Regular Rate/Rhythm Breast Exam: Deferred Gastrointestinal: No Organomegaly, Non Tender, No Pulsatile Mass, Normal Bowel Sounds, Soft Genitalia: Deferred Pelvic: Deferred Rectal: Deferred Extremities: No calf tenderness, Normal capillary refill, Normal inspection, Normal range of motion, Non-tender, No pedal edema Musculoskeletal : Apperance: Normal Neurologic: Alert, tallow maker II-XII nml as Tested, No Motor Deficits, Normal Affect, Normal Mood, No Sensory Deficits Cerebellar Function: Normal Reflexes: Normal Skin: Dry, Normal Color, Warm Peripheral Pulses: 2+ carotid (R), 2+ carotid (L) Lymphatic: No Adenopathy Was a procedure done? Was a procedure done?: No EENT DIFF Eye: N/A Ear: Cerumen Impaction, Otitis Externa, Otitis Media, Pharyngitis, Sinusitis Nose: N/A Mouth: N/A Sore Throat: Pharyngitis, Streptococcal, Viral Pharyngitis, URI X-Ray, Labs, Meds, VS Vital Signs Date Time Temp Pulse Resp B/P (MAP) Pulse Ox O2 Delivery O2 Flow Rate FiO2 07/16/24 07:40 20 97 Room Air* 0 21 07/16/24 07:25 98.1 107 20 181/90 (120) 97 98.1 07/16/24 06:21 98.1 107 20 181/90 (120) 97 Current Medications Medications (Trade) Dose Ordered Sig/Emilia Route Start Time Stop Time Status Last Admin Ceftriaxone Sodium (Rocephin) 1,000 mg ONCE ONCE IM 07/16/24 07:45 07/16/24 07:46 DC 07/16/24 07:41 Methylprednisolone Sodium Succinate (Solu Medrol) 125 mg ONCE ONCE IM 07/16/24 07:45 07/16/24 07:46 DC 07/16/24 07:41 EXAM: XY CHEST TWO VIEWS ROUTINE HISTORY: COUGH COMPARISON: Chest x-ray dated 09/02/2023. TECHNIQUE: Frontal and lateral views of the chest were performed. FINDINGS: No pneumothorax, pulmonary edema, pleural effusions, or new infiltrates. There is mild scarring in the left lung base. There is a small retrocardiac hiatal hernia. The heart is not enlarged. No fractures are identified about the bony thorax. IMPRESSION: 1. No acute intrathoracic process. 2. Small hiatal hernia. ATED BY: SHANE BUCKLEY MD DICTATED DATE/TIME: 07/16/24711 SIGNED BY: SHANE BUCKLEY MD SIGNED DATE/TIME: 07/16/24711 CC: X-Ray, Labs, Meds, VS Comment EXTERNAL MEDICAL RECORDS REVIEWED: [NONE] INDEPENDENT HISTORIANS: [NONE] SOCIAL DETERMINANTS OF HEALTH: [NONE] LABS ORDERED: NONE REVIEWED AND INTERPRETED RESULTS: NONE IMAGING ORDERED: XR CHEST TREATMENTS ORDERED: ROCEPHIN 1 G IM, SOLU-MEDROL 125 MG IM, DUONEB 3 MG INHL PROCEDURES PERFORMED: NONE CRITICAL CARE TIME: NONE I HAVE DISCUSSED THE PATIENT WITH THE ATTENDING PHYSICIAN DR. LEVINE AND HE AGREES WITH THE PATIENT'S PLAN OF CARE AND DISPOSITION. BASED ON HISTORY OF PRESENT ILLNESS, AND PHYSICAL EXAM, PATIENT WILL BE DISCHARGED HOME. SHARED DECISION MAKING: PATIENT INSTRUCTED TO FOLLOW UP WITH PRIMARY CARE PROVIDER IN 1-2 DAYS FOR RE-EVALUATION OF SYMPTOMS. PATIENT VERBALIZES UNDERSTANDING TO RETURN TO ED FOR NEW OR WORSENING SYMPTOMS OR IF FOLLOW UP WITH PCP CANNOT BE OBTAINED. PATIENT FEELS COMFORTABLE GOING HOME AT THIS TIME. ALL QUESTIONS ADDRESSED AT TIME OF DISCHARGE. Images Reviewed?: Images reviewed and evaluated by me Time of 1ST Reevaluation: 08:10 Reevaluation 1ST: Improved Patient Education/Counseling: Diagnosis, Treatment, Need For Follow Up Family Education/Counseling: Diagnosis, Treatment, Need For Follow Up Medical Screening: No EMC Exist At This Time Departure 1 Departure Time of Disposition: 08:10 Impression: Primary Impression: Acute sinusitis Qualified Codes: J01.00 - Acute maxillary sinusitis, unspecified Additional Impressions: Acute tonsillitis Qualified Codes: J03.90 - Acute tonsillitis, unspecified Acute asthmatic bronchitis Disposition: HOME / SELF CARE / HOMELESS Condition: Stable Additional Instructions: FOLLOW-UP WITH PCP IN 1 TO 2 DAYS. TAKE MEDICATIONS PRESCRIBED. RETURN TO ED FOR ANY NEW OR WORSENING SYMPTOMS. e-Prescriptions Benzonatate (Benzonatate) 200 Mg Cap 1 CAP PO TIDP, #30 CAP Prov: LDEY VERGARA 07/16/24 Methylprednisolone (Medrol Dosepak) 4 Mg Reddy 4 MG PO UD, #21 TAB UAD Prov: LEDY VERGARA 07/16/24 Discharged With: Self Critical Care Note Critical Care Time?: No Stability Stability form required: No Heart Score Heart Score: Heart Score Response (Comments) Value History N/A 0 EKG N/A 0 Age N/A 0 Risk Factors N/A 0 Troponin N/A 0 Total 0 I personally scribed for LEDY VERGARA ([email or web address]) on 07/16/24 at 07:38. Electronically submitted by Alonzo Zamorano ([email or web address]). I personally scribed for LEDY VERGARA ([email or web address]) on 07/16/24 at 07:44. Electronically submitted by Alonzo Zamorano ([email or web address]). LEDY VERGARA Jul 16, 2024 07:38
[2024-07-16 07:40] VITALS: RESP 20; O2SAT 97
[2024-07-16] MEDS: cefTRIAXone SOD 1,000 MG VL IM ONE (07:41)
[2024-07-16] MEDS: methylPREDNISolone SOD SUCC 125 MG/2 ML VL IM ONE (07:41)
[2024-07-16] MEDS: IPRATROPIUM BROM 0.5 MG/2.5ML INH SOL NEB ONE (07:54)
[2024-07-16] MEDS: ALBUTEROL SULF 2.5 MG/0.5ML(0.5%) NEB SOLN NEB ONE (07:55)
[2024-07-16] MEDS ORDERED: METH4PAK PO (08:08)
[2024-07-16] MEDS ORDERED: BENZ200C64 PO (08:08)
== END 2024-07-16 08:12 | disposition home or self-care (01) ==
LOC: ER 05:44
DX: J45.909 Unspecified asthma, uncomplicated (principal); J01.90 Acute sinusitis, unspecified; J03.90 Acute tonsillitis, unspecified; I10 Essential (primary) hypertension; E11.9 Type 2 diabetes mellitus without complications; F41.9 Anxiety disorder, unspecified; Z98.890 Other specified postprocedural states; Z88.8 Allergy status to other drugs, medicaments and biological substances; Z79.51 Long term (current) use of inhaled steroids; Z79.624 Long term (current) use of inhibitors of nucleotide synthesis; Z79.84 Long term (current) use of oral hypoglycemic drugs; Z79.899 Other long term (current) drug therapy
CPT/HCPCS: 71046; 94640; 96372; 99284; J0696; J2919

== ENCOUNTER 2024-10-27 10:25 | Emergency (ER) | payer MEDICARE, MEDICAID ==
[~2024-10-27] VITALS: Ht 162.6 cm; Wt 83.2 kg
[~2024-10-27 10:25] MED LIST changes: +BENZ200C64 PO; +METH4PAK PO
[2024-10-27 10:50] LABS: Chloride 100 mmol/L (98-107); Potassium 4.7 mmol/L (3.5-5.1)
[2024-10-27 10:51] LABS: Anion Gap 9 (5-15); Carbon Dioxide 27 mmol/L (20-31)
[2024-10-27 10:52] LABS: Calcium 9.8 mg/dL (8.7-10.4)
[2024-10-27 10:53] LABS: Basophils # (auto) 0.1 10 ^3/uL (0-0.2); Basophils % (auto) 0.9 % (0.0-2.0); Eosinophils # (auto) 0.2 10 ^3/uL (0-0.8); Eosinophils % (auto) 2.9 % (0.0-7.0); Hemoglobin 14.2 g/dL (12.2-16.2); Lymphocytes # (auto) 2.6 10 ^3/uL (0.4-5.4); Lymphocytes % (auto) 32.9 % (10.0-50.0); Mean Corpuscular Hemoglobin 26.8 pg (28.0-32.0); Mean Corpuscular Volume 81.2 fL (80.0-100.0); Monocytes # (auto) 0.6 10 ^3/uL (0-1.3); Monocytes % (auto) 7.5 % (0.0-12.0); Neutrophils # (auto) 4.4 10 ^3/uL (1.6-8.6); Neutrophils % (auto) 55.8 % (37.0-80.0); Nucleated Red Blood Cells % 0.1 %; Platelet Count (auto) 291 10^3/uL (140-450); Red Cell Distribution Width 16.1 % (11.8-14.3); Sodium 136 mmol/L (136-145)
[2024-10-27 10:57] LABS: Blood Urea Nitrogen 12 mg/dL (9-23); Glucose 340 mg/dL (74-106)
[2024-10-27] MEDS: DONNATAL 5ml ORAL Elix (BELLADONNA ALK-PHENOBARB) PO ONE (11:00)
[2024-10-27 11:11] LABS: Urine Bacteria None Seen /hpf (None Seen)
[2024-10-27 11:14] LABS: Lipase 59 U/L (12-53)
[2024-10-27 11:17] LABS: Urine Blood Negative /uL (Negative); Urine Clarity Clear (Clear); Urine Color Light-Yellow (Yellow); Urine Protein, UAD 1+ (Negative); Urine Specific Gravity 1.037 (1.001-1.035); Urine Squamous Epithelial Cell FEW /hpf (<5); Urine Urobilinogen Normal (Negative); Urine WBC 1 /HPF (0-5)
[2024-10-27] MEDS: MAALOX PLUS or MAALOX 30 ML PO ONE (11:41)
[2024-10-27] MEDS: LIDOCAINE VISCOUS 2% 15ML UD PO ONE (11:41)
[2024-10-27] MEDS: KETOROLAC TROMETH 60MG/2ML VIAL IM ONE (11:42)
--- NOTE | 2024-10-27 11:51 | DVH ---
EXAM: XY CHEST PORTABLE HISTORY: cp COMPARISON: XY CHEST XRAY 1 VIEW on DOS: 01/14/24, XY CHEST XRAY 1 VIEW on DOS: 09/02/23, XY CHEST SANDRA BLE on DOS: 01/23/23, CHEST XRAY 1 VIEW on DOS: 06/27/21, CHEST PORTABLE on DOS: 05/29/20 TECHNIQUE: Portable upright AP view of the chest was performed. FINDINGS: No pneumothorax, consolidative infiltrates, or pulmonary edema. There is mild left lung base scarring . The heart is borderline enlarged. There is prominence of the left pericardial fat pad. IMPRESSION: No acute intrathoracic process.
--- NOTE | 2024-10-27 12:05 | ED.PDOC ---
History of Present Illness HPI Comments 49y F who presents to the ED for chief complaint of L breast pain. Pt states she has been having L sided breast pain for the past 1 month. Pt states she has noted swelling,itching and pain noted by the L side of her breast radiating to the L axilla and L shoulder and came to the ED for further evaluation. Pt states she went to PCP and scheduled mammogram but states it is coming in the next 1 month. Pt has been taking ibuprofen for the pain but states it has not been helping. Pt otherwise states she has also been having epigastric abdominal pain with noted history of pancreatitis and gallstones. Pt states she was on ozempic but states due to her symptoms, she was switched to jiardance. states she otherwise has history of shingles but states it on her torso and back. Pt otherwise denies chest pain, shortness of breath, fever, cough, chills, dysuria, headache or dizziness. Pt has noted stable vitals in the ED, with temp of 98.6 F, rr 18, heart rate 91, BP of 127/83 and 02 sat of 96% on room air. Pt otherwise denies any other symptoms at this time. Chief Complaint: Chest Pain Time Seen by MD: 12:01 Primary Care Provider: NORA Reviewed Notes: Medications, Allergies Allergies: Coded Allergies: Atorvastatin (Unverified Allergy, Unknown, 03/09/23) Patient states that her mouth and throat swell, and she gets generalized itching and hives Sulfamethoxazole w/Trimethoprim (Verified Allergy, Unknown, 05/24/20) Home Meds Active Scripts Benzonatate (Benzonatate) 200 Mg Cap, 1 CAP PO TIDP, #30 CAP Prov:LEDY VERGARA 07/16/24 Methylprednisolone (Medrol Dosepak) 4 Mg Reddy, 4 MG PO UD, #21 TAB UAD Prov:LEDY VERGARA 07/16/24 Amitriptyline Hcl (Amitriptyline Hcl) 25 Mg Tab, 1 TAB PO QHSP PRN, #20 TAB Prov:LEDY VERGARA 03/12/24 Gabapentin (Gabapentin) 300 Mg Cap, 300 MG PO BID, #30 CAP Prov:LEDY VERGARA 03/12/24 Cephalexin (KEFLEX CAPSULE) 250 Mg Cp, 500 MG PO BID for 10 Days, #40 TAB Prov:ELLE ANG MD 02/26/24 Valacyclovir Hcl (Valtrex) 1 Gm Tab, 1 TAB PO TID for 14 Days, #42 TAB Prov:RACHEL TORRES 02/22/24 Ciprofloxacin Hcl (Cipro) 500 Mg Tab, 1 TAB PO BID for 5 Days, #10 TAB Prov:RACHEL TORRES 02/21/24 Insulin Glargine (Lantus) 100 Unit/Ml Inj, 25 UNIT SC QAM for 30 Days, #1 INJ 2 Refills Prov:BALJINDER GUZMÁN RESIDENT 01/15/24 Metformin Hydrochloride (Metformin Hcl) 1,000 Mg Tab, 1 TAB PO BID for 30 Days, #60 TAB Prov:BALJINDER GUZMÁN RESIDENT 01/15/24 Lidocaine (LIDODERM 5% TOPICAL PATCH) 1 Patch Ph, 1 PATCH TOP DAILY for 30 Days, #30 PATCH 0 Refills Prov:ZAINAB QURESHI NUCLEAR PHYSICS TEACHER 12/29/23 Methocarbamol (Methocarbamol) 750 Mg Tab, 750 MG PO BID, #20 TAB Prov:LEDY VERGARA PA 11/05/23 Sucralfate (Sucralfate) 1 Gm Tab, 1 GM PO QID, #120 TAB Prov:NUNU SHAVER MD 09/03/23 Pantoprazole Sodium Sesquihydr (Pantoprazole Sodium) 40 Mg Tab, 40 MG PO BID, #60 TAB Prov:NUNU SHAVER MD 09/03/23 Pantoprazole Sodium Sesquihydr (Pantoprazole Sodium) 40 Mg Tab, 40 MG PO DAILY, #30 TAB Prov:NUNU SHAVER MD 03/11/23 Reported Medications Cholecalciferol (VITAMIN D3) 2,000 Unit Tab, 1 TAB PO DAILY, % 03/10/23 Dexlansoprazole (Dexlansoprazole) 30 Mg Cap, 1 TAB PO DAILY 03/10/23 Beclomethasone Dipropionate (Qvar Redihaler) 40 Mcg/Act Aer, 2 PUFF INH DAILY 03/10/23 Oxycodone W/ Acetaminophen (Percocet 5/325MG) 1 Tab Tb, 1 TAB PO TID PRN for PAIN SCALE 7 THRU 10, % 03/10/23 Ondansetron HCl (Ondansetron Hydrochloride) 4 Mg Tab, 1 TAB PO DAILY 03/10/23 Docusate Sodium (Docusate Sodium) 100 Mg Cap, 1 CAP PO DAILY 03/10/23 Information Source: Patient Mode of Arrival: Ambulatory Past Medical History PAST MEDICAL HISTORY: Anxiety, Asthma, DM, Gallstones, HTN Past Medical History (Other): Pancreatitis Surgical History: Hernia Repair RECORDING ARTIST History: No Pertinent RECORDING ARTIST History Family History Family History: Reviewed,noncontributory to illness, No family hx ofKidney mary, No family hx of Liver mary, Family hx of DM, Family hx of Cancer Social History Smoker: Non-Smoker Alcohol: Denies ETOH Use Drugs: Denies Drug Use Lives In: Home Constitutional: denies: chills, diaphoresis, fatigue, fever, malaise, sweats, weakness, others EENTM: denies: blurred vision, double vision, ear bleeding, ear discharge, ear drainage, ear pain, ear ringing, eye pain, eye redness, hearing loss, mouth pain, mouth swelling, nasal discharge, nose bleeding, nose congestion, nose pain, photophobia, tearing, throat pain, throat swelling, voice changes, others Respiratory: denies: cough, hemoptysis, orthopnea, SOB at rest, shortness of breath, SOB with excertion, stridor, wheezing, others Cardiovascular: denies: chest pain, dizzy spells, diaphoresis, Dyspnea on exertion, edema, irregular heart beat, left arm pain, lightheadedness, palpitations, PND, syncope, others Gastrointestinal: denies: abdomen distended, abdominal pain, blood streaked bowels, constipated, diarrhea, dysphagia, difficulty swallowing, hematemesis, melena, nausea, poor appetite, poor fluid intake, rectal bleeding, rectal pain, vomiting, others Genitourinary: denies: abnormal vagina bleeding, burning, dyspareunia, dysuria, flank pain, frequency, hematuria, incontinence, pain, , vagina discharge, urgency, others Neurological: denies: dizziness, fainting, headache, left sided numbness, left sided weakness, numbness, paresthesia, pre-existing deficit, right sided numbness, right sided weakness, seizure, speech problems, tingling, tremors, weakness, others Musculoskeletal: denies: back pain, gout, joint pain, joint swelling, muscle pain, muscle stiffness, neck pain, others Integumetry: reports: others (L sided breast pain ); denies: bruises, change in color, change in hair/nails, dryness, laceration, lesions, lumps, rash, wounds Allergic/Immunocompromised: denies: Difficulty Healing, Frequent Infections, Hives, Itching, others Hematologic/Lymphatic: denies: anemia, blood clots, easy bleeding, easy bruising, swollen glands, others Endocrine: denies: excessive hunger, excessive sweating, excessive thirst, excessive urination, flushing, intolerance to cold, intolerance to heat, unexplained weight gain, unexplained weight loss, others Psychiatric: denies: anxiety, bipolar disorder, depression, hopeless, panic disorder, schizophrenia, sleepless, suicidal, others All Other Systems: Reviewed and Negative Physical Exam General Appearance: No Apparent Distress, Obese HEENT: Other (Pupils and face symmetric. Moist mucous membranes.) Neck: Full Range of Motion, Normal Inspection Respiratory: Lungs Clear, No Accessory Muscle Use, No Respiratory Distress, Normal Breath Sounds Cardiovascular: No Edema, No JVD, Regular Rate/Rhythm Breast Exam: Other (Left breast no palpable mass appreciated, no discoloration or rash, no localized tenderness to palpation) Gastrointestinal: Epigastric (Mild), Soft, Tenderness Genitalia: Deferred Pelvic: Deferred Rectal: Deferred Extremities: Normal inspection, Normal range of motion, Non-tender, No pedal edema Neurologic: Alert (Oriented x4), Normal Affect, Normal Mood Cerebellar Function: NOT DONE Reflexes: NOT DONE Skin: Dry, Normal Color, Warm Lymphatic: NOT DONE Was a procedure done? Was a procedure done?: No EKG EKG : Comments Sinus rhythm, rate 91, normal [place] and QRS intervals, QTC prolonged at 501, left axis deviation, incomplete right bundle branch block and left anterior fascicular block, nonspecific T change. Differential Dx Considerations may include: Neuropathic pain, shingles, breast mass, cellulitis, musculoskeletal pain, costochondritis, pleuritis, ACS, PR, pancreatitis, among others X-Ray, Labs, Meds, VS Vital Signs Date Time Temp Pulse Resp B/P (MAP) Pulse Ox O2 Delivery O2 Flow Rate FiO2 10/27/24 11:35 98.6 91 17 127/83 (98) 96 98.6 10/27/24 11:35 91 10/27/24 10:29 91 10/27/24 10:26 98.7 99 16 186/97 (126) 96 98.7 194/89 (124) Lab Test 10/27/24 11:48 10/27/24 10:36 10/27/24 10:33 Range/Units Troponin I High Sensitivity < 3 L < 3 L </=34 ng/L Urine Color Light-yellow Yellow Urine Clarity Clear Clear Urine pH 6.0 5.0-9.0 Urine Specific [place] 1.037 H 1.001-1.035 Urine Protein 1+ H Negative Urine Ketones Negative Negative Urine Blood Negative Negative /uL Urine Nitrite Negative Negative Urine Bilirubin Negative Negative Urine Urobilinogen Normal Negative mg/dL Urine Leukocyte Esterase Negative Negative /uL Urine RBC 4 0 - 4 /hpf Urine Microscopic WBC 1 0-5 /HPF Urine Squamous Epithelial Cells Few <5 /hpf Urine Bacteria None seen None Seen /hpf Urine Glucose 4+ H Normal mg/dL POC Glucose 322 H 70-106 mg/dl White Blood Count 8.0 4.4-10.8 10^3/uL Red Blood Count 5.30 H 4.0-5.20 10^6/uL Hemoglobin 14.2 12.2-16.2 g/dL Hematocrit 43.0 36.0-46.0 % Mean Corpuscular Volume 81.2 80.0-100.0 fL Mean Corpuscular Hemoglobin 26.8 L 28.0-32.0 pg Mean Corpuscular Hemoglobin Concent 33.0 32.0-36.0 g/dL Red Cell Distribution Width 16.1 H 11.8-14.3 % Platelet Count 291 140-450 10^3/uL Mean Platelet Volume 7.7 6.9-10.8 fL Neutrophils (%) (Auto) 55.8 37.0-80.0 % Lymphocytes (%) (Auto) 32.9 10.0-50.0 % Monocytes (%) (Auto) 7.5 0.0-12.0 % Eosinophils (%) (Auto) 2.9 0.0-7.0 % Basophils (%) (Auto) 0.9 0.0-2.0 % Neutrophils # (Auto) 4.4 1.6-8.6 10 ^3/uL Lymphocytes # (Auto) 2.6 0.4-5.4 10 ^3/uL Monocytes # (Auto) 0.6 0-1.3 10 ^3/uL Eosinophils # (Auto) 0.2 0-0.8 10 ^3/uL Basophils # (Auto) 0.1 0-0.2 10 ^3/uL Nucleated Red Blood Cells 0.1 % Sodium Level 136 136-145 mmol/L Potassium Level 4.7 3.5-5.1 mmol/L Chloride Level 100 98-107 mmol/L Carbon Dioxide Level 27 20-31 mmol/L Anion Gap 9 5-15 Blood Urea Nitrogen 12 9-23 mg/dL Creatinine 0.86 0.550-1.02 mg/dL Glomerular Filtration Rate Calc 83 >90 mL/min BUN/Creatinine Ratio 14.0 10.0-20.0 Serum Glucose 340 H 74-106 mg/dL Calcium Level 9.8 8.7-10.4 mg/dL B-Type Natriuretic Peptide 16.28 0-100 pg/mL Lipase 59 H 12-53 U/L Beta HCG, Quantitative 1.1 L 1.5-4.2 mIU/mL Current Medications Medications (Trade) Dose Ordered Sig/Emilia Route Start Time Stop Time Status Last Admin Ketorolac Tromethamine (Toradol Injection) 60 mg ONCE ONCE IM 10/27/24 11:00 10/27/24 11:10 DC 10/27/24 11:42 Lidocaine HCl (Xylocaine 2% Viscous) 10 ml ONCE ONCE PO 10/27/24 11:00 10/27/24 11:10 DC 10/27/24 11:41 Belladonna Alkaloids/ Phenobarbital ( Elixir) 10 ml ONCE ONCE PO 10/27/24 11:00 10/27/24 11:10 DC 10/27/24 11:00 Al Hydrox/Mg Hydrox/Simethicone (Maalox Plus) 30 ml ONCE ONCE PO 10/27/24 11:00 10/27/24 11:10 DC 10/27/24 11:[address] [address] Ph: [phone] DIAGNOSTIC IMAGING Diagnostic Imaging Report : [id number] Signed PATIENT: CHRISTOPHER MENDOZACHUYCCT: [id number] UNIT: [id number] : 1975 LOC: ER ROOM / BED: / AGE / SEX: 49 / F ADM STATUS: REG ER SERVICE 1041 ORDERING PHYSICIAN: SYED VALENZUELA MD PROCEDURE(s): CXRP - CHEST PORTABLE REASON: cp ORDER NUMBER(s): [id number], ACCESSION NUMBER(s): [id number] EXAM: XY CHEST PORTABLE HISTORY: cp COMPARISON: XY CHEST XRAY 1 VIEW on DOS: 01/14/24, XY CHEST XRAY 1 VIEW on DOS: 09/02/23, XY CHEST PORTABLE on DOS: 01/23/23, CHEST XRAY 1 VIEW on DOS: 06/27/21, CHEST PORTABLE on DOS: 05/29/20 TECHNIQUE: Portable upright AP view of the chest was performed. FINDINGS: No pneumothorax, consolidative infiltrates, or pulmonary edema. There is mild left lung base scarring. The heart is borderline enlarged. There is prominence of the left pericardial fat pad. IMPRESSION: No acute intrathoracic process. ATED BY: KHUSHI CHANDLER MD DICTATED DATE/TIME: 10/27/24 1148 SIGNED BY: KHUSHI CHANDLER MD SIGNED DATE/TIME: 10/27/24 1148 CC: X-Ray, Labs, Meds, VS Comment 49-year-old female with a history of hypertension, diabetes, prior pancreatitis presenting with 2 complaints: 1. Left breast pain, 2. Epigastric pain. Both complaints have been present for a month or more. Initial vitals remarkable for BP 186/97 Exam remarkable for an unremarkable left breast, and mild epigastric tenderness to deep palpation Rhythm strip independently interpreted by me: Sinus rhythm, rate 91, no ectopy. Chest x-ray unremarkable CBC unremarkable, metabolic panel remarkable for glucose 340, lipase slightly elevated at 59, BNP and troponin negative, hCG negative, UA positive for protein and glucose, otherwise unremarkable Patient treated with the following in the ED: Toradol 60 mg IM, viscous lidocaine 10 mL/ 10 mL/Maalox 30 mL p.o., regular insulin 4 units subQ On re-evaluation, patient states pain has improved. Blood pressure was 127/83 with other vitals stable. Patient was advised that we are unable to perform mammogram or breast ultrasound in the ED, so it would be best to follow-up with her primary physician with regard to the breast pain. Patient was also advised that lipase is slightly elevated, however is not at a level consistent with pancreatitis. Patient states she has oxycodone ibuprofen at home to take for pain. Patient appears stable for discharge with close outpatient follow-up with her primary physician. Time of 1ST Reevaluation: 12:30 Reevaluation 1ST: Unchanged Time of 2ND Reevaluation: 12:53 Reevaluation 2ND: Improved Patient Education/Counseling: Diagnosis, Treatment Family Education/Counseling: No Family Present Departure 1 Departure Time of Disposition: 12:53 Impression: Primary Impression: Breast pain, left Additional Impressions: Epigastric pain Hyperglycemia Disposition: HOME / SELF CARE / HOMELESS Condition: Stable Additional Instructions: Your blood tests, including screening test for heart attack and heart failure showed your glucose was elevated, however were otherwise unremarkable. Your screening blood test for your pancreas was not consistent with pancreatitis. Continue oxycodone and ibuprofen at home as needed for pain. Follow-up with your primary doctor in 1-2 days for further evaluation of your breast pain. Maintain your appointment for mammogram. Return to ER for persistent or worsening symptoms. Discharged With: Self Critical Care Note Critical Care Time?: No Stability Stability form required: No Heart Score Heart Score: Heart Score Response (Comments) Value History Slightly Suspicious 0 EKG Repolarization Disturb 1 Age 45-64 1 Risk Factors 1 or 2 risk factors 1 Troponin Normal limit 0 Total 3 I personally scribed for SYED VALENZUELA MD ([email or web address]) on 10/27/24 at 12:05. Electronically submitted by Roberto Carlos Hall ([email or web address]). SYED VALENZUELA MD October 27, 2024 12:05
[2024-10-27] MEDS: InsuLIN REG 1unit/0.01ml Soln (100units/ml) SC ONE (12:45)
[2024-10-27 14:00] VITALS: BP 146/90; PULSE 88; RESP 16; TEMP 97.8; O2SAT 96
--- NOTE | 2024-10-27 17:36 | ECG ---
[facility] Test Date: 2024-10-27 Test Time: 10:29:56 Pat Name: CHRISTOPHER MENDOZA Department: ED Room: Gender: F Hall Monitor: EDU : 1975 Requested By: LASHONDA KAPLAN Order Number: [id number] Reading MD: Branden Correa Measurements Intervals [place] Rate: 91 P: 55 [place]: 131 QRS: -56 QRSD: 119 T: 29 QT: 407 QTc: 501 Interpretive Statements Sinus rhythm Incomplete RBBB and LAFB Low voltage, precordial leads Baseline wander in lead(s) II,III,aVR,aVF,V1,V2,V3,V4,V5,V6 Electronically Signed On 10-29-2024 20:58:41 PDT by Branden Correa Please click the below link to view image of tracing.
== END 2024-10-27 14:02 | disposition home or self-care (01) ==
LOC: ER 10:25
DX: N64.4 Mastodynia (principal); M25.512 Pain in left shoulder; R10.13 Epigastric pain; E11.65 Type 2 diabetes mellitus with hyperglycemia; I10 Essential (primary) hypertension; J45.909 Unspecified asthma, uncomplicated; R06.02 Shortness of breath; Z79.84 Long term (current) use of oral hypoglycemic drugs; Z79.899 Other long term (current) drug therapy; Z86.19 Personal history of other infectious and parasitic diseases; Z88.1 Allergy status to other antibiotic agents; Z88.2 Allergy status to sulfonamides; Z88.8 Allergy status to other drugs, medicaments and biological substances; Z98.890 Other specified postprocedural states
CPT/HCPCS: 36415; 71045; 80048; 81001; 82947; 83690; 83880; 84484; 84702; 85025; 93005; 96372; 99285; J1885; 82962

== ENCOUNTER 2024-11-21 17:06 | Emergency (ER) | payer MEDICARE, MEDICAID ==
[~2024-11-21] VITALS: Ht 162.6 cm; Wt 80.9 kg
[2024-11-21 17:19] VITALS: TEMP 97.3
[2024-11-21 17:35] LABS: Urine Bacteria None Seen /hpf (None Seen)
[2024-11-21 17:45] LABS: Urine Blood 2+ /uL (Negative); Urine Clarity Turbid (Clear); Urine Color Colorless (Yellow); Urine Protein, UAD 1+ (Negative); Urine Specific Gravity 1.036 (1.001-1.035); Urine Squamous Epithelial Cell FEW /hpf (<5); Urine Urobilinogen Normal (Negative); Urine WBC 523 /HPF (0-5); Urine pH 5.5 (5.0-9.0)
--- NOTE | 2024-11-21 19:03 | ED.PDOC ---
General HPI Comments 49 y.o female with PMHx of spinal stenosis, DM, and HTN, presents to the ED for a chief complaint of lower abdominal pain associated with nausea, pressure on urination and urinary burning/frequency that started 4 days ago. Patient reports pain is sharp, constant, radiating to her low back and has no alleviating factors despite taking Oxycodone and Ibuprofen. Patient denies any fever, hematuria, flank pain, diarrhea, vomiting or chills. Chief Complaint: Abdominal Pain Time Seen by MD: 18:57 Primary Care Provider: ASAD CERVANTES Reviewed notes: Nurses Notes, Medications, Allergies Allergies: Coded Allergies: Atorvastatin (Unverified Allergy, Unknown, 03/09/23) Patient states that her mouth and throat swell, and she gets generalized itching and hives Sulfamethoxazole w/Trimethoprim (Verified Allergy, Unknown, 05/24/20) Home Meds Active Scripts Phenazopyridine HCl (Phenazopyridine Hydrochol) 200 Mg Tab, 200 MG PO TID PRN, #9 TAB prn urinary pain Prov:SYED VALENZUELA MD 11/21/24 Ondansetron Odt 4MG Tab (ZOFRAN PO) 4 Mg Tb, 4 MG PO TID PRN, #30 TAB prn nausea/vomiting ODT TAB-DISSOLVE IN MOUTH, THEN SWALLOW Prov:SYED VALENZUELA MD 11/21/24 Cephalexin Monohydrate (Cephalexin) 500 Mg Cap, 1 CAP PO QID for 10 Days, #40 CAP Prov:SYED VALENZUELA MD 11/21/24 Benzonatate (Benzonatate) 200 Mg Cap, 1 CAP PO TIDP, #30 CAP Prov:LEDY VERGARA 07/16/24 Methylprednisolone (Medrol Dosepak) 4 Mg Reddy, 4 MG PO UD, #21 TAB UAD Prov:LEDY VERGARA 07/16/24 Amitriptyline Hcl (Amitriptyline Hcl) 25 Mg Tab, 1 TAB PO QHSP PRN, #20 TAB Prov:LEDY VERGARA 03/12/24 Gabapentin (Gabapentin) 300 Mg Cap, 300 MG PO BID, #30 CAP Prov:LEDY VERGARA 03/12/24 Cephalexin (KEFLEX CAPSULE) 250 Mg Cp, 500 MG PO BID for 10 Days, #40 TAB Prov:ELLE ANG MD 02/26/24 Valacyclovir Hcl (Valtrex) 1 Gm Tab, 1 TAB PO TID for 14 Days, #42 TAB Prov:RACHEL TORRES 02/22/24 Ciprofloxacin Hcl (Cipro) 500 Mg Tab, 1 TAB PO BID for 5 Days, #10 TAB Prov:RACHEL TORRES 02/21/24 Insulin Glargine (Lantus) 100 Unit/Ml Inj, 25 UNIT SC QAM for 30 Days, #1 INJ 2 Refills Prov:BALJINDER GUZMÁN RESIDENT 01/15/24 Metformin Hydrochloride (Metformin Hcl) 1,000 Mg Tab, 1 TAB PO BID for 30 Days, #60 TAB Prov:BALJINDER GUZMÁN RESIDENT 01/15/24 Lidocaine (LIDODERM 5% TOPICAL PATCH) 1 Patch Ph, 1 PATCH TOP DAILY for 30 Days, #30 PATCH 0 Refills Prov:ZAINAB QURESHI TEACHER EDUCATION INSTRUCTOR 12/29/23 Methocarbamol (Methocarbamol) 750 Mg Tab, 750 MG PO BID, #20 TAB Prov:LEDY VERGARA PA 11/05/23 Sucralfate (Sucralfate) 1 Gm Tab, 1 GM PO QID, #120 TAB Prov:NUNU SHAVER MD 09/03/23 Pantoprazole Sodium Sesquihydr (Pantoprazole Sodium) 40 Mg Tab, 40 MG PO BID, #60 TAB Prov:NUNU SHAVER MD 09/03/23 Pantoprazole Sodium Sesquihydr (Pantoprazole Sodium) 40 Mg Tab, 40 MG PO DAILY, #30 TAB Prov:NUNU SHAVER MD 03/11/23 Reported Medications Cholecalciferol (VITAMIN D3) 2,000 Unit Tab, 1 TAB PO DAILY, % 03/10/23 Dexlansoprazole (Dexlansoprazole) 30 Mg Cap, 1 TAB PO DAILY 03/10/23 Beclomethasone Dipropionate (Qvar Redihaler) 40 Mcg/Act Aer, 2 PUFF INH DAILY 03/10/23 Oxycodone W/ Acetaminophen (Percocet 5/325MG) 1 Tab Tb, 1 TAB PO TID PRN for PAIN SCALE 7 THRU 10, % 03/10/23 Ondansetron HCl (Ondansetron Hydrochloride) 4 Mg Tab, 1 TAB PO DAILY 03/10/23 Docusate Sodium (Docusate Sodium) 100 Mg Cap, 1 CAP PO DAILY 03/10/23 Information Source: Patient Mode of Arrival: Ambulatory Severity: Moderate Timing: Days (4) Duration: Since onset Onset: Spontaneous Symptoms: Dysuria Location: Suprapubic Modifying factors: None associated signs and symptoms: Abdominal Pain, Flank Pain, Back Pain, Dysuria Past Medical History PAST MEDICAL HISTORY: Anxiety, Asthma, DM, Gallstones, HTN 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: No Pertinent PAPER MACHINE TENDER History Family History Family History: Reviewed,noncontributory to illness, No family hx ofKidney mary, No family hx of Liver mary, Family hx of DM, Family hx of Cancer Social History Smoker: Non-Smoker Alcohol: Denies ETOH Use Drugs: Denies Drug Use Lives In: Home Constitutional: denies: chills, diaphoresis, fatigue, fever, malaise, sweats, weakness, others EENTM: denies: blurred vision, double vision, ear bleeding, ear discharge, ear drainage, ear pain, ear ringing, eye pain, eye redness, hearing loss, mouth pain, mouth swelling, nasal discharge, nose bleeding, nose congestion, nose pain, photophobia, tearing, throat pain, throat swelling, voice changes, others Respiratory: denies: cough, hemoptysis, orthopnea, SOB at rest, shortness of breath, SOB with excertion, stridor, wheezing, others Cardiovascular: denies: chest pain, dizzy spells, diaphoresis, Dyspnea on exertion, edema, irregular heart beat, left arm pain, lightheadedness, palpitations, PND, syncope, others Gastrointestinal: reports: abdominal pain; denies: abdomen distended, blood streaked bowels, constipated, diarrhea, dysphagia, difficulty swallowing, hematemesis, melena, nausea, poor appetite, poor fluid intake, rectal bleeding, rectal pain, vomiting, others Genitourinary: reports: dysuria, flank pain, pain; denies: abnormal vagina bleeding, burning, dyspareunia, frequency, hematuria, incontinence, , vagina discharge, urgency, others Neurological: denies: dizziness, fainting, headache, left sided numbness, left sided weakness, numbness, paresthesia, pre-existing deficit, right sided numbn ess, right sided weakness, seizure, speech problems, tingling, tremors, weakness, others Musculoskeletal: reports: back pain; denies: gout, joint pain, joint swelling, muscle pain, muscle stiffness, neck pain, others Integumetry: denies: bruises, change in color, change in hair/nails, dryness, laceration, lesions, lumps, rash, wounds, others Allergic/Immunocompromised: denies: Difficulty Healing, Frequent Infections, Hives, Itching, others Hematologic/Lymphatic: denies: anemia, blood clots, easy bleeding, easy bruising, swollen glands, others Endocrine: denies: excessive hunger, excessive sweating, excessive thirst, excessive urination, flushing, intolerance to cold, intolerance to heat, unexplained weight gain, unexplained weight loss, others Psychiatric: denies: anxiety, bipolar disorder, depression, hopeless, panic disorder, schizophrenia, sleepless, suicidal, others All Other Systems: Reviewed and Negative Physical Exam General Appearance: No Apparent Distress, Obese HEENT: Other (Pupils and face symmetric. Moist mucous membranes.) Neck: Full Range of Motion, Normal Inspection Respiratory: Lungs Clear, No Accessory Muscle Use, No Respiratory Distress, Normal Breath Sounds Cardiovascular: No Edema, No JVD, Regular Rate/Rhythm Breast Exam: Deferred Gastrointestinal: Soft, Suprapubic, Tenderness Genitalia: Deferred Pelvic: Deferred Rectal: Deferred Extremities: Normal inspection, Normal range of motion, Non-tender, No pedal edema Neurologic: Alert (oriented x 4), Normal Affect, Normal Mood, Other (Ambulatory) Cerebellar Function: NOT DONE Reflexes: NOT DONE Skin: Dry, Normal Color, Warm Lymphatic: NOT DONE Was a procedure done? Was a procedure done?: No Differential Diagnosis Kidney stone (Female): DJD, Musculoskeletal pain, Pyelonephritis, Strain Urinary Problem (Female): UTI X-Ray, Labs, Meds, VS Vital Signs Date Time Temp Pulse Resp B/P (MAP) Pulse Ox O2 Delivery O2 Flow Rate FiO2 11/21/24 17:19 97.3 95 18 143/68 (93) 99 97.3 Lab Test 11/21/24 17:34 Range/Units Urine Color Colorless Yellow Urine Clarity Turbid H Clear Urine pH 5.5 5.0-9.[address] 1.036 H 1.001-1.035 Urine Protein 1+ H Negative Urine Ketones Negative Negative Urine Blood 2+ H Negative /uL Urine Nitrite 2+ H Negative Urine Bilirubin Negative Negative Urine Urobilinogen Normal Negative mg/dL Urine Leukocyte Esterase 3+ Negative /uL Urine RBC 25 0 - 4 /hpf Urine Microscopic WBC 523 H 0-5 /HPF Urine Squamous Epithelial Cells Few <5 /hpf Urine Bacteria None seen None Seen /hpf Urine Glucose 4+ H Normal mg/dL Urine Test Negative Negative X-Ray, Labs, Meds, VS Comment 49-year-old female with a history of diabetes and DJD complaining of suprapubic discomfort, nausea, dysuria and urinary frequency Vitals remarkable for BP 143/68 Exam remarkable for suprapubic tenderness Rhythm strip independently interpreted by me: Sinus rhythm, rate 85, no ectopy. UA abnormal consistent with UTI Patient treated with the following in the ED: 2 L 0.9 normal saline IV bolus, Rocephin 2 g IV, Toradol 30 mg IV, Zofran 4 mg IV On re-evaluation, patient states pain has improved. Vitals were stable. Patient appears stable for discharge with close outpatient follow-up with her primary physician. Rx Keflex, Zofran, Pyridium Time of 1ST Reevaluation: 19:01 Reevaluation 1ST: Unchanged Patient Education/Counseling: Diagnosis, Treatment, Prognosis Family Education/Counseling: No Family Present Departure 1 Departure Time of Disposition: 19:14 Impression: Primary Impression: Urinary tract infection Qualified Codes: N39.0 - Urinary tract infection, site not specified Disposition: HOME / SELF CARE / HOMELESS Condition: Stable Additional Instructions: Your urine test was abnormal, consistent with a urinary tract infection. I have prescribed antibiotics, pain medication, and medication for nausea. Follow-up with your primary doctor in 1-2 days. Return to ER for persistent or worsening symptoms. e-Prescriptions Phenazopyridine HCl (Phenazopyridine Hydrochol) 200 Mg Tab 200 MG PO TID PRN, #9 TAB prn urinary pain Prov: SYED VALENZUELA MD 11/21/24 Ondansetron Odt 4MG Tab (ZOFRAN PO) 4 Mg Tb 4 MG PO TID PRN, #30 TAB prn nausea/vomiting ODT TAB-DISSOLVE IN MOUTH, THEN SWALLOW Prov: SYED VALENZUELA MD 11/21/24 Cephalexin Monohydrate (Cephalexin) 500 Mg Cap 1 CAP PO QID for 10 Days, #40 CAP Prov: SYED VALENZUELA MD 11/21/24 Discharged With: Self Critical Care Note Critical Care Time?: No Stability Stability form required: No I personally scribed for SYED VALENZUELA MD ([email or web address]) on 11/21/24 at 19:03. Electronically submitted by Tita Villarreal ([facility]). SYED VALENZUELA MD Nov 21, 2024 19:03
[2024-11-21] MEDS ORDERED: ZOFR4T PO (19:06)
[2024-11-21] MEDS ORDERED: CEPH500C PO (19:06)
[2024-11-21] MEDS ORDERED: PHEN-1045 PO (19:06)
[2024-11-21 19:20] VITALS: BP 119/81; PULSE 97; RESP 18; O2SAT 96
[2024-11-21] MEDS: cefTRIAXone 2GM/50ML D5W 50 ML IV ONE (19:35)
[2024-11-21] MEDS: ONDANSETRON HCL 4 MG/2 ML VIAL IV ONE (19:35)
[2024-11-21] MEDS: SODIUM CHLORIDE 0.9% 2,000 ML IV ONE (19:35)
[2024-11-21] MEDS: KETOROLAC TROMETH 30 MG/ML 1ML VIAL IV ONE (19:36)
== END 2024-11-21 20:52 | disposition home or self-care (01) ==
LOC: ER 17:06
DX: N39.0 Urinary tract infection, site not specified (principal); I10 Essential (primary) hypertension; E11.9 Type 2 diabetes mellitus without complications; J45.909 Unspecified asthma, uncomplicated; Z79.84 Long term (current) use of oral hypoglycemic drugs; Z79.899 Other long term (current) drug therapy; Z98.890 Other specified postprocedural states; Z88.1 Allergy status to other antibiotic agents; Z88.2 Allergy status to sulfonamides
CPT/HCPCS: 81001; 81025; 96365; 96375; 99284; J0696; J1885; J2405; J7030

== ENCOUNTER 2025-02-23 05:33 | Inpatient (IN) | payer MEDICARE, MEDICAID ==
[~2025-02-23] VITALS: Ht 162.6 cm; Wt 82.4 kg
[~2025-02-23 05:33] MED LIST changes: +CEPH500C PO; +PHEN-1045 PO; +ZOFR4T PO
--- NOTE | 2025-02-23 06:33 | ED.PDOC ---
GI ASSESSMENT HPI Comments 49 y/o F, with PMHx of gallstones, pancreatitis, anxiety, asthma, DM, and HTN presents to the ED for CC of abdominal pain. Patient states, she has been experiencing intermittent epigastric abdominal pain that radiates to her upper- mid back x3days. Patient reports associated symptoms of nausea, denies vomiting at this time. Patient denies any further symptoms including: fever, chills, diarrhea, melena, or hematemesis. No other symptoms or modifying factors are present at this time. Chief Complaint: Abdominal Pain Time Seen by MD: 06:32 Primary Care Provider: ASAD CERVANTES Reviewed Notes: Nurses Notes, Medications, Allergies Allergies: Coded Allergies: Atorvastatin (Unverified Allergy, Unknown, 03/09/23) Patient states that her mouth and throat swell, and she gets generalized itching and hives Sulfamethoxazole w/Trimethoprim (Verified Allergy, Unknown, 05/24/20) Home Meds Active Scripts Phenazopyridine HCl (Phenazopyridine Hydrochol) 200 Mg Tab, 200 MG PO TID PRN, #9 TAB prn urinary pain Prov:SYED VALENZUELA MD 11/21/24 Ondansetron Odt 4MG Tab (ZOFRAN PO) 4 Mg Tb, 4 MG PO TID PRN, #30 TAB prn nausea/vomiting ODT TAB-DISSOLVE IN MOUTH, THEN SWALLOW Prov:SYED VALENZUELA MD 11/21/24 Cephalexin Monohydrate (Cephalexin) 500 Mg Cap, 1 CAP PO QID for 10 Days, #40 CAP Prov:SYED VALENZUELA MD 11/21/24 Benzonatate (Benzonatate) 200 Mg Cap, 1 CAP PO TIDP, #30 CAP Prov:LEDY VERGARA 07/16/24 Methylprednisolone (Medrol Dosepak) 4 Mg Reddy, 4 MG PO UD, #21 TAB UAD Prov:LEDY VERGARA 07/16/24 Amitriptyline Hcl (Amitriptyline Hcl) 25 Mg Tab, 1 TAB PO QHSP PRN, #20 TAB Prov:LEDY VERGARA 03/12/24 Gabapentin (Gabapentin) 300 Mg Cap, 300 MG PO BID, #30 CAP Prov:LEDY VERGARA 03/12/24 Cephalexin (KEFLEX CAPSULE) 250 Mg Cp, 500 MG PO BID for 10 Days, #40 TAB Prov:ELLE ANG MD 02/26/24 Valacyclovir Hcl (Valtrex) 1 Gm Tab, 1 TAB PO TID for 14 Days, #42 TAB Prov:RACHEL TORRES 02/22/24 Ciprofloxacin Hcl (Cipro) 500 Mg Tab, 1 TAB PO BID for 5 Days, #10 TAB Prov:RACHEL TORRESP 02/21/24 Insulin Glargine (Lantus) 100 Unit/Ml Inj, 25 UNIT SC QAM for 30 Days, #1 INJ 2 Refills Prov:BALJINDER GUZMÁN [facility] 01/15/24 Metformin Hydrochloride (Metformin Hcl) 1,000 Mg Tab, 1 TAB PO BID for 30 Days, #60 TAB Prov:BALJINDER GUZMÁN [facility] 01/15/24 Lidocaine (LIDODERM 5% TOPICAL PATCH) 1 Patch Ph, 1 PATCH TOP DAILY for 30 Days, #30 PATCH 0 Refills Prov:ZAINAB QURESHI NP 12/29/23 Methocarbamol (Methocarbamol) 750 Mg Tab, 750 MG PO BID, #20 TAB Prov:LEDY VERGARA 11/05/23 Sucralfate (Sucralfate) 1 Gm Tab, 1 GM PO QID, #120 TAB Prov:NUNU SHAVER MD 09/03/23 Pantoprazole Sodium Sesquihydr (Pantoprazole Sodium) 40 Mg Tab, 40 MG PO BID, #60 TAB Prov:NUNU SHAVER MD 09/03/23 Pantoprazole Sodium Sesquihydr (Pantoprazole Sodium) 40 Mg Tab, 40 MG PO DAILY, #30 TAB Prov:NUNU SHAVER MD 03/11/23 Reported Medications Cholecalciferol (VITAMIN D3) 2,000 Unit Tab, 1 TAB PO DAILY, % 03/10/23 Dexlansoprazole (Dexlansoprazole) 30 Mg Cap, 1 TAB PO DAILY 03/10/23 Beclomethasone Dipropionate (Qvar Redihaler) 40 Mcg/Act Aer, 2 PUFF INH DAILY 03/10/23 Oxycodone W/ Acetaminophen (Percocet 5/325MG) 1 Tab Tb, 1 TAB PO TID PRN for PAIN SCALE 7 THRU 10, % 03/10/23 Ondansetron HCl (Ondansetron Hydrochloride) 4 Mg Tab, 1 TAB PO DAILY 03/10/23 Docusate Sodium (Docusate Sodium) 100 Mg Cap, 1 CAP PO DAILY 03/10/23 Information Source: Patient Mode of Arrival: Ambulatory Timing: Days Duration: Since onset Prehospital treatment: None Quality: None Vomitus: None Stool: Normal Severity: Moderate Recent: None Recent Hx of: None Pain Location: Epigastric Modifying Factors: Nothing Associated sign and symptoms: Abdominal Pain Past Medical History PAST MEDICAL HISTORY: Anxiety, Asthma, DM, Gallstones, HTN Surgical History: Hernia Repair FILTER PRESS PUMPER History: No Pertinent FILTER PRESS PUMPER History Family History Family History: Reviewed,noncontributory to illness, No family hx ofKidney mary, No family hx of Liver mary, Family hx of DM, Family hx of Cancer Social History Smoker: Non-Smoker Alcohol: Denies ETOH Use Drugs: Denies Drug Use Lives In: Home Constitutional: denies: chills, diaphoresis, fatigue, fever, malaise, sweats, weakness, others EENTM: denies: blurred vision, double vision, ear bleeding, ear discharge, ear drainage, ear pain, ear ringing, eye pain, eye redness, hearing loss, mouth pain, mouth swelling, nasal discharge, nose bleeding, nose congestion, nose pain, photophobia, tearing, throat pain, throat swelling, voice changes, others Respiratory: denies: cough, hemoptysis, orthopnea, SOB at rest, shortness of breath, SOB with excertion, stridor, wheezing, others Cardiovascular: denies: chest pain, dizzy spells, diaphoresis, Dyspnea on exertion, edema, irregular heart beat, left arm pain, lightheadedness, palpitations, PND, syncope, others Gastrointestinal: reports: abdominal pain, nausea; denies: abdomen distended, blood streaked bowels, constipated, diarrhea, dysphagia, difficulty swallowing, hematemesis, melena, poor appetite, poor fluid intake, rectal bleeding, rectal pain, vomiting, others Genitourinary: denies: abnormal vagina bleeding, burning, dyspareunia, dysuria, flank pain, frequency, hematuria, incontinence, pain, , vagina discharge, urgency, others Neurological: denies: dizziness, fainting, headache, left sided numbness, left sided weakness, numbness, paresthesia, pre-existing deficit, right sided numbness, right sided weakness, seizure, speech problems, tingling, tremors, weakness, others Musculoskeletal: denies: back pain, gout, joint pain, joint swelling, muscle pain, muscle stiffness, neck pain, others Integumetry: denies: bruises, change in color, change in hair/nails, dryness, laceration, lesions, lumps, rash, wounds, others Allergic/Immunocompromised: denies: Difficulty Healing, Frequent Infections, Hives, Itching, others Hematologic/Lymphatic: denies: anemia, blood clots, easy bleeding, easy bruising, swollen glands, others Endocrine: denies: excessive hunger, excessive sweating, excessive thirst, excessive urination, flushing, intolerance to cold, intolerance to heat, unexplained weight gain, unexplained weight loss, others Psychiatric: denies: anxiety, bipolar disorder, depression, hopeless, panic disorder, schizophrenia, sleepless, suicidal, others All Other Systems: Reviewed and Negative Physical Exam General Appearance: Moderate Distress, Normal, Other (appears uncomfortable) HEENT: Normal ENT Inspection, Pharynx Normal Neck: Full Range of Motion, Non-Tender, Normal, Normal Inspection Respiratory: Chest Non-Tender, Lungs Clear, No Accessory Muscle Use, No Respiratory Distress, Normal Breath Sounds Cardiovascular: No Edema, No Murmur, No Gallop, Normal Peripheral Pulses, Regular Rate/Rhythm Breast Exam: Deferred Gastrointestinal: No Organomegaly, Non Tender, No Pulsatile Mass, Normal Bowel Sounds, Soft Genitalia: Deferred Pelvic: Deferred Rectal: Deferred Extremities: No calf tenderness, Normal capillary refill, Normal inspection, Normal range of motion, Non-tender, No pedal edema Musculoskeletal : Apperance: Normal Neurologic: Alert, correctional counselor II-XII nml as Tested, No Motor Deficits, Normal Affect, Normal Mood, No Sensory Deficits Cerebellar Function: Normal Reflexes: Normal Skin: Dry, Normal Color, Warm Lymphatic: No Adenopathy Was a procedure done? Was a procedure done?: No GI differential Dx Differential Diagnosis: Cholangitis, Cholecystitis, Diverticular disease, Gastritis/PUD, Gastroenteritis, Inflammatory BD X-Ray, Labs, Meds, VS Vital Signs Date Time Temp Pulse Resp B/P (MAP) Pulse Ox O2 Delivery O2 Flow Rate FiO2 02/23/25 16:17 98.5 99 20 152/84 (106) 99 98.5 02/23/25 11:58 72 16 133/72 02/23/25 11:28 77 18 156/77 02/23/25 10:25 98.3 89 22 156/77 (103) 98 98.3 02/23/25 05:34 98.2 87 18 159/70 100 98.2 Lab Test 02/23/25 10:28 02/23/25 07:49 Range/Units Urine Color Light-yellow Yellow Urine Clarity Clear Clear Urine pH 5.5 5.0-9.0 Urine Specific [place] 1.022 1.001-1.035 Urine Protein 1+ H Negative Urine Ketones Negative Negative Urine Blood Negative Negative /uL Urine Nitrite Negative Negative Urine Bilirubin Negative Negative Urine Urobilinogen Normal Negative mg/dL Urine Leukocyte Esterase Negative Negative /uL Urine RBC 1 0 - 4 /hpf Urine Microscopic WBC 2 0-5 /HPF Urine Squamous Epithelial Cells Few <5 /hpf Urine Bacteria None seen None Seen /hpf Urine Mucus Few None Seen Urine Glucose 4+ H Normal mg/dL White Blood Count 8.7 4.4-10.8 10^3/uL Red Blood Count 5.24 H 4.0-5.20 10^6/uL Hemoglobin 15.0 12.2-16.2 g/dL Hematocrit 43.7 36.0-46.0 % Mean Corpuscular Volume 83.3 80.0-100.0 fL Mean Corpuscular Hemoglobin 28.7 28.0-32.0 pg Mean Corpuscular Hemoglobin Concent 34.4 32.0-36.0 g/dL Red Cell Distribution Width 13.7 11.8-14.3 % Platelet Count 387 140-450 10^3/uL Mean Platelet Volume 7.5 6.9-10.8 fL Neutrophils (%) (Auto) 62.7 37.0-80.0 % Lymphocytes (%) (Auto) 25.6 10.0-50.0 % Monocytes (%) (Auto) 8.0 0.0-12.0 % Eosinophils (%) (Auto) 2.9 0.0-7.0 % Basophils (%) (Auto) 0.8 0.0-2.0 % Neutrophils # (Auto) 5.4 1.6-8.6 10 ^3/uL Lymphocytes # (Auto) 2.2 0.4-5.4 10 ^3/uL Monocytes # (Auto) 0.7 0-1.3 10 ^3/uL Eosinophils # (Auto) 0.3 0-0.8 10 ^3/uL Basophils # (Auto) 0.1 0-0.2 10 ^3/uL Nucleated Red Blood Cells 0.1 % Sodium Level 136 136-145 mmol/L Potassium Level 4.0 3.5-5.1 mmol/L Chloride Level 100 98-107 mmol/L Carbon Dioxide Level 25 20-31 mmol/L Anion Gap 11 5-15 Blood Urea Nitrogen 10 9-23 mg/dL Creatinine 0.79 0.550-1.02 mg/dL Glomerular Filtration Rate Calc 92 >90 mL/min BUN/Creatinine Ratio 12.7 10.0-20.0 Serum Glucose 253 H 74-106 mg/dL Calcium Level 9.6 8.7-10.4 mg/dL Lipase 69 H 12-53 U/L Current Medications Medications (Trade) Dose Ordered Sig/Emilia Route Start Time Stop Time Status Last Admin Sodium Chloride 1,000 ml @ 1,000 mls/hr Q1H ONCE IV 02/23/25 10:00 02/23/25 11:09 DC 02/23/25 11:28 Morphine Sulfate 4 mg ONCE ONCE IV 02/23/25 10:00 02/23/25 11:09 DC 02/23/25 11:28 Ondansetron HCl (Zofran) 4 mg ONCE ONCE IV 02/23/25 10:00 02/23/25 11:09 DC 02/23/25 11:24 Ondansetron HCl (Zofran) 4 mg ONCE ONCE IV 02/23/25 12:45 02/23/25 12:46 DC 02/23/25 12:53 Time of 1ST Reevaluation: 07:02 Reevaluation 1ST: Unchanged Patient Education/Counseling: Diagnosis, Treatment Family Education/Counseling: No Family Present SEPSIS Sepsis Screen Date sepsis recognized/suspect: Feb 23, 2025 Time Sepsis recognized/suspect: 05 Recent Procedure: No On Antibiotic Therapy: No Respiratory Rate >20: No Heart Rate >90: No Temp<36 C (96.8 F) or >38.3 C: No SBP <90 or MAP <65 mmHG: No New Acute Mental Status Change: No Is the patient on CPAP, BIPAP,: No Physician Orders Ct Ab Pel With Iv Con Only (02/23/25 11:36) Vital Signs Date Time Temp Pulse Resp B/P (MAP) Pulse Ox O2 Delivery O2 Flow Rate FiO2 02/23/25 16:17 98.5 99 20 152/84 (106) 99 98.5 02/23/25 11:58 72 16 133/72 02/23/25 11:28 77 18 156/77 02/23/25 10:25 98.3 89 22 156/77 (103) 98 98.3 02/23/25 05:34 98.2 87 18 159/70 100 98.2 Laboratory Tests Test 02/23/25 07:49 White Blood Count 8.7 10^3/uL (4.4-10.8) Medications Medications Dose Ordered Sig/Emilia Route Start Time Stop Time Status Last Admin Dose Admin Morphine Sulfate 4 mg ONCE ONCE IV 02/23/25 10:00 02/23/25 11:09 DC 02/23/25 11:28 Ondansetron HCl 4 mg ONCE ONCE IV 02/23/25 10:00 02/23/25 11:09 DC 02/23/25 11:24 Ondansetron HCl 4 mg ONCE ONCE IV 02/23/25 12:45 02/23/25 12:46 DC 02/23/25 12:53 Sodium Chloride 1,000 ml @ 1,000 mls/hr Q1H ONCE IV 02/23/25 10:00 02/23/25 11:09 DC 02/23/25 11:28 Departure 1 Departure Time of Disposition: 18:05 (Patient presented with abdominal pain that was concerning for possible appendicits, gastritis, cholecystitis, colitis, gastroenteritis, sbo, or orther possible surgical emergency. Data: 1. I ordered and reviewed the result of at least 3 labs including a CBC, BMP, and Urinalysis. 2. I independently interpreted the following tests: CT Abdomen and Pelvis is concerning for intractable abdominal pain.Risk:This patient has a high risk of morbidity due to further diagnostic testing or treatment and may suffer from an acute abdominal process disorder. Workup reveals intractable abdominal pain and patient should be admitted for further workup. and possible expert consultation. ) Impression: Primary Impression: Intractable abdominal pain Disposition: ADMITTED INPATIENT Admit to: Med Surg Condition: Serious Critical Care Note Critical Care Time?: Yes Critical care comment: Intractable abdominal pain Authorized and Performed by: Lashonda Richardson MD Total critical care time: Approximately 38 minutes Due to a high probability of clinically significant, life threatening deterioration, the patient required my highest level of preparedness to intervene emergently and I personally spent this critical care time directly and personally managing the patient. This critical care time included obtaining a history; examining the patient; pulse oximetry; ordering and review of studies; arranging urgent treatment with development of a management plan; evaluation of patient's response to treatment; frequent reassessment; and, discussions with other providers. This critical care time was performed to assess and manage the high probability of imminent, life-threatening deterioration that could result in multi-organ failure. It was exclusive of separately billable procedures and treating other patients and teaching time. Please see my other sections and the rest of the note for further information on patient assessment and treatment. Stability Stability form required: No Heart Score Heart Score: Heart Score Response (Comments) Value History N/A 0 EKG N/A 0 Age N/A 0 Risk Factors N/A 0 Troponin N/A 0 Total 0 I personally scribed for LASHONDA RICHARDSON MD ([email or web address]) on 02/23/25 at 06:33. Electronically submitted by Jaki Chow ([email or web address]). I personally scribed for LASHONDA RICHARDSON MD ([email or web address]) on 02/23/25 at 07:10. Electronically submitted by Jaki Chow ([email or web address]). I personally scribed for LASHONDA RICHARDSON MD ([email or web address]) on 02/23/25 at 07:53. Electronically submitted by Jaki Chow ([email or web address]). LASHONDA RICHARDSON MD Feb 23, 2025 06:33
[2025-02-23 08:12] LABS: Hematocrit 43.7 % (36.0-46.0); Hemoglobin 15.0 g/dL (12.2-16.2); Mean Corpuscular Hemoglobin 28.7 pg (28.0-32.0); Mean Corpuscular Volume 83.3 fL (80.0-100.0); Nucleated Red Blood Cells % 0.1 %
[2025-02-23 08:23] LABS: Chloride 100 mmol/L (98-107); Potassium 4.0 mmol/L (3.5-5.1)
[2025-02-23 08:24] LABS: Anion Gap 11 (5-15); Calcium 9.6 mg/dL (8.7-10.4); Carbon Dioxide 25 mmol/L (20-31)
[2025-02-23 08:25] LABS: Sodium 136 mmol/L (136-145)
[2025-02-23 08:29] LABS: BUN/Creatinine Ratio 12.7 (10.0-20.0); Blood Urea Nitrogen 10 mg/dL (9-23)
[2025-02-23 08:31] LABS: Glucose 253 mg/dL (74-106)
[2025-02-23 10:42] LABS: Urine Protein, UAD 1+ (Negative)
[2025-02-23] MEDS: ONDANSETRON HCL 4 MG/2 ML VIAL IV ONE ×2 (11:24→12:53)
[2025-02-23] MEDS: SODIUM CHLORIDE 0.9% 1,000 ML IV ONE ×2 (11:28→23:04)
[2025-02-23] MEDS: MORPHINE SULFATE 4 MG/ML SYR/VIAL IV ONE (11:28)
[2025-02-23] MEDS: IOHEXOL 300 MG/ML 100ML BOTTLE IJ ONE (12:46)
--- NOTE | 2025-02-23 12:48 | DVH ---
EXAM: CT CT AB PEL WITH IV CON ONLY HISTORY: abdominal pain TECHNIQUE: Volumetric multidetector CT images of the abdomen and pelvis were obtained after the admin istration of intravenous contrast. All CT scans at this facility use dose modulation, iterative recon struction, and/or weight based dosing when appropriate to reduce radiation dose to as low as reasonab ly achievable. COMPARISON: US ABDOMEN LIMITED on DOS: 01/17/25 FINDINGS: [LOWER CHEST]: The partially visualized lung bases are clear without a pleural effusion. [LIVER]: Normal hepatic size without suspicious focal lesion. [GALLBLADDER AND BILIARY TREE]: No cholelithiasis. [SPLEEN]: Unremarkable. [PANCREAS]: Unremarkable. [ADRENAL GLANDS]: Unremarkable [KIDNEYS]: No hydronephrosis. No nephroureterolithiasis. No suspicious focal lesion. [BLADDER]: Unremarkable for the degree distention. [REPRODUCTIVE ORGANS]: Presumed area of hypoattenuation along the anterior myometrium which may rep resent underlying fibroid measuring 1.9 cm. Subsequent slight mass effect along the endometrium. [BOWEL/MESENTERY]: Moderately sized sliding hiatal hernia with distal esophageal wall thickening and thickening of the gastroesophageal junction. Correlate for reflux/gastritis. Minimal sigmoid diverti culosis. [ASCITES]: Absent [LYMPHADENOPATHY]: No pathologically enlarged lymph nodes by CT size criteria [VASCULATURE]: No aneurysmal dilatation. [ABDOMINAL WALL]: Unremarkable. [MUSCULOSKELETAL]: No acute fracture or aggressive focal osseous lesion. IMPRESSION: 1. No CT evidence of an acute abdominal/pelvic process. 2. Moderately sized sliding hiatal hernia with distal esophageal wall thickening and thickening of th e gastroesophageal junction. 3. Correlate for reflux/gastritis. 4. Minimal sigmoid diverticulosis.
[2025-02-23] MEDS ORDERED: SODIUM CHLORIDE 0.9% 1,000 ML IV SCH (19:00)
[2025-02-23] MEDS ORDERED: DOCUSATE SOD 100 MG CAP PO PRN (19:00)
--- NOTE | 2025-02-23 19:09 | DVHHP2 ---
ZULEIMA TAVERAS RESIDENT 02/23/25 1909: History of Present Illness History of Present Illness Patient is 49 years old female with past medical history of hypertension, diabetes mellitus type 2, asthma, anxiety, spinal stenosis came with a complaint of abdominal pain for 3 days. As per patient she has been having epigastric pain started 3 days ago, initially intermittent now continuous for last 1 day, severity 10/10, pressure-like, radiating to the back, associated with the nausea but no vomiting. Patient also endorsed diarrhea 3 times in the last couple of days, no blood. Patient denied any fever, dysuria, acute joint redness or swelling, chest pain or shortness of breaths. Initial lab workup revealed blood sugar 253, lipase 59, CT abdominal pelvis revealed - Moderately sized sliding hiatal hernia with distal esophageal wall thickening and thickening of the gastroesophageal junction. Minimal sigmoid diverticulosis. PMH-hypertension, diabetes mellitus type 2, asthma, anxiety, spent stenosis PSH- hernia repair Allergy- atorvastatin, sulfamethoxazole with trimethoprim Personal History/ Social History- denies smoking/alcoholism/drug abuse Home medications-insulin glargine, metformin, pantoprazole, gabapentin, Jardiance ROS Cardiovascular- deny acute chest pain or shortness of breath or cough or palpitation Respiratory denies cough or short of breath or wheezing Musculoskeletal-denies acute joint swelling or tenderness or redness Neurological- denies acute dysarthria, dysphagia, change in vision Psychiatry- denies depression or SI or HI Skin- denies acute rash or purpura Review of Systems Allergies: Coded Allergies: Atorvastatin (Unverified Allergy, Unknown, 03/09/23) Patient states that her mouth and throat swell, and she gets generalized itching and hives Sulfamethoxazole w/Trimethoprim (Verified Allergy, Unknown, 05/24/20) Medications Current Medications Medications Dose Ordered Sig/Emilia Route Start Time Stop Time Status Last Admin Dose Admin Sodium Chloride 1,000 ml @ 120 mls/hr [id number] IV 02/23/25 19:00 UNV Docusate Sodium 100 mg BIDPRN PRN PO 02/23/25 19:00 UNV Enoxaparin Sodium 40 mg DAILY SC 02/24/25 10:00 UNV Pantoprazole Sodium 40 mg BID IV 02/23/25 19:15 UNV Sucralfate 1 gm QIDACHS PO 02/23/25 19:15 UNV Melatonin 10 mg HS PRN PO 02/23/25 19:15 UNV Exam Vital Signs Vital Signs Date Time Temp Pulse Resp B/P (MAP) Pulse Ox O2 Delivery O2 Flow Rate FiO2 02/23/25 16:17 98.5 99 20 152/84 (106) 99 98.5 Exam General examination- awake, alert, oriented HEENT- PEERLA, no acute nasal discharge Cardiovascular- S1-S2 audible, rate and rhythm regular, no murmur Respiratory- CTAB, no wheeze or rhonchi Gastrointestinal-epigastric tenderness+, bowel sound+. Nondistended Musculoskeletal-no acute joint swelling or tenderness or redness Lower extremity- no leg edema Neurological- cranial nerves intact, no acute dysarthria or dysphagia Psychiatry- denies depression or SI or HI Skin- no acute rash or purpura Labs/Xrays Labs Test 02/23/25 10:28 02/23/25 07:49 Range/Units Urine Color Light-yellow Yellow Urine Clarity Clear Clear Urine pH 5.5 5.0-9.0 Urine Specific [place] 1.022 1.001-1.035 Urine Protein 1+ H Negative Urine Ketones Negative Negative Urine Blood Negative Negative /uL Urine Nitrite Negative Negative Urine Bilirubin Negative Negative Urine Urobilinogen Normal Negative mg/dL Urine Leukocyte Esterase Negative Negative /uL Urine RBC 1 0 - 4 /hpf Urine Microscopic WBC 2 0-5 /HPF Urine Squamous Epithelial Cells Few <5 /hpf Urine Bacteria None seen None Seen /hpf Urine Mucus Few None Seen Urine Glucose 4+ H Normal mg/dL White Blood Count 8.7 4.4-10.8 10^3/uL Red Blood Count 5.24 H 4.0-5.20 10^6/uL Hemoglobin 15.0 12.2-16.2 g/dL Hematocrit 43.7 36.0-46.0 % Mean Corpuscular Volume 83.3 80.0-100.0 fL Mean Corpuscular Hemoglobin 28.7 28.0-32.0 pg Mean Corpuscular Hemoglobin Concent 34.4 32.0-36.0 g/dL Red Cell Distribution Width 13.7 11.8-14.3 % Platelet Count 387 140-450 10^3/uL Mean Platelet Volume 7.5 6.9-10.8 fL Neutrophils (%) (Auto) 62.7 37.0-80.0 % Lymphocytes (%) (Auto) 25.6 10.0-50.0 % Monocytes (%) (Auto) 8.0 0.0-12.0 % Eosinophils (%) (Auto) 2.9 0.0-7.0 % Basophils (%) (Auto) 0.8 0.0-2.0 % Neutrophils # (Auto) 5.4 1.6-8.6 10 ^3/uL Lymphocytes # (Auto) 2.2 0.4-5.4 10 ^3/uL Monocytes # (Auto) 0.7 0-1.3 10 ^3/uL Eosinophils # (Auto) 0.3 0-0.8 10 ^3/uL Basophils # (Auto) 0.1 0-0.2 10 ^3/uL Nucleated Red Blood Cells 0.1 % Sodium Level 136 136-145 mmol/L Potassium Level 4.0 3.5-5.1 mmol/L Chloride Level 100 98-107 mmol/L Carbon Dioxide Level 25 20-31 mmol/L Anion Gap 11 5-15 Blood Urea Nitrogen 10 9-23 mg/dL Creatinine 0.79 0.550-1.02 mg/dL Glomerular Filtration Rate Calc 92 >90 mL/min BUN/Creatinine Ratio 12.7 10.0-20.0 Serum Glucose 253 H 74-106 mg/dL Calcium Level 9.6 8.7-10.4 mg/dL Lipase 69 H 12-53 U/L SEPSIS Sepsis Screen Date sepsis recognized/suspect: Feb 23, 2025 Time Sepsis recognized/suspect: 0534 Recent Procedure: No On Antibiotic Therapy: No Respiratory Rate >20: No Heart Rate >90: No Temp<36 C (96.8 F) or >38.3 C: No SBP <90 or MAP <65 mmHG: No New Acute Mental Status Change: No Is the patient on CPAP, BIPAP,: No Physician Orders Ct Ab Pel With Iv Con Only (02/23/25 11:36) Admit (02/23/25 19:00) Allergies (02/23/25 19:00) Code Status (02/23/25 19:00) Full Liq Diet (02/24/25 Breakfast) Sodium Chloride 0.9% (02/23/25 19:00) Docusate Sodium Capsule (Colace Capsule) (02/23/25 19:00) Enoxaparin Sodium (Lovenox) (02/24/25 10:00) Complete Blood Count (02/24/25 04:00) Comprehensive Metabolic Panel (02/24/25 04:00) Stat Ekg For Chest Pain (02/23/25 19:00) Notify Of Changes From Base (02/23/25 19:00) Urine (02/23/25 ) Lactic Acid W/ Reflex Order (02/23/25 19:03) Beta-Hydroxybutyrate (02/23/25 19:03) Thyroid Stimulating Hormone (02/23/25 19:03) Pantoprazole (Protonix) (02/23/25 19:15) Sucralfate Tab (Carafate Tab) (02/23/25 19:15) Melatonin (Melatonin) (02/23/25 19:15) Insulin Lantus (Glargine) (Lantus) (02/24/25 07:00) Glucose Blood (Accu-Chek Comfort Curve T (02/23/25 22:00) Mild Sliding Scale (02/23/25 22:00) Dextrose 50% Syringe (02/23/25 19:15) Vital Signs Date Time Temp Pulse Resp B/P (MAP) Pulse Ox O2 Delivery O2 Flow Rate FiO2 02/23/25 16:17 98.5 99 20 152/84 (106) 99 98.5 02/23/25 11:58 72 16 133/72 02/23/25 11:28 77 18 156/77 Laboratory Tests Test 02/23/25 07:49 White Blood Count 8.7 10^3/uL (4.4-10.8) Medications Medications Dose Ordered Sig/Emilia Route Start Time Stop Time Status Last Admin Dose Admin Morphine Sulfate 4 mg ONCE ONCE IV 02/23/25 10:00 02/23/25 11:09 DC 02/23/25 11:28 4 MG Ondansetron HCl 4 mg ONCE ONCE IV 02/23/25 10:00 02/23/25 11:09 DC 02/23/25 11:24 4 MG Ondansetron HCl 4 mg ONCE ONCE IV 02/23/25 12:45 02/23/25 12:46 DC 02/23/25 12:53 4 MG Sodium Chloride 1,000 ml @ 1,000 mls/hr Q1H ONCE IV 02/23/25 10:00 02/23/25 11:09 DC 02/23/25 11:28 1,000 MLS/HR Assessment/Plan Assessment/Plan Assessment and plan # acute gastroenteritis/acute gastritis # intractable abdominal pain and nausea likely due to above # gastroparesis -CT abdominal pelvis revealed - Moderately sized sliding hiatal hernia with distal esophageal wall thickening and thickening of the gastroesophageal junction. Minimal sigmoid diverticulosis. -lipase 59 -ordered ceftriaxone IV and metronidazole IV -ordered pantoprazole 40 mg IV b.i.d. -ordered sucralfate 1 g p.o. q.6h -IV normal saline as prescribed # diabetes mellitus type 2 with the hypoglycemia -insulin sliding scale as prescribed -insulin Lantus as prescribed -monitor blood sugar level as per protocol # hypertension -monitor blood pressure ## minimal sigmoid diverticulosis -avoid constipation #Moderately sized sliding hiatal hernia with distal esophageal wall thickening and thickening of the gastroesophageal junction -continue current conservative management # spinal stenosis -continue current pain management # anxiety -continue current management Goals of care, Code status full code ; discussed with >15 minutes PUD prophylaxis: Pantoprazole DVT prophylaxis: Lovenox Plan discussed with Dr. Ramesh , nursing staff, Total time spent on patient evaluation, chart review, assessment and plan, discussion discussion >35 minutes Plan discussed with: Patient, Other (RN) My Orders Orders - ZULEIMA TAVERAS RESIDENT Procedure Category Date Status Time Admit ADMIT 02/23/25 Transmitted 19:00 Allergies EFREN 02/23/25 In Process 19:00 Code Status CODE 02/23/25 Transmitted 19:00 Full Liq Diet DIET 02/24/25 Transmitted Breakfast Sodium Chloride 0.9% PHA 02/23/25 Logged 19:00 Docusate Sodium PHA 02/23/25 Logged Capsule (Colace 19:00 Enoxaparin Sodium PHA 02/24/25 Logged (Lovenox) 10:00 Complete Blood Count LAB 02/24/25 Verified 04:00 Comprehensive LAB 02/24/25 Verified Metabolic Panel 04:00 Stat Ekg For Chest EFREN 02/23/25 In Process Pain 19:00 Notify Of Changes EFREN 02/23/25 In Process From Base 19:00 Urine ED NURSING 02/23/25 Transmitted Lactic Acid W/ Reflex LAB 02/23/25 Logged Order 19:03 Beta-Hydroxybutyrate LAB 02/23/25 Logged 19:03 Thyroid Stimulating LAB 02/23/25 Logged Hormone 19:03 Pantoprazole PHA 02/23/25 Logged (Protonix) 19:15 Sucralfate Tab PHA 02/23/25 Logged (Carafate Tab) 19:15 Melatonin (Melatonin) PHA 02/23/25 Logged 19:15 Insulin Lantus PHA 02/24/25 Transmitted (Glargine) (Lantus) 07:00 Glucose Blood PHA 02/23/25 Transmitted (Accu-Chek Comfort 22:00 Mild Sliding Scale PHA 02/23/25 Transmitted 22:00 Dextrose 50% Syringe PHA 02/23/25 Transmitted 19:15 Date of Service: Feb 23, 2025 Billing Provider: SEPIDEH ESQUIVEL MD Common Visit Codes: [id number] INP/OBS CARE (HIGH) Secondary Visit Codes: [id number] CARE PLAN 30 MINUTES SEPIDEH ESQUIVEL MD 03/05/25 1837: Review of Systems Allergies: Coded Allergies: Atorvastatin (Unverified Allergy, Unknown, 03/09/23) Patient states that her mouth and throat swell, and she gets generalized itching and hives Sulfamethoxazole w/Trimethoprim (Verified Allergy, Unknown, 05/24/20) Date of Service: Feb 23, 2025 Billing Provider: SEPIDEH ESQUIVEL MD Common Visit Codes: [id number] INP/OBS CARE (HIGH) Secondary Visit Codes: [id number] CARE PLAN 30 MINUTES ZULEIMA TAVERAS Feb 23, 2025 19:09 SEPIDEH ESQUIVEL MD Mar 05, 2025 18:37
[2025-02-23] MEDS ORDERED: DEXTROSE (50%) 50ML SYRG IV PRN (19:15)
[2025-02-23 19:54] LABS: Alanine Aminotransferase 31.0 U/L (7-40); Albumin 4.1 g/dL (3.2-4.8); Alkaline Phosphatase 96.0 U/L (46-116); Bilirubin, Direct 0.1 mg/dL (<0.3); Bilirubin, Total 0.5 mg/dL (0.2-1.0); Total Protein 7.1 g/dL (5.7-8.2)
[2025-02-23] MEDS: PANTOPRAZOLE 40 MG/10 ML VIAL INJ IV SCH (20:16)
[2025-02-23] MEDS: HYDROcodone-ACET 5/325MG TAB PO PRN (20:17)
[2025-02-23] MEDS: SUCRALFATE 1 GM TAB PO SCH (20:18)
[2025-02-23 20:27] LABS: Magnesium 1.5 mg/dL (1.6-2.6)
[2025-02-23 21:14] VITALS: PULSE 85; RESP 20; O2SAT 96
[2025-02-23] MEDS: ACCU-CHEK COMFORT CURVE STRIP VI SCH (22:00)
[2025-02-23 22:03] VITALS: BP 155/84; PULSE 109; RESP 17; TEMP 97.7; O2SAT 97
[2025-02-23 22:03] LABS: Opiate Scree,Urine Neg (NEGATIVE)
[2025-02-23 22:05] LABS: Amphetamine Screen, Urine Neg (NEGATIVE); Barbiturate Scree,Urine Neg (NEGATIVE); Benzodiazephine Screen, Urine Neg (NEGATIVE); Cannabinoid Screen, Urine Neg (NEGATIVE); Cocaine Screen, Urine Neg (NEGATIVE); Phencyclidine Screen, Urine Neg (NEGATIVE)
[2025-02-23] MEDS: InsuLIN REG 1unit/0.01ml Soln (100units/ml) SC SCH (23:11)
[2025-02-24] VITALS (9 sets, daily range): BP systolic 126–164; BP diastolic 74–90; PULSE 82–112; RESP 16–18; TEMP 98.1–99; O2SAT 94–98
[2025-02-24 04:21] LABS: Hematocrit 39.3 % (36.0-46.0); Hemoglobin 13.6 g/dL (12.2-16.2); Mean Corpuscular Hemoglobin 28.6 pg (28.0-32.0); Mean Corpuscular Volume 83.0 fL (80.0-100.0); Nucleated Red Blood Cells % 0.1 %
[2025-02-24 04:42] LABS: Alanine Aminotransferase 24 U/L (7-40); Albumin 3.7 g/dL (3.2-4.8); Alkaline Phosphatase 74 U/L (46-116); Anion Gap 9 (5-15); BUN/Creatinine Ratio 10.3 (10.0-20.0); Bilirubin, Total 0.5 mg/dL (0.2-1.0); Calcium 8.7 mg/dL (8.7-10.4); Carbon Dioxide 26 mmol/L (20-31); Chloride 105 mmol/L (98-107); Sodium 140 mmol/L (136-145); Total Protein 6.1 g/dL (5.7-8.2)
[2025-02-24 04:44] LABS: Blood Urea Nitrogen 7 mg/dL (9-23); Potassium 3.3 mmol/L (3.5-5.1)
[2025-02-24 04:53] LABS: Glucose 164 mg/dL (74-106)
[2025-02-24] MEDS: INSULIN LANTUS (GLARGINE) 1 /0.01ml (100units/ml) SC SCH (06:08)
[2025-02-24] MEDS: ENOXAPARIN SOD 40 MG/0.4 ML SYRINGE SC SCH (11:06)
[2025-02-24] MEDS: POTASSIUM EFFERVESENT TAB 25 MEQ GT ONE (11:07)
[2025-02-24] MEDS: ERGOCALCIFEROL 50,000 UNIT(1.25MG) CAP PO SCH (11:07)
--- NOTE | 2025-02-24 12:54 | DVHINCON2 ---
GI Consult Consult Note GI consult note Date of Consultation: 02/24/2025 Chief Complaint: Abdominal pain Referring Physician: Dr. Rivas H&P: 49-year-old female admitted with complains of epigastric abdominal pain radiating to her back for the past three days. Patient has similar symptoms on and off for the past 11 months, since patient was treated for Ozempic. Patient has had multiple hospitalization after being treated with Ozempic Patient has stopped taking this medication. Patient has nausea no vomiting. Patient has history of GERD for the last 11 months also. Denies hematemesis. Last bowel movement 10 minutes ago which was loose but denies melena or red blood in stool. DATE OF OPERATION: 09/02/23 PROCEDURE: Upper Endoscopy with biopsy. PREOPERATIVE INDICATION: The patient is a 48 -year-old female undergoing endoscopy for recurrent nausea vomiting and epigastric pain POSTOPERATIVE DIAGNOSES: 1. 4 cm sliding-type hiatal hernia with acute grade b erosive esophagitis at the GE junction with slight stricture from which biopsies were obtained 2. Mild antral gastritis otherwise normal examination up to the second and third part of the duodenum PROCEDURE PERFORMED BY: Amparo Duron Past Medical History: diabetes mellitus type 2, asthma, anxiety, spent stenosis Past Surgical History: Hernia repair Social History: NO smoking, drinking ETOH and use of illegal drugs. Family History: Noncontributory Review of Systems: Constitutional: no fever, chill, weight loss HEENT: no eye pain, no hearing loss, no oral lesion, no scleral icterus Heart: no chest pain, no chest pressure Lung: no cough, no dyspnea with exertion Abdomen: see HPI Physical exam: General: NAD, AAOX3 Chest: lung [place] clear to auscultation Heart: RRR, no murmur Abdomen: + moderate epigastric tenderness to palpation, +BS Labs: Labs Test 02/24/25 05:31 02/24/25 03:54 02/23/25 19:11 02/23/25 10:28 Range/Units POC Glucose 177 H 70-106 mg/dl White Blood Count 8.2 4.4-10.8 10^3/uL Red Blood Count 4.74 4.0-5.20 10^6/uL Hemoglobin 13.6 12.2-16.2 g/dL Hematocrit 39.3 # 36.0-46.0 % Mean Corpuscular Volume 83.0 80.0-100.0 fL Mean Corpuscular Hemoglobin 28.6 28.0-32.0 pg Mean Corpuscular Hemoglobin Concent 34.4 32.0-36.0 g/dL Red Cell Distribution Width 13.9 11.8-14.3 % Platelet Count 345 140-450 10^3/uL Mean Platelet Volume 7.4 6.9-10.8 fL Neutrophils (%) (Auto) 62.5 37.0-80.0 % Lymphocytes (%) (Auto) 24.7 10.0-50.0 % Monocytes (%) (Auto) 9.3 0.0-12.0 % Eosinophils (%) (Auto) 2.9 0.0-7.0 % Basophils (%) (Auto) 0.6 0.0-2.0 % Neutrophils # (Auto) 5.1 1.6-8.6 10 ^3/uL Lymphocytes # (Auto) 2.0 0.4-5.4 10 ^3/uL Monocytes # (Auto) 0.8 0-1.3 10 ^3/uL Eosinophils # (Auto) 0.2 0-0.8 10 ^3/uL Basophils # (Auto) 0.1 0-0.2 10 ^3/uL Nucleated Red Blood Cells 0.1 % Sodium Level 140 136-145 mmol/L Potassium Level 3.3 L 3.5-5.1 mmol/L Chloride Level 105 98-107 mmol/L Carbon Dioxide Level 26 20-31 mmol/L Anion Gap 9 5-15 Blood Urea Nitrogen 7 L 9-23 mg/dL Creatinine 0.68 0.550-1.02 mg/dL Glomerular Filtration Rate Calc 107 >90 mL/min BUN/Creatinine Ratio 10.3 10.0-20.0 Serum Glucose 164 H 74-106 mg/dL Calcium Level 8.7 8.7-10.4 mg/dL Total Bilirubin 0.5 0.2-1.0 mg/dL Aspartate Amino Transferase (AST) 21 13-40 U/L Alanine Aminotransferase (ALT) 24 7-40 U/L Alkaline Phosphatase 74 46-116 U/L Total Protein 6.1 5.7-8.2 g/dL Albumin 3.7 3.2-4.8 g/dL Hemoglobin A1c 11.3 H <5.7 % A1C Lactic Acid Level 1.2 0.4-2.0 mmol/L Vitamin B12 Level 513 211-911 pg/mL Vitamin D 25-Hydroxy 18.8 L 30.0-100 ng/mL Folic Acid 32.37 >5.38 ng/mL Beta-Hydroxybutyric Acid 0.296 < 0.4 mmol/L Thyroid Stimulating Hormone (TSH) 0.72 0.55-4.78 uIU/mL Urine Color Light-yellow Yellow Urine Clarity Clear Clear Urine pH 5.5 5.0-9.0 Urine Specific [place] 1.022 1.001-1.035 Urine Protein 1+ H Negative Urine Ketones Negative Negative Urine Blood Negative Negative /uL Urine Nitrite Negative Negative Urine Bilirubin Negative Negative Urine Urobilinogen Normal Negative mg/dL Urine Leukocyte Esterase Negative Negative /uL Urine RBC 1 0 - 4 /hpf Urine Microscopic WBC 2 0-5 /HPF Urine Squamous Epithelial Cells Few <5 /hpf Urine Bacteria None seen None Seen /hpf Urine Mucus Few None Seen Urine Glucose 4+ H Normal mg/dL Urine Opiates Screen Neg NEGATIVE Urine Fentanyl Screen Neg NEGATIVE Urine Barbiturates Screen Neg NEGATIVE Urine Phencyclidine Screen Neg NEGATIVE Urine Amphetamines Screen Neg NEGATIVE Urine Benzodiazepines Screen Neg NEGATIVE Urine Cocaine Screen Neg NEGATIVE Urine Cannabinoids Screen Neg NEGATIVE Test 02/23/25 07:49 Range/Units Magnesium Level 1.5 L 1.6-2.6 mg/dL Direct Bilirubin 0.1 <0.3 mg/dL Lipase 69 H 12-53 U/L Imaging: CT abdomen pelvis IMPRESSION: 1. No CT evidence of an acute abdominal/pelvic process. 2. Moderately sized sliding hiatal hernia with distal esophageal wall thickening and thickening of the gastroesophageal junction. 3. Correlate for reflux/gastritis. 4. Minimal sigmoid diverticulosis. Assessment: Abdominal pain Hiatal hernia History of gastric History of GERD Plan: Discussed with Dr. Duron - Pt will be scheduled for an EGD today 02/24/2025. Pt was informed of the risks (bleeding, infection, perforation, reaction to sedation medications and cardiopulmonary arrest) and benefit and is agreeable to undergo the procedures. Further recommendations to follow above Discussed plan with patient and RN Thank you for this consult Date of Service: Feb 24, 2025 Billing Provider: ZION SHAVER Common Visit Codes: CONSULT ONLY Consultation Codes: [id number] CONSULT <60MIN ZION SHAVER Feb 24, 2025 12:54
[2025-02-24 13:37] LABS: INR 1.05 (0.9-1.15); Prothrombin Time 11.1 sec (9.3-11.8)
[2025-02-24] MEDS: MAGNESIUM SULFATE 1GM/100ML 200 ML IV ONE (13:57)
--- NOTE | 2025-02-24 16:46 | DVHPNRES ---
Progress Note Date Seen: Feb 24, 2025 Resident Creating Document: ZULEIMA TAVERAS RESIDENT Medical Necessity Reason Pt with a Central, PICC or Fol: No Subjective Review of Systems Patient is 49 years old female with past medical history of hypertension, diabetes mellitus type 2, asthma, anxiety, spinal stenosis came with a complaint of abdominal pain for 3 days. As per patient she has been having epigastric pain started 3 days ago, initially intermittent now continuous for last 1 day, severity 10/10, pressure-like, radiating to the back, associated with the nausea but no vomiting. Patient also endorsed diarrhea 3 times in the last couple of days, no blood. Patient denied any fever, dysuria, acute joint redness or swelling, chest pain or shortness of breaths. Initial lab workup revealed blood sugar 253, lipase 59, CT abdominal pelvis revealed - Moderately sized sliding hiatal hernia with distal esophageal wall thickening and thickening of the gastroesophageal junction. Minimal sigmoid diverticulosis. PMH-hypertension, diabetes mellitus type 2, asthma, anxiety, spent stenosis PSH- hernia repair Allergy- atorvastatin, sulfamethoxazole with trimethoprim Personal History/ Social History- denies smoking/alcoholism/drug abuse Home medications-insulin glargine, metformin, pantoprazole, gabapentin, Jardiance ROS Cardiovascular- deny acute chest pain or shortness of breath or cough or palpitation Respiratory denies cough or short of breath or wheezing Musculoskeletal-denies acute joint swelling or tenderness or redness Neurological- denies acute dysarthria, dysphagia, change in vision Psychiatry- denies depression or SI or HI Skin- denies acute rash or purpura Patient was seen today at bedside. Labs and chart reviewed. Patient reported feeling better today. Hypokalemia replenished. Hypomagnesemia replenished. Objective vital signs Vital Sign Date Time Temp Pulse Resp B/P (MAP) Pulse Ox O2 Delivery O2 Flow Rate FiO2 02/24/25 13:00 98.1 82 16 155/84 (107) 96 98.1 02/24/25 08:00 Room Air* 0 21 Total Intake and Output 02/23/25 02/23/25 02/24/25 15:00 23:00 07:00 Intake Total 1000 ml 800 ml Balance 1000 ml 800 ml medications Current Medications Medications Dose Ordered Sig/Emilia Route Start Time Stop Time Status Last Admin Dose Admin Docusate Sodium 100 mg BIDPRN PRN PO 02/23/25 19:00 Enoxaparin Sodium 40 mg DAILY SC 02/24/25 10:00 02/24/25 11:06 40 MG Pantoprazole Sodium 40 mg BID IV 02/23/25 19:15 02/24/25 11:05 40 MG Sucralfate 1 gm QIDACHS PO 02/23/25 19:15 02/24/25 11:07 1 GM Melatonin 10 mg HS PRN PO 02/23/25 19:15 Insulin Glargine 25 units QAM SC 02/24/25 07:00 02/24/25 06:08 25 UNITS Diagnostic Test (Pha) 1 strip ACHS 02/23/25 22:00 02/24/25 11:30 1 STRIP Insulin Human Regular ACHS SC 02/23/25 22:00 02/24/25 12:39 4 UNITS Dextrose 50 ml UD PRN IV 02/23/25 19:15 Acetaminophen/ Hydrocodone Bitart 1 tab Q6HPRN PRN PO 02/23/25 19:15 02/24/25 06:09 1 TAB Ergocalciferol 50,000 unit Q7D PO 02/24/25 07:45 02/24/25 11:07 50,000 UNIT Ceftriaxone Sodium 50 ml @ 100 mls/hr DAILY@0900 IV 02/24/25 07:45 02/24/25 11:07 100 MLS/HR Metronidazole 100 ml @ 100 mls/hr Q8HR IV 02/24/25 07:45 02/24/25 13:40 100 MLS/HR Examination General examination- awake, alert, oriented HEENT- PEERLA, no acute nasal discharge Cardiovascular- S1-S2 audible, rate and rhythm regular, no murmur Respiratory- CTAB, no wheeze or rhonchi Gastrointestinal-epigastric tenderness+, bowel sound+. Nondistended Musculoskeletal-no acute joint swelling or tenderness or redness Lower extremity- no leg edema Neurological- cranial nerves intact, no acute dysarthria or dysphagia Psychiatry- denies depression or SI or HI Skin- no acute rash or purpura laboratory and microbiology Laboratory Tests 02/24/25 03:54 Test 02/24/25 03:54 Range/Units Serum Glucose 164 H 74-106 mg/dL Problem List/Assessment/Plan Problem List/Assessment/Plan Assessment and plan # acute gastroenteritis likely infectious #acute gastritis # intractable abdominal pain and nausea likely due to above # gastroparesis -CT abdominal pelvis revealed - Moderately sized sliding hiatal hernia with distal esophageal wall thickening and thickening of the gastroesophageal junction. Minimal sigmoid diverticulosis. -lipase 59 -continue ceftriaxone IV and metronidazole IV -continue pantoprazole 40 mg IV b.i.d. -continue sucralfate 1 g p.o. q.6h # diabetes mellitus type 2 with the hyperglycemia -insulin sliding scale as prescribed -insulin Lantus as prescribed -monitor blood sugar level as per protocol # hypokalemia replenished -monitor BMP # hypertension -monitor blood pressure ## minimal sigmoid diverticulosis -avoid constipation #Moderately sized sliding hiatal hernia with distal esophageal wall thickening and thickening of the gastroesophageal junction -continue current conservative management # spinal stenosis -continue current pain management # anxiety -continue current management Goals of care, Code status full code ; discussed with >15 minutes PUD prophylaxis: Pantoprazole DVT prophylaxis: Lovenox Plan discussed with Dr. Ramesh , nursing staff, Total time spent on patient evaluation, chart review, assessment and plan, discussion discussion >35 minutes Plan discussed with: Patient, Other (RN) Plan discussed with: Patient, Other (RN) My Orders My Orders Orders - ZULEIMA TAVERAS RESIDENT Procedure Category Date Status Time Admit ADMIT 02/23/25 Transmitted 19:00 Allergies EFREN 02/23/25 In Process 19:00 Code Status CODE 02/23/25 Transmitted 19:00 Docusate Sodium PHA 02/23/25 In Process Capsule (Colace 19:00 Enoxaparin Sodium PHA 02/24/25 In Process (Lovenox) 10:00 Stat Ekg For Chest EFREN 02/23/25 In Process Pain 19:00 Notify Of Changes EFREN 02/23/25 In Process From Base 19:00 Urine ED NURSING 02/23/25 Transmitted Pantoprazole PHA 02/23/25 In Process (Protonix) 19:15 Sucralfate Tab PHA 02/23/25 In Process (Carafate Tab) 19:15 Melatonin (Melatonin) PHA 02/23/25 In Process 19:15 Insulin Lantus PHA 02/24/25 In Process (Glargine) (Lantus) 07:00 Glucose Blood PHA 02/23/25 In Process (Accu-Chek Comfort 22:00 Insulin R (Human) PHA 02/23/25 In Process (Insulin R) 22:00 Dextrose 50% Syringe PHA 02/23/25 In Process 19:15 Hydrocodone-Acet PHA 02/23/25 In Process 5/325mg Tab ([place] 19:15 Communication Order ORDERS 02/23/25 Transmitted 19:47 Ergocalciferol PHA 02/24/25 In Process (Vitamin D 50,000 07:45 Ceftriaxone 1gm/50ml PHA 02/24/25 In Process (Rocephin) 07:45 Metronidazole PHA 02/24/25 In Process 500mg/100ml (Flagyl 07:45 * [facility] Manager Information CONS 02/24/25 Transmitted 11:02 Date of Service: Feb 24, 2025 Billing Provider: SEPIDEH ESQUIVEL MD Common Visit Codes: [id number] INP/OBS CARE(HIGH) ZULEIMA TAVERAS RESIDENT Feb 24, 2025 16:46 SEPIDEH ESQUIVEL MD Mar 05, 2025 18:10
[2025-02-24] MEDS: LIDOCAINE VISCOUS 2% 15ML UD ONE (17:06)
[2025-02-24] MEDS: MIDAZOLAM HCL 2MG/2ML 2ml VIAL (1mg/ml) ONE (17:11)
[2025-02-24] MEDS: diphenhdrAMINE HCL 50 MG/1 ML VL ONE (17:11)
[2025-02-24] MEDS: fentaNYL CITRATE 100 MCG/2 ML VL ONE (17:11)
--- NOTE | 2025-02-24 17:41 | DVHOP2 ---
Operative Report DATE OF OPERATION: 02/24/25 PROCEDURE: Upper Endoscopy with biopsy. PREOPERATIVE INDICATION: The patient is a 49 -year-old female undergoing endoscopy for abdominal pain and GERD POSTOPERATIVE DIAGNOSES: 1. 2-3 cm sliding-type hiatal hernia with slightly irregular squamocolumnar junction minimal grade a erosive esophagitis 2. Linear gastric erosions in the proximal stomach near the diaphragmatic impingement and also linear antral gastritis PROCEDURE PERFORMED BY: Rod Duron GI NURSE: Mily SCOPE: Olympus videoendoscope. ASA CLASS: 2. PREOPERATIVE MEDICATIONS: Versed 5 mg, Fentanyl 100 mcg, Benadryl 50 mg I administered moderate sedation throughout this _10_ minutes procedure. An independent trained observer pushed medications at my direction, and monitored the patient's level of consciousness and physiological status throughout. PROCEDURE IN DETAIL: After obtaining an informed consent, the patient was placed on left lateral decubitus position. The patient was then sedated with the above medications. A bite block was placed between her teeth. The endoscope was then passed through the oropharynx, into the esophagus, and through the stomach and pylorus up to the second and third part of the duodenum. The endoscope was then withdrawn. The 2nd and 3rd part of the duodenum and the duodenal bulb were normal. Duodenal biopsies were obtained The pre-pyloric area showed linear antral gastritis. Antral gastric biopsies were obtained. On retroflexion the patient also had linear gastric erosions in the proximal st omach near the cardia and biopsies were obtained The endoscope was then withdrawn into distal esophagus where she had a 3 cm sl iding-type hiatal hernia with slightly irregular squamocolumnar junction minimal grade a erosive esophagitis GE junction biopsies were obtained. The remaining distal and proximal esophagus and oropharynx were unremarkable The patient tolerated the procedure well without difficulty. COMPLICATIONS : None SPECIMENS: Duodenal biopsies Gastric biopsies GE junction biopsies DISPOSITION: Transfer back to the floor Stable PLAN: 1. Await for biopsy result 2. Will place pt on Protonix 40 mg bid 3. DC aspirin NSAIDs smoking alcohol 4. Carafate 1 g p.o. twice a day 5. Resume GI soft diet advance as tolerated 6. Outpatient follow up with me in 2-4 weeks to review results and discuss further management ROD DURON MD Feb 24, 2025 17:41
[2025-02-24] MEDS: MAGNESIUM SULFATE 1GM/100ML 100 ML IV SCH (18:30)
[2025-02-24] MEDS ORDERED: hydrALAZINE HCL 20 MG/ML VL IV PRN (18:30)
[2025-02-25 01:00] VITALS: BP 129/61; PULSE 75; RESP 17; TEMP 98.1; O2SAT 95
[2025-02-25] MEDS: MELATONIN 5 MG TAB PO PRN (02:12)
[2025-02-25 05:00] VITALS: BP 135/68; PULSE 78; RESP 16; TEMP 98.4; O2SAT 96
[2025-02-25 09:00] VITALS: BP 133/80; PULSE 81; RESP 19; TEMP 98.6; O2SAT 96
--- NOTE | 2025-02-25 09:30 | DVHDSRES ---
Discharge Summary Date of Admission Resident Creating Document: ZULEIMA TAVERAS Feb 23, 2025 at 19:00 Date of Discharge: Feb 25, 2025 Admitting Diagnosis Acute gastritis/acute gastroenteritis likely infectious Labs/Diagnostic Data: Laboratory Results Test 02/25/25 06:43 02/24/25 12:54 02/24/25 03:54 02/23/25 19:11 POC Glucose 194 mg/dl (70-106) Prothrombin Time 11.1 sec (9.3-11.8) Prothrombin Time INR 1.05 (0.9-1.15) White Blood Count 8.2 10^3/uL (4.4-10.8) Red Blood Count 4.74 10^6/uL (4.0-5.20) Hemoglobin 13.6 g/dL (12.2-16.2) Hematocrit 39.3 % (36.0-46.0) Mean Corpuscular Volume 83.0 fL (80.0-100.0) Mean Corpuscular Hemoglobin 28.6 pg (28.0-32.0) Mean Corpuscular Hemoglobin Concent 34.4 g/dL (32.0-36.0) Red Cell Distribution Width 13.9 % (11.8-14.3) Platelet Count 345 10^3/uL (140-450) Mean Platelet Volume 7.4 fL (6.9-10.8) Neutrophils (%) (Auto) 62.5 % (37.0-80.0) Lymphocytes (%) (Auto) 24.7 % (10.0-50.0) Monocytes (%) (Auto) 9.3 % (0.0-12.0) Eosinophils (%) (Auto) 2.9 % (0.0-7.0) Basophils (%) (Auto) 0.6 % (0.0-2.0) Neutrophils # (Auto) 5.1 10 ^3/uL (1.6-8.6) Lymphocytes # (Auto) 2.0 10 ^3/uL (0.4-5.4) Monocytes # (Auto) 0.8 10 ^3/uL (0-1.3) Eosinophils # (Auto) 0.2 10 ^3/uL (0-0.8) Basophils # (Auto) 0.1 10 ^3/uL (0-0.2) Nucleated Red Blood Cells 0.1 % Sodium Level 140 mmol/L (136-145) Potassium Level 3.3 mmol/L (3.5-5.1) Chloride Level 105 mmol/L (98-107) Carbon Dioxide Level 26 mmol/L (20-31) Anion Gap 9 (5-15) Blood Urea Nitrogen 7 mg/dL (9-23) Creatinine 0.68 mg/dL (0.550-1.02) Glomerular Filtration Rate Calc 107 mL/min (>90) BUN/Creatinine Ratio 10.3 (10.0-20.0) Serum Glucose 164 mg/dL (74-106) Calcium Level 8.7 mg/dL (8.7-10.4) Total Bilirubin 0.5 mg/dL (0.2-1.0) Aspartate Amino Transferase (AST) 21 U/L (13-40) Alanine Aminotransferase (ALT) 24 U/L (7-40) Alkaline Phosphatase 74 U/L (46-116) Total Protein 6.1 g/dL (5.7-8.2) Albumin 3.7 g/dL (3.2-4.8) Beta HCG, Quantitative 0.1 mIU/mL (1.5-4.2) Hemoglobin A1c 11.3 % A1C (<5.7) Lactic Acid Level 1.2 mmol/L (0.4-2.0) Vitamin B12 Level 513 pg/mL (211-911) Vitamin D 25-Hydroxy 18.8 ng/mL (30.0-100) Folic Acid 32.37 ng/mL (>5.38) Beta-Hydroxybutyric Acid 0.296 mmol/L (< 0.4) Thyroid Stimulating Hormone (TSH) 0.72 uIU/mL (0.55-4.78) Test 02/23/25 10:28 02/23/25 07:49 Urine Color Light-yellow (Yellow) Urine Clarity Clear (Clear) Urine pH 5.5 (5.0-9.0) Urine Specific [place] 1.022 (1.001-1.035) Urine Protein 1+ (Negative) Urine Ketones Negative (Negative) Urine Blood Negative /uL (Negative) Urine Nitrite Negative (Negative) Urine Bilirubin Negative (Negative) Urine Urobilinogen Normal mg/dL (Negative) Urine Leukocyte Esterase Negative /uL (Negative) Urine RBC 1 /hpf (0 - 4) Urine Microscopic WBC 2 /HPF (0-5) Urine Squamous Epithelial Cells Few /hpf (<5) Urine Bacteria None seen /hpf (None Seen) Urine Mucus Few (None Seen) Urine Glucose 4+ mg/dL (Normal) Urine Opiates Screen Neg (NEGATIVE) Urine Fentanyl Screen Neg (NEGATIVE) Urine Barbiturates Screen Neg (NEGATIVE) Urine Phencyclidine Screen Neg (NEGATIVE) Urine Amphetamines Screen Neg (NEGATIVE) Urine Benzodiazepines Screen Neg (NEGATIVE) Urine Cocaine Screen Neg (NEGATIVE) Urine Cannabinoids Screen Neg (NEGATIVE) Magnesium Level 1.5 mg/dL (1.6-2.6) Direct Bilirubin 0.1 mg/dL (<0.3) Lipase 69 U/L (12-53) Other Laboratory Tests 02/24/25 03:54 Brief Hx & Hospital Course: Patient is 49 years old female with past medical history of hypertension, diabetes mellitus type 2, asthma, anxiety, spinal stenosis came with a complaint of abdominal pain for 3 days. As per patient she has been having epigastric pain started 3 days ago, initially intermittent now continuous for last 1 day, severity 10/10, pressure-like, radiating to the back, associated with the nausea but no vomiting. Patient also endorsed diarrhea 3 times in the last couple of days, no blood. Patient denied any fever, dysuria, acute joint redness or swelling, chest pain or shortness of breaths. Initial lab workup revealed blood sugar 253, lipase 59, CT abdominal pelvis revealed - Moderately sized sliding hiatal hernia with distal esophageal wall thickening and thickening of the gastroesophageal junction. Minimal sigmoid diverticulosis. Hospital course-during hospital course patient was treated conservatively with the IV antibiotic and pantoprazole and sucralfate. Patient was seen by financial data analyst and had endoscopy done. Endoscopy revealed-1. 2-3 cm sliding-type hiatal hernia with slightly irregular squamocolumnar junction minimal grade a erosive esophagitis. Linear gastric erosions in the proximal stomach near the diaphragmatic impingement and also linear antral gastritis. Patient's symptoms improved with conservative management. Patient is discharged home with the Augmentin 500 mg p.o. b.i.d. for 5 days, Reglan 10 mg p.o. t.i.d. for 5 days and PRN, pantoprazole 40 mg p.o. daily, sucralfate 1 g p.o. b.i.d. Lantus 25 units subcutaneously q.a.m., metformin 1000 mg p.o. b.i.d. patient's meds were sent to the pharmacy electronically. Patient was advised to follow up with the primary care physician in 1-2 weeks, patient was also advised to follow up with financial data analyst Dr. Duron in 1-2 weeks for further evaluation and care. Patient was advised to avoid caffeine, trachomatis was, NSAIDs or aspirin. Patient's meds were sent to the pharmacy electronically Assessment and plan # acute gastroenteritis likely infectious #acute gastritis # intractable abdominal pain and nausea likely due to above ## hiatal hernia # gastroparesis # amlodipine 5 mg p.o. daily # diabetes mellitus type 2 with the hyperglycemia # hypokalemia replenished # hypertension # minimal sigmoid diverticulosis #Moderately sized sliding hiatal hernia with distal esophageal wall thickening and thickening of the gastroesophageal junction # spinal stenosis # anxiety # obesity Plan Continue pantoprazole 40 mg p.o. daily Continue sucralfate 1 g p.o. b.i.d. Augmentin 500 mg p.o. b.i.d. for 3 days Metformin 1000 mg p.o. b.i.d. Insulin Lantus 25 units q.a.m. subcutaneously Resume other home medications Please follow up with the primary care physician in 1-2 weeks Please follow up with the financial data analyst Dr. Duron in 1-2 weeks for further evaluation and care Please avoid caffeine, tomato sauce, avoid NSAIDs and aspirin Consults/Reason for consult Patient: CHRISTOPHER MENDOZA Acct: [id number] : 1975 Loc: [facility] Age/Sex: 49/F Room: [facility] / Bed: Attending Phy: ZULEIMA TAVERAS RESIDENT Operative Report DATE OF OPERATION: 02/24/25 PROCEDURE: Upper Endoscopy with biopsy. PREOPERATIVE INDICATION: The patient is a 49 -year-old female undergoing endoscopy for abdominal pain and GERD POSTOPERATIVE DIAGNOSES: 1. 2-3 cm sliding-type hiatal hernia with slightly irregular squamocolumnar junction minimal grade a erosive esophagitis 2. Linear gastric erosions in the proximal stomach near the diaphragmatic impingement and also linear antral gastritis PROCEDURE PERFORMED BY: Rod Duron GI NURSE: Mily SCOPE: Olympus videoendoscope. ASA CLASS: 2. PREOPERATIVE MEDICATIONS: Versed 5 mg, Fentanyl 100 mcg, Benadryl 50 mg I administered moderate sedation throughout this _10_ minutes procedure. An independent trained observer pushed medications at my direction, and monitored the patient's level of consciousness and physiological status throughout. PROCEDURE IN DETAIL: After obtaining an informed consent, the patient was placed on left lateral decubitus position. The patient was then sedated with the above medications. A bite block was placed between her teeth. The endoscope was then passed through the oropharynx, into the esophagus, and through the stomach and pylorus up to the second and third part of the duodenum. The endoscope was then withdrawn. The 2nd and 3rd part of the duodenum and the duodenal bulb were normal. Duodenal biopsies were obtained The pre-pyloric area showed linear antral gastritis. Antral gastric biopsies were obtained. On retroflexion the patient also had linear gastric erosions in the proximal stomach near the cardia and biopsies were obtained The endoscope was then withdrawn into distal esophagus where she had a 3 cm sliding-type hiatal hernia with slightly irregular squamocolumnar junction minimal grade a erosive esophagitis GE junction biopsies were obtained. The remaining distal and proximal esophagus and oropharynx were unremarkable The patient tolerated the procedure well without difficulty. COMPLICATIONS : None SPECIMENS: Duodenal biopsies Gastric biopsies GE junction biopsies DISPOSITION: Transfer back to the floor Stable PLAN: 1. Await for biopsy result 2. Will place pt on Protonix 40 mg bid 3. DC aspirin NSAIDs smoking alcohol 4. Carafate 1 g p.o. twice a day 5. Resume GI soft diet advance as tolerated 6. Outpatient follow up with me in 2-4 weeks to review results and discuss further management ROD DURON MD Feb 24, 2025 17:41 DICTATED BY:ROD DURON MD DICTATED DATE/TIME:02/24/251740 ELECTRONICALLY SIGNED BY:ROD DURON MD 02/24/251740 ELECTRONICALLY CO-SIGNED BY: Condition at Discharge: Stable Final Diagnosis/Problems List # acute gastroenteritis likely infectious #acute gastritis # intractable abdominal pain and nausea likely due to above ## hiatal hernia # gastroparesis # amlodipine 5 mg p.o. daily # diabetes mellitus type 2 with the hyperglycemia # hypokalemia replenished # hypertension # minimal sigmoid diverticulosis #Moderately sized sliding hiatal hernia with distal esophageal wall thickening and thickening of the gastroesophageal junction # spinal stenosis # anxiety # obesity Discharge Disposition: Home Discharge Instruct/Medications Diet: Consistent carbohydrate, Cardiac 2g Na,low cholest Scheduled Beclomethasone Dipropionate (Qvar Redihaler), 2 PUFF INH DAILY, (Reported) Benzonatate (Benzonatate), 1 CAP PO TIDP Ergocalciferol (Vitamin D 22120 Unit), 50,000 UNIT PO Q7D Gabapentin (Gabapentin), 300 MG PO BID Insulin Glargine (Lantus), 25 UNIT SC QAM Levofloxacin Hemihydrate (Levofloxacin), 1 TAB PO DAILY Lidocaine (Lidoderm 5% Topical Patch), 1 PATCH TOP DAILY Metformin Hydrochloride (Metformin Hcl), 1 TAB PO BID Methocarbamol (Methocarbamol), 750 MG PO BID Metoclopramide Hcl (Reglan), 10 MG PO TID Metronidazole (Metronidazole), 500 MG PO TID Ondansetron HCl (Ondansetron Hydrochloride), 1 TAB PO DAILY, (Reported) Pantoprazole Sodium Sesquihydr (Pantoprazole Sodium), 40 MG PO DAILY Sucralfate (Sucralfate), 1 GM PO QID Valacyclovir Hcl (Valtrex), 1 TAB PO TID Scheduled PRN Amitriptyline Hcl (Amitriptyline Hcl), 1 TAB PO QHSP PRN Oxycodone W/ Acetaminophen (Percocet 5/325MG), 1 TAB PO TID PRN for PAIN SCALE 7 THRU 10, (Reported) Phenazopyridine HCl (Phenazopyridine Hydrochol), 200 MG PO TID PRN Discontinued Medications Cephalexin (Keflex Capsule), 500 MG PO BID Cephalexin Monohydrate (Cephalexin), 1 CAP PO QID Cholecalciferol (Vitamin D3), 1 TAB PO DAILY, (Reported) Ciprofloxacin Hcl (Cipro), 1 TAB PO BID Dexlansoprazole (Dexlansoprazole), 1 TAB PO DAILY, (Reported) Dicyclomine Hcl (Bentyl Capsule), 1 CAP PO TID PRN Discontinued Reason: Auto Discontinued Docusate Sodium (Docusate Sodium), 1 CAP PO DAILY, (Reported) Methylprednisolone (Medrol Dosepak), 4 MG PO UD Metoclopramide Hcl (Reglan), 10 MG PO TIDBM PRN Ondansetron Odt 4MG Tab (Zofran Po), 4 MG PO TID PRN Pantoprazole Sodium Sesquihydr (Pantoprazole Sodium), 40 MG PO BID Pantoprazole Sodium Sesquihydr (Pantoprazole Sodium), 40 MG PO DAILY Sucralfate (Carafate), 1 GM PO BID Discharge Statement: "Patient was advised to return to the ER or call 911 if any headaches, dizziness, shortness of breath, chest pain, abdominal pain, bleeding, fevers, or worsening of medical condition. Patient was counseled about treatment plan, medications, possible side effects, patientverbalized understanding. All questions were answered to the best of my ability. This discharge took greater then 30 minutes in planning, reviewing documentation, counseling the patient, and discussing with other team members." ASSESSMENT ASSESSMENT Assessment Date of Service: Feb 25, 2025 Billing Provider: SEPIDEH ESQUIVEL MD Common Visit Codes: 31785-AXW/OBS DISCH DAY >30min ZULEIMA TAVERAS Feb 25, 2025 09:30 SEPIDEH ESQUIVEL MD Mar 05, 2025 19:03
[2025-02-25] MEDS ORDERED: DICY10CA PO ×2 (09:36)
[2025-02-25] MEDS ORDERED: SUCR1TAB31 PO ×2 (09:36)
[2025-02-25] MEDS ORDERED: PANT40T PO ×2 (09:36)
[2025-02-25 09:46] LABS: Chloride 105 mmol/L (98-107); Potassium 3.6 mmol/L (3.5-5.1); Sodium 137 mmol/L (136-145)
[2025-02-25 09:47] LABS: Anion Gap 8 (5-15); Carbon Dioxide 24 mmol/L (20-31)
[2025-02-25 09:48] LABS: Calcium 8.3 mg/dL (8.7-10.4)
[2025-02-25 09:52] LABS: BUN/Creatinine Ratio 11.6 (10.0-20.0)
[2025-02-25 09:53] LABS: Blood Urea Nitrogen 8 mg/dL (9-23); Glucose 295 mg/dL (74-106)
[2025-02-25 11:12] VITALS: BP 133/80; PULSE 81; RESP 19; TEMP 98.5; O2SAT 96
[2025-02-25] MEDS ORDERED: METO-281 PO ×4 (11:32)
--- NOTE | 2025-02-25 14:57 | DVHPN2 ---
Progress Note - Dictate Date Seen: Feb 25, 2025 (Late entryPatient seen at 10:00 a.m.) Medical Necessity Reason Pt with a Central, PICC or Fol: No Subjective No new complaints Patient is sitting out of bed to chair Tolerating diet EGD findings of GERD and gastritis were discussed with the patient Patient had been taking NSAIDs and she was advised to discontinue aspirin NSAIDs vital signs Vital Sign Date Time Temp Pulse Resp B/P (MAP) Pulse Ox O2 Delivery O2 Flow Rate FiO2 02/25/25 11:12 98.5 81 19 96 02/25/25 09:00 133/80 (97) 02/25/25 08:00 Room Air* 0 21 Total Intake and Output 02/24/25 02/24/25 02/25/25 15:00 23:00 07:00 Intake Total 150 ml 1550 ml Balance 150 ml 1550 ml objective General: NAD, AAOX3 Chest: lung [place] clear to auscultation Heart: RRR, no murmur Abdomen: Soft obese nontender nondistended Extremities without clubbing cyanosis or edema Neuro alert oriented x3 with no focal deficit laboratory and microbiology Laboratory Tests 02/25/25 09:13 02/24/25 03:54 Test 02/25/25 09:13 Range/Units Serum Glucose 295 H 74-106 mg/dL Problems(with codes): (1) Gastritis and duodenitis (2) Intractable abdominal pain (3) Epigastric pain (4) Hiatal hernia (5) N&V (nausea and vomiting) Prognosis Plan Advance diet as tolerated Protonix 40 mg p.o. twice a day Carafate 1 g p.o. twice a day Discharge planning is in progress Patient will follow up in my office in 4-6 weeks to review results discuss further management and schedule outpatient elective screening colonoscopy Plan discussed with: Patient ROD TOVAR MD Feb 25, 2025 14:57
[2025-03-03] MEDS ORDERED: MET500T PO ×2 (16:48)
[2025-03-03] MEDS ORDERED: LEVO500T91 PO ×2 (16:48)
[2025-03-03] MEDS ORDERED: ERGO1CAP23 PO ×2 (16:48)
== END 2025-03-03 16:45 | disposition home or self-care (01) | DRG 391 ==
LOC: ER 05:33 → OVERFLOW 19:00 → EAST 21:55
PROVIDERS: ADMIT Student in an Organized Health Care Education/Training Program; ATTEND Student in an Organized Health Care Education/Training Program
PROC: 0DB68ZX Excision of Stomach, Via Natural or Artificial Opening Endoscopic, Diagnostic (ICD-10-PCS; 2025-02-24)
PROC: 0DB48ZX Excision of Esophagogastric Junction, Via Natural or Artificial Opening Endoscopic, Diagnostic (ICD-10-PCS; 2025-02-24)
PROC: 0DB98ZX Excision of Duodenum, Via Natural or Artificial Opening Endoscopic, Diagnostic (ICD-10-PCS; principal; 2025-02-24 17:06)
DX: A09 Infectious gastroenteritis and colitis, unspecified (principal); U07.1 COVID-19; K22.10 Ulcer of esophagus without bleeding; K29.00 Acute gastritis without bleeding; K57.30 Diverticulosis of large intestine without perforation or abscess without bleeding; E11.649 Type 2 diabetes mellitus with hypoglycemia without coma; E11.43 Type 2 diabetes mellitus with diabetic autonomic (poly)neuropathy; I10 Essential (primary) hypertension; K21.00 Gastro-esophageal reflux disease with esophagitis, without bleeding; K44.9 Diaphragmatic hernia without obstruction or gangrene; K31.84 Gastroparesis; E87.6 Hypokalemia; F41.9 Anxiety disorder, unspecified; J45.909 Unspecified asthma, uncomplicated; E66.9 Obesity, unspecified; Z88.3 Allergy status to other anti-infective agents; Z79.2 Long term (current) use of antibiotics; Z79.4 Long term (current) use of insulin; Z79.84 Long term (current) use of oral hypoglycemic drugs; Z79.899 Other long term (current) drug therapy; Z68.31 Body mass index [BMI] 31.0-31.9, adult
CPT/HCPCS: 36415; 43239; 74176; 74177; 80048; 80053; 80061; 80076; 80307; 81001; 82010; 82306; 82607; 82746; 82962; 83036; 83605; 83690; 83735; 83880; 84100; 84443; 84484; 84702; 85025; 85048; 85610; 85730; 87045; 87081; 87177; 87426; 87427; 87804; 93005; 94640; 96374; 99291; G0378; J1815; J2250; J2405; J2470; J3490

== ENCOUNTER 2025-02-28 06:17 | Inpatient (IN) | payer MEDICARE, MEDICAID ==
[~2025-02-28] VITALS: Ht 162.6 cm; Wt 84.3 kg
[~2025-02-28 06:17] MED LIST changes: +DICY10CA PO; +METO-281 PO; +SUCR1TAB31 PO
--- NOTE | 2025-02-28 07:10 | ED.PDOC ---
GI ASSESSMENT HPI Comments 49 year old female presents to the ED with a chief complaint of abdominal pain onset 02/25/25. Patient was discharged from [facility] on 02/25/25, with diagnosis of acute gastroenteritis. Shortly after began experiencing intermittent abdominal pain as well as nausea, vomiting. Since last night, symptoms have been constant, pain has worsen. PMHx Anxiety, asthma, DM, gallstones, HTN. Denies fever, chills, diarrhea, constipation, hematemesis, dysuria, hematuria, chest pain, shortness of breath.No other symptoms or modifying factors present at this time. Chief Complaint: Abdominal Pain Time Seen by MD: 07:05 Primary Care Provider: ASAD CERVANTES Reviewed Notes: Medications, Allergies Allergies: Coded Allergies: Atorvastatin (Unverified Allergy, Unknown, 03/09/23) Patient states that her mouth and throat swell, and she gets generalized itching and hives Sulfamethoxazole w/Trimethoprim (Verified Allergy, Unknown, 05/24/20) Home Meds Active Scripts Metoclopramide Hcl (Reglan) 10 Mg Tab, 10 MG PO TIDBM PRN, #20 TAB [facility]25 Metoclopramide Hcl (Reglan) 10 Mg Tab, 10 MG PO TID for 5 Days, #15 TAB [facility]/25/25 Dicyclomine Hcl (BENTYL CAPSULE) 10 Mg Cp, 1 CAP PO TID PRN for 7 Days, #21 CAP [facility] 02/25/25 Sucralfate (CARAFATE) 1 Gm Tab, 1 GM PO BID for 21 Days, #42 TAB [facility] 02/25/25 Pantoprazole Sodium Sesquihydr (Pantoprazole Sodium) 40 Mg Tab, 40 MG PO DAILY for 30 Days, #30 TAB 1 [facility]25 Phenazopyridine HCl (Phenazopyridine Hydrochol) 200 Mg Tab, 200 MG PO TID PRN, #9 TAB prn urinary pain Prov:SYED VALENZUELA MD 11/21/24 Ondansetron Odt 4MG Tab (ZOFRAN PO) 4 Mg Tb, 4 MG PO TID PRN, #30 TAB prn nausea/vomiting ODT TAB-DISSOLVE IN MOUTH, THEN SWALLOW Prov:SYED VALENZUELA MD 11/21/24 Cephalexin Monohydrate (Cephalexin) 500 Mg Cap, 1 CAP PO QID for 10 Days, #40 CAP Prov:SYED VALENZUELA MD 11/21/24 Benzonatate (Benzonatate) 200 Mg Cap, 1 CAP PO TIDP, #30 CAP Prov:LEDY VERGARA 07/16/24 Methylprednisolone (Medrol Dosepak) 4 Mg Reddy, 4 MG PO UD, #21 TAB UAD Prov:LEDY VERGARA 07/16/24 Amitriptyline Hcl (Amitriptyline Hcl) 25 Mg Tab, 1 TAB PO QHSP PRN, #20 TAB Prov:LEDY VERGARA 03/12/24 Gabapentin (Gabapentin) 300 Mg Cap, 300 MG PO BID, #30 CAP Prov:LEDY VERGARA 03/12/24 Cephalexin (KEFLEX CAPSULE) 250 Mg Cp, 500 MG PO BID for 10 Days, #40 TAB Prov:ELLE ANG MD 02/26/24 Valacyclovir Hcl (Valtrex) 1 Gm Tab, 1 TAB PO TID for 14 Days, #42 TAB Prov:RACHEL TORRESP 02/22/24 Ciprofloxacin Hcl (Cipro) 500 Mg Tab, 1 TAB PO BID for 5 Days, #10 TAB Prov:RACHEL TORRESP 02/21/24 Insulin Glargine (Lantus) 100 Unit/Ml Inj, 25 UNIT SC QAM for 30 Days, #1 INJ 2 Refills Prov:BALJINDER GUZMÁN [facility] 01/15/24 Metformin Hydrochloride (Metformin Hcl) 1,000 Mg Tab, 1 TAB PO BID for 30 Days, #60 TAB Prov:BALJINDER GUZMÁN [facility] 01/15/24 Lidocaine (LIDODERM 5% TOPICAL PATCH) 1 Patch Ph, 1 PATCH TOP DAILY for 30 Days, #30 PATCH 0 Refills Prov:ZAINAB QURESHI NP 12/29/23 Methocarbamol (Methocarbamol) 750 Mg Tab, 750 MG PO BID, #20 TAB Prov:LEDY VERGARA 11/05/23 Sucralfate (Sucralfate) 1 Gm Tab, 1 GM PO QID, #120 TAB Prov:NUNU SHAVER MD 09/03/23 Pantoprazole Sodium Sesquihydr (Pantoprazole Sodium) 40 Mg Tab, 40 MG PO BID, #60 TAB Prov:NUNU HSAVER MD 09/03/23 Pantoprazole Sodium Sesquihydr (Pantoprazole Sodium) 40 Mg Tab, 40 MG PO DAILY, #30 TAB Prov:NUNU SHAVER MD 03/11/23 Reported Medications Cholecalciferol (VITAMIN D3) 2,000 Unit Tab, 1 TAB PO DAILY, % 03/10/23 Dexlansoprazole (Dexlansoprazole) 30 Mg Cap, 1 TAB PO DAILY 03/10/23 Beclomethasone Dipropionate (Qvar Redihaler) 40 Mcg/Act Aer, 2 PUFF INH DAILY 03/10/23 Oxycodone W/ Acetaminophen (Percocet 5/325MG) 1 Tab Tb, 1 TAB PO TID PRN for PAIN SCALE 7 THRU 10, % 03/10/23 Ondansetron HCl (Ondansetron Hydrochloride) 4 Mg Tab, 1 TAB PO DAILY 03/10/23 Docusate Sodium (Docusate Sodium) 100 Mg Cap, 1 CAP PO DAILY 03/10/23 Information Source: Patient Mode of Arrival: Ambulatory Timing: Days Duration: Since onset Prehospital treatment: Pain Meds Quality: Sharp Severity: Moderate Recent: None Recent Hx of: None Pain Location: Epigastric, RUQ Modifying Factors: Nothing Associated sign and symptoms: Nausea, Vomiting, Abdominal Pain Past Medical History PAST MEDICAL HISTORY: Anxiety, Asthma, DM, Gallstones, HTN Surgical History: Hernia Repair ANALYTICAL LEAD History: No Pertinent ANALYTICAL LEAD History Family History Family History: Reviewed,noncontributory to illness, No family hx ofKidney mary, No family hx of Liver mary, Family hx of DM, Family hx of Cancer Social History Smoker: Non-Smoker Alcohol: Denies ETOH Use Drugs: Denies Drug Use Lives In: Home Constitutional: denies: chills, diaphoresis, fatigue, fever, malaise, sweats, weakness, others EENTM: denies: blurred vision, double vision, ear bleeding, ear discharge, ear drainage, ear pain, ear ringing, eye pain, eye redness, hearing loss, mouth pain, mouth swelling, nasal discharge, nose bleeding, nose congestion, nose pain, photophobia, tearing, throat pain, throat swelling, voice changes, others Respiratory: denies: cough, hemoptysis, orthopnea, SOB at rest, shortness of breath, SOB with excertion, stridor, wheezing, others Cardiovascular: denies: chest pain, dizzy spells, diaphoresis, Dyspnea on exertion, edema, irregular heart beat, left arm pain, lightheadedness, palpitations, PND, syncope, others Gastrointestinal: reports: abdominal pain, nausea, vomiting; denies: abdomen distended, blood streaked bowels, constipated, diarrhea, dysphagia, difficulty swallowing, hematemesis, melena, poor appetite, poor fluid intake, rectal bleeding, rectal pain, others Genitourinary: denies: abnormal vagina bleeding, burning, dyspareunia, dysuria, flank pain, frequency, hematuria, incontinence, pain, , vagina discharge, urgency, others Neurological: denies: dizziness, fainting, headache, left sided numbness, left sided weakness, numbness, paresthesia, pre-existing deficit, right sided numbness, right sided weakness, seizure, speech problems, tingling, tremors, weakness, others Musculoskeletal: denies: back pain, gout, joint pain, joint swelling, muscle pain, muscle stiffness, neck pain, others Integumetry: denies: bruises, change in color, change in hair/nails, dryness, laceration, lesions, lumps, rash, wounds, others Allergic/Immunocompromised: denies: Difficulty Healing, Frequent Infections, Hives, Itching, others Hematologic/Lymphatic: denies: anemia, blood clots, easy bleeding, easy bruising, swollen glands, others Endocrine: denies: excessive hunger, excessive sweating, excessive thirst, excessive urination, flushing, intolerance to cold, intolerance to heat, unexpla ined weight gain, unexplained weight loss, others Psychiatric: denies: anxiety, bipolar disorder, depression, hopeless, panic disorder, schizophrenia, sleepless, suicidal, others All Other Systems: Reviewed and Negative Physical Exam General Appearance: Moderate Distress, Normal HEENT: Normal ENT Inspection, Pharynx Normal, TMs Normal Neck: Full Range of Motion, Non-Tender, Normal, Normal Inspection Respiratory: Chest Non-Tender, Lungs Clear, No Accessory Muscle Use, No Respiratory Distress, Normal Breath Sounds Cardiovascular: No Edema, No JVD, No Murmur, No Gallop, Normal Peripheral Pulses, Regular Rate/Rhythm Breast Exam: Deferred Gastrointestinal: Diffuse, No Organomegaly, No Pulsatile Mass, Normal Bowel Sounds, Soft Genitalia: Deferred Pelvic: Deferred Rectal: Deferred Extremities: No calf tenderness, Normal capillary refill, Normal inspection, Normal range of motion, Non-tender, No pedal edema Musculoskeletal : Apperance: Normal Neurologic: Alert, blood splatter analyst II-XII nml as Tested, No Motor Deficits, Normal Affect, Normal Mood, No Sensory Deficits Cerebellar Function: Normal Reflexes: Normal Skin: Dry, Normal Color, Warm Peripheral Pulses: 3+ Radial (R), 3+ Radial (L) Lymphatic: No Adenopathy Was a procedure done? Was a procedure done?: No GI differential Dx Differential Diagnosis: Constipation, Diverticular disease, Esophagitis, Gastritis/PUD, Gastroenteritis X-Ray, Labs, Meds, VS Vital Signs Date Time Temp Pulse Resp B/P (MAP) Pulse Ox O2 Delivery O2 Flow Rate FiO2 02/28/25 06:19 98.1 117 20 155/98 99 98.1 Lab Test 02/28/25 07:23 Range/Units White Blood Count 8.6 4.4-10.8 10^3/uL Red Blood Count 4.88 4.0-5.20 10^6/uL Hemoglobin 14.0 12.2-16.2 g/dL Hematocrit 40.7 36.0-46.0 % Mean Corpuscular Volume 83.5 80.0-100.0 fL Mean Corpuscular Hemoglobin 28.6 28.0-32.0 pg Mean Corpuscular Hemoglobin Concent 34.3 32.0-36.0 g/dL Red Cell Distribution Width 13.8 11.8-14.3 % Platelet Count 395 140-450 10^3/uL Mean Platelet Volume 7.7 6.9-10.8 fL Neutrophils (%) (Auto) 70.4 37.0-80.0 % Lymphocytes (%) (Auto) 20.0 10.0-50.0 % Monocytes (%) (Auto) 6.3 0.0-12.0 % Eosinophils (%) (Auto) 2.0 0.0-7.0 % Basophils (%) (Auto) 1.3 0.0-2.0 % Neutrophils # (Auto) 6.1 1.6-8.6 10 ^3/uL Lymphocytes # (Auto) 1.7 0.4-5.4 10 ^3/uL Monocytes # (Auto) 0.5 0-1.3 10 ^3/uL Eosinophils # (Auto) 0.2 0-0.8 10 ^3/uL Basophils # (Auto) 0.1 0-0.2 10 ^3/uL Nucleated Red Blood Cells 0.1 % Sodium Level Pending Potassium Level Pending Chloride Level Pending Carbon Dioxide Level Pending Anion Gap Pending Blood Urea Nitrogen Pending Creatinine Pending Glomerular Filtration Rate Calc Pending BUN/Creatinine Ratio Pending Serum Glucose Pending Calcium Level Pending Total Bilirubin Pending Aspartate Amino Transferase (AST) Pending Alanine Aminotransferase (ALT) Pending Alkaline Phosphatase Pending Total Protein Pending Albumin Pending Lipase Pending Current Medications Medications (Trade) Dose Ordered Sig/Emilia Route Start Time Stop Time Status Last Admin Sodium Chloride 1,000 ml @ 1,000 mls/hr Q1H ONCE IVB 02/28/25 07:15 02/28/25 08:14 02/28/25 07:15 Patient alert. Came in because of abdominal pain. Vitals stable. Answering questions. Blood pressure slightly elevated. She was seen here and discharged recently. Endoscope done at that time showed gastritis. She continues to have pain. Establish intravenous access. Was given fluids. Was given morphine. Was given Zofran. Reviewed her previous visit. Continue monitoring. [place] [id number] Ph: [phone] DIAGNOSTIC IMAGING Diagnostic Imaging Report : [id number] Signed PATIENT: CHRISTOPHER MENDOZACCT: [id number] UNIT: [id number] : 1975 LOC: ER ROOM / BED: / AGE / SEX: 49 / F ADM STATUS: REG ER SERVICE 5 ORDERING PHYSICIAN: PRAMOD GOODRICH MD PROCEDURE(s): ABPL - CT AB PEL WO CON-NO ORAL OR IV REASON: colitis ORDER NUMBER(s): [id number], ACCESSION NUMBER(s): [id number] Exam: CT CT AB PEL WO CON-NO ORAL OR IV History: Colitis Comparison Study: CT scan of the abdomen pelvis dated 02/23/2025. Technique: Multidetector spiral CT of the abdomen and pelvis was performed from lung bases to pubic symphysis. Imaging was performed without intravenous contrast. Coronal and sagittal multiplanar reformats were obtained from the axial data set by the technologist. Radiation Dose : 1. Abdomen/Pelvis: CTDIvol 14.9 mGy, DLP 877.32 mGy*cm. Findings: Evaluation of vasculature and solid organs is limited due to lack of intravenous contrast use. Lung Bases: Lung bases are clear. Visualized portions of the heart and pericardium are unremarkable. Liver: The liver is normal in size. No focal lesions. Diffusely hypoattenuating liver parenchyma consistent with hepatic steatosis. Gallbladder and Biliary Tree: The gallbladder is unremarkable. No intrahepatic or extrahepatic biliary ductal dilatation. Spleen: Unremarkable Pancreas: The pancreas is grossly unremarkable. Adrenal Glands: Unremarkable Kidneys: Kidneys are unremarkable without calculi or hydronephrosis. GI tract: Hiatal hernia. No evidence of small bowel wall thickening or abnormal dilatation to suggest bowel obstruction. Colonic diverticulosis without acute diverticulitis. The appendix is visualized and is normal. Peritoneum/mesentery/retroperitoneum. No evidence of free intraperitoneal air. No ascites. No evidence of suspicious lymphadenopathy. Abdominal Wall: Unremarkable. Vasculature: The visualized abdominal aorta is normal in size and caliber. Evaluation of abdominal and pelvic vessels is limited due to lack of intravenous contrast. Urinary Bladder: Grossly unremarkable for degree of distention. Pelvic Organs: Unremarkable Musculoskeletal: No aggressive focal bony lesions, acute fractures or dislocation. IMPRESSION: 1. No acute abdominal or pelvic findings. 2. Hepatic steatosis. 3. Hiatal hernia. 4. Colonic diverticulosis without acute diverticulitis. Workstation: [id number] DICTATED BY: EVON SEE MD DICTATED DATE/TIME: 02/28/25752 SIGNED BY: EVON SEE MD SIGNED DATE/TIME: 02/28/25752 CC: Time of 1ST Reevaluation: 07:35 Reevaluation 1ST: Unchanged Patient Education/Counseling: Diagnosis, Treatment, Prognosis Family Education/Counseling: No Family Present SEPSIS Sepsis Screen Date sepsis recognized/suspect: Feb 28, 2025 Time Sepsis recognized/suspect: 06 Recent Procedure: No On Antibiotic Therapy: No Respiratory Rate >20: No Heart Rate >90: Yes Temp<36 C (96.8 F) or >38.3 C: No SBP <90 or MAP <65 mmHG: No New Acute Mental Status Change: No Is the patient on CPAP, BIPAP,: No Physician Orders Comprehensive Metabolic Panel (02/28/25 07:06) Lipase (02/28/25 07:06) Urinalysis (02/28/25 07:06) Sodium Chloride 0.9% (02/28/25 07:15) Ct Ab Pel Wo Con-No Oral Or Iv (02/28/25 07:06) Sodium Chloride 0.9% (02/28/25 07:15) Vital Signs Date Time Temp Pulse Resp B/P (MAP) Pulse Ox O2 Delivery O2 Flow Rate FiO2 02/28/25 06:19 98.1 117 20 155/98 99 98.1 Laboratory Tests Test 02/28/25 07:23 White Blood Count 8.6 10^3/uL (4.4-10.8) Medications Medications Dose Ordered Sig/Emilia Route Start Time Stop Time Status Last Admin Dose Admin Sodium Chloride 1,000 ml @ 1,000 mls/hr Q1H ONCE IVB 02/28/25 07:15 02/28/25 08:14 02/28/25 07:15 Departure 1 Departure Time of Disposition: 07:22 Impression: Primary Impression: Acute abdominal pain Disposition: ADMITTED INPATIENT Admit to: Med Surg Condition: Guarded Critical Care Note Critical Care Time?: No Stability Stability form required: No Heart Score Heart Score: Heart Score Response (Comments) Value History N/A 0 EKG N/A 0 Age N/A 0 Risk Factors N/A 0 Troponin N/A 0 Total 0 I personally scribed for PRAMOD GOODRICH MD ([email or web address]) on 02/28/25 at 07:10. Electronically submitted by Starr Gonzales ([email or web address]). I personally scribed for PRAMOD GOODRICH MD ([email or web address]) on 02/28/25 at 08:02. Electronically submitted by Starr Gonzales ([email or web address]). PRAMOD GOODRICH MD Feb 28, 2025 07:10
[2025-02-28] MEDS: SODIUM CHLORIDE 0.9% 1,000 ML IV ONE (07:15)
[2025-02-28] MEDS: SODIUM CHLORIDE 0.9% 1,000 ML IVB ONE (07:15)
[2025-02-28 07:53] LABS: Hematocrit 40.7 % (36.0-46.0); Hemoglobin 14.0 g/dL (12.2-16.2); Mean Corpuscular Hemoglobin 28.6 pg (28.0-32.0); Mean Corpuscular Volume 83.5 fL (80.0-100.0); Nucleated Red Blood Cells % 0.1 %
--- NOTE | 2025-02-28 07:55 | DVH ---
Exam: CT CT AB PEL WO CON-NO ORAL OR IV History: Colitis Comparison Study: CT scan of the abdomen pelvis dated 02/23/2025. Technique: Multidetector spiral CT of the abdomen and pelvis was performed from lung bases to pubic s ymphysis. Imaging was performed without intravenous contrast. Coronal and sagittal multiplanar reform ats were obtained from the axial data set by the technologist. Radiation Dose : 1. Abdomen/Pelvis: CTDIvol 14.9 mGy, DLP 877.32 mGy*cm. Findings: Evaluation of vasculature and solid organs is limited due to lack of intravenous contrast use. Lung Bases: Lung bases are clear. Visualized portions of the heart and pericardium are unremarkable. Liver: The liver is normal in size. No focal lesions. Diffusely hypoattenuating liver parenchyma con sistent with hepatic steatosis. Gallbladder and Biliary Tree: The gallbladder is unremarkable. No intrahepatic or extrahepatic biliar y ductal dilatation. Spleen: Unremarkable Pancreas: The pancreas is grossly unremarkable. Adrenal Glands: Unremarkable Kidneys: Kidneys are unremarkable without calculi or hydronephrosis. GI tract: Hiatal hernia. No evidence of small bowel wall thickening or abnormal dilatation to suggest bowel obstruction. Colonic diverticulosis without acute diverticulitis. The appendix is visualized a nd is normal. Peritoneum/mesentery/retroperitoneum. No evidence of free intraperitoneal air. No ascites. No evidenc e of suspicious lymphadenopathy. Abdominal Wall: Unremarkable. Vasculature: The visualized abdominal aorta is normal in size and caliber. Evaluation of abdominal a nd pelvic vessels is limited due to lack of intravenous contrast. Urinary Bladder: Grossly unremarkable for degree of distention. Pelvic Organs: Unremarkable Musculoskeletal: No aggressive focal bony lesions, acute fractures or dislocation. IMPRESSION: 1. No acute abdominal or pelvic findings. 2. Hepatic steatosis. 3. Hiatal hernia. 4. Colonic diverticulosis without acute diverticulitis. Discovery
[2025-02-28 08:08] LABS: Alanine Aminotransferase 40 U/L (7-40); Albumin 4.2 g/dL (3.2-4.8); Alkaline Phosphatase 94 U/L (46-116); Anion Gap 13 (5-15); BUN/Creatinine Ratio 14.9 (10.0-20.0); Bilirubin, Total 0.5 mg/dL (0.2-1.0); Blood Urea Nitrogen 10 mg/dL (9-23); Calcium 9.4 mg/dL (8.7-10.4); Carbon Dioxide 25 mmol/L (20-31); Chloride 100 mmol/L (98-107); Potassium 3.9 mmol/L (3.5-5.1); Sodium 138 mmol/L (136-145); Total Protein 7.0 g/dL (5.7-8.2)
[2025-02-28 08:09] LABS: Glucose 188 mg/dL (74-106)
[2025-02-28 08:46] LABS: Lipase 45 U/L (12-53)
[2025-02-28] MEDS: ONDANSETRON HCL 4 MG/2 ML VIAL IV ONE (09:07)
[2025-02-28] MEDS: MORPHINE SULFATE 4 MG/ML SYR/VIAL IV ONE (09:08)
[2025-02-28 10:15] LABS: Urine Protein, UAD TRACE (Negative)
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
[2025-02-28] MEDS: SODIUM CHLORIDE 0.9% 1,000 ML IV SCH (16:00)
[2025-02-28] MEDS ORDERED: DEXTROSE (50%) 50ML SYRG IV PRN (16:15)
[2025-02-28] MEDS: InsuLIN REG 1unit/0.01ml Soln (100units/ml) SC SCH (17:00)
[2025-02-28] MEDS: ACCU-CHEK COMFORT CURVE STRIP VI SCH (17:00)
[2025-02-28 17:23] LABS: INR 1.0 (0.9-1.15); Partial Thromboplastin Time 28.1 SEC (24.5-34.5); Prothrombin Time 10.6 sec (9.3-11.8)
[2025-02-28 18:21] LABS: HDL Cholesterol 58.0 mg/dL (40-59); Magnesium 1.5 mg/dL (1.6-2.6); Triglycerides 188.0 mg/dL (< 150)
[2025-02-28 18:22] LABS: Cholesterol 206.0 mg/dL (< 200)
[2025-02-28] MEDS: ONDANSETRON HCL 4 MG/2 ML VIAL IV PRN (18:58)
[2025-02-28] MEDS: SUCRALFATE 1 GM TAB PO SCH (18:58)
[2025-02-28] MEDS: MORPHINE SULFATE INJ 2 MG/ml SYRG IV PRN (18:59)
--- NOTE | 2025-02-28 19:15 | ECG ---
[facility] [place] Test Date: 2025-02-28 Test Time: 19:14:08 Pat Name: CHRISTOPHER MENDOZA Department: [facility] ED Patient ID: [facility]-[id number] Room: [address] [place] [address] Gender: F Oncology Social Work: pierre : 1975 Requested By: NISREEN CEDILLO Order Number: [id number] Reading MD: Branden Correa Measurements Intervals [place] Rate: 78 P: 47 ME: 131 QRS: -46 QRSD: 125 T: 25 QT: 435 QTc: 496 Interpretive Statements Sinus rhythm RBBB and LAFB Electronically Signed On 03-01-2025 17:00:33 PDT by Branden Correa Please click the below link to view image of tracing.
[2025-02-28] MEDS: PANTOPRAZOLE 40 MG/10 ML VIAL INJ IV SCH (22:23)
[2025-02-28 22:48] LABS: Opiate Scree,Urine Neg (NEGATIVE)
[2025-02-28 22:51] LABS: Amphetamine Screen, Urine Neg (NEGATIVE); Barbiturate Scree,Urine Neg (NEGATIVE); Benzodiazephine Screen, Urine Neg (NEGATIVE); Cannabinoid Screen, Urine Neg (NEGATIVE); Cocaine Screen, Urine Neg (NEGATIVE); Phencyclidine Screen, Urine Neg (NEGATIVE)
[2025-03-01] VITALS (10 sets, daily range): BP systolic 116–138; BP diastolic 58–67; PULSE 71–86; RESP 16–18; TEMP 97.9–98.3; O2SAT 95–100
[2025-03-01] MEDS: MAGNESIUM SULFATE 1GM/100ML 100 ML IV SCH (02:17)
[2025-03-01 04:25] LABS: COVID19 ANTIGEN SOFIA FIA NEGATIVE (NEGATIVE)
[2025-03-01 08:29] LABS: Hematocrit 39.7 % (36.0-46.0); Hemoglobin 13.3 g/dL (12.2-16.2); Mean Corpuscular Hemoglobin 28.1 pg (28.0-32.0); Mean Corpuscular Volume 84.2 fL (80.0-100.0); Nucleated Red Blood Cells % 0.1 %
[2025-03-01 08:36] LABS: INR 1.02 (0.9-1.15); Partial Thromboplastin Time 27.9 SEC (24.5-34.5); Prothrombin Time 10.8 sec (9.3-11.8)
[2025-03-01 08:46] LABS: Alanine Aminotransferase 35 U/L (7-40); Albumin 4.0 g/dL (3.2-4.8); Alkaline Phosphatase 81 U/L (46-116); Anion Gap 12 (5-15); BUN/Creatinine Ratio 20.3 (10.0-20.0); Bilirubin, Total 0.5 mg/dL (0.2-1.0); Blood Urea Nitrogen 13 mg/dL (9-23); Calcium 9.0 mg/dL (8.7-10.4); Carbon Dioxide 24 mmol/L (20-31); Chloride 102 mmol/L (98-107); Sodium 138 mmol/L (136-145); Total Protein 6.7 g/dL (5.7-8.2)
[2025-03-01 08:48] LABS: Glucose 141 mg/dL (74-106); Potassium 3.4 mmol/L (3.5-5.1)
[2025-03-01] MEDS: ENOXAPARIN SOD 40 MG/0.4 ML SYRINGE SC SCH (09:54)
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
[2025-03-01] MEDS: ALBUTEROL SULF 2.5 MG/0.5ML(0.5%) NEB SOLN NEB SCH (22:19)
[2025-03-01] MEDS: ERGOCALCIFEROL 50,000 UNIT(1.25MG) CAP PO SCH (22:32)
[2025-03-01] MEDS: POTASSIUM CHL 20 Meq TABLET PO ONE (22:32)
[2025-03-02] VITALS (17 sets, daily range): BP systolic 121–140; BP diastolic 64–80; PULSE 74–89; RESP 15–20; TEMP 98–98.4; O2SAT 93–100
[2025-03-02 06:36] LABS: Chloride 107 mmol/L (98-107); Potassium 3.7 mmol/L (3.5-5.1); Sodium 141 mmol/L (136-145)
[2025-03-02 06:37] LABS: Anion Gap 10 (5-15); Carbon Dioxide 24 mmol/L (20-31)
[2025-03-02 06:41] LABS: Hematocrit 35.9 % (36.0-46.0); Hemoglobin 12.2 g/dL (12.2-16.2); Mean Corpuscular Hemoglobin 28.3 pg (28.0-32.0); Mean Corpuscular Volume 83.2 fL (80.0-100.0); Nucleated Red Blood Cells % 0.0 %
[2025-03-02 06:42] LABS: BUN/Creatinine Ratio 12.1 (10.0-20.0)
[2025-03-02 06:46] LABS: Blood Urea Nitrogen 8 mg/dL (9-23); Calcium 8.6 mg/dL (8.7-10.4); Glucose 177 mg/dL (74-106)
[2025-03-02] MEDS ORDERED: MAALOX PLUS or MAALOX 30 ML PO PRN (14:00)
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
[2025-03-02] MEDS ORDERED: ONDANSETRON ODT 4 MG TAB PO PRN (19:00)
[2025-03-03] VITALS (7 sets, daily range): BP systolic 136–161; BP diastolic 71–94; PULSE 75–94; RESP 17–18; TEMP 97.3–98.5; O2SAT 97
[2025-03-03] MEDS: PANTOPRAZOLE 40 MG TAB PO SCH (06:06)
[2025-03-03 07:06] LABS: Hematocrit 35.1 % (36.0-46.0); Hemoglobin 11.8 g/dL (12.2-16.2); Mean Corpuscular Hemoglobin 28.3 pg (28.0-32.0); Mean Corpuscular Volume 84.0 fL (80.0-100.0); Nucleated Red Blood Cells % 0.1 %
[2025-03-03 07:13] LABS: Anion Gap 11 (5-15); Carbon Dioxide 25 mmol/L (20-31); Chloride 104 mmol/L (98-107); Potassium 3.7 mmol/L (3.5-5.1); Sodium 140 mmol/L (136-145)
[2025-03-03 07:14] LABS: Calcium 8.5 mg/dL (8.7-10.4)
[2025-03-03 07:19] LABS: BUN/Creatinine Ratio 9.8 (10.0-20.0)
[2025-03-03 07:20] LABS: Blood Urea Nitrogen 6 mg/dL (9-23); Glucose 245 mg/dL (74-106)
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
[2025-03-03] MEDS ORDERED: ERGO1CAP23 PO ×2 (16:48)
[2025-03-03] MEDS ORDERED: LEVO500T91 PO ×2 (16:48)
[2025-03-03] MEDS ORDERED: MET500T PO ×2 (16:48)
== END 2025-03-03 16:45 | disposition home or self-care (01) | DRG 391 ==
LOC: ER 06:17 → OVERFLOW 15:52 → EAST 03-01 23:51
PROVIDERS: ADMIT Student in an Organized Health Care Education/Training Program; ATTEND Emergency Medicine
DX: A09 Infectious gastroenteritis and colitis, unspecified (principal); U07.1 COVID-19; E11.43 Type 2 diabetes mellitus with diabetic autonomic (poly)neuropathy; K76.0 Fatty (change of) liver, not elsewhere classified; Z68.32 Body mass index [BMI] 32.0-32.9, adult; E66.9 Obesity, unspecified; J45.909 Unspecified asthma, uncomplicated; I10 Essential (primary) hypertension; E55.9 Vitamin D deficiency, unspecified; G89.29 Other chronic pain; K29.00 Acute gastritis without bleeding; K31.84 Gastroparesis; K44.9 Diaphragmatic hernia without obstruction or gangrene; K57.30 Diverticulosis of large intestine without perforation or abscess without bleeding; K80.20 Calculus of gallbladder without cholecystitis without obstruction; F41.9 Anxiety disorder, unspecified; K31.89 Other diseases of stomach and duodenum; E87.6 Hypokalemia; Z88.3 Allergy status to other anti-infective agents; Z86.16 Personal history of COVID-19; Z83.3 Family history of diabetes mellitus
CPT/HCPCS: 36415; 74176; 80048; 80053; 80061; 80307; 81001; 82306; 82607; 82962; 83605; 83690; 83735; 83880; 84100; 84443; 84484; 84702; 85025; 85048; 85610; 85730; 87045; 87081; 87177; 87426; 87427; 87804; 93005; 94640; G0378; J1815; J2405; J2470; J3490